=== PATIENT | female | born 1950 | race Caucasian/White ===

== ENCOUNTER 2020-06-29 08:57 | Emergency (ER) | payer MEDICARE, OTHER, SELFPAY ==
--- NOTE | 2020-06-29 09:05 | ED.GENADULT ---
HPI - General Adult General Chief complaint: Ear Stated complaint: Ear infection/dizziness Time Seen by Provider: 06/29/20 09:05 Source: patient Mode of arrival: ambulatory Limitations: no limitations History of Present Illness HPI narrative: 69-year-old female patient presents to the [facility] with complaints of fullness in the left ear for the past 2 days. Patient states it started 1 day when she was eating and states that she felt like she needed to pop in her ear but is unable to. Patient states that she woke up this morning and has some dizziness as well as a little bit of nausea. Denies any fevers, body aches or chills. Denies any actual pain to the ear. Patient states she has had a runny nose recently. Denies any cough, chest pain or shortness of breath. Patient denies taking anything for her symptoms. Patient states that at times when she gets allergies or seasonal sinus issues she has taken Flonase in the past but currently does not have any Flonase at this time. Related Data Home Medications Medication Instructions Recorded Confirmed aspirin 81 mg tablet,delayed 81 mg PO DAILY 10/10/19 11/04/19 release cholecalciferol (vitamin D3) 125 5,000 unit PO DAILY 10/10/19 11/04/19 mcg (5,000 unit) capsule Lantus Solostar U-100 Insulin 11/04/19 Allergies Allergy/AdvReac Type Severity Reaction Status Date / Time apixaban Allergy Unknown Rash Verified 06/29/20 09:12 canagliflozin Allergy Unknown Other Verified 06/29/20 09:12 cortisone Allergy Unknown Other Verified 06/29/20 09:12 pioglitazone Allergy Unknown Other Verified 06/29/20 09:12 Low Fat Milk Allergy Unknown Other Uncoded 10/09/19 12:14 Review of Systems Review of Systems: Narrative: CONSTITUTIONAL: Denies fever, chills, or sweats. EYES: Denies visual changes, redness, or discharge. ENT: Positive rhinorrhea, denies congestion, sore throat, positive fullness to left ear x2 days CARDIOVASCULAR: Denies chest pain, palpitations, or edema. RESPIRATORY: Denies cough or dyspnea. GASTROINTESTINAL: Denies abdominal pain, nausea, vomiting, or diarrhea. GENITOURINARY: Denies dysuria or hematuria. SKIN: Denies rash or itching. MUSCULOSKELETAL: Denies back pain, joint pain, or myalgia. NEUROLOGIC: Denies headache, numbness, or weakness. PSYCHIATRIC: Denies anxiety or depression. [facility] Past Medical History Medical History Chronic renal insufficiency, stage III (moderate) Coronary artery disease involving autologous artery coronary bypass graft Diabetes mellitus Hyperlipidemia associated with type 2 diabetes mellitus Hypertension associated with diabetes Iron deficiency anemia Ischemic cardiomyopathy Paroxysmal atrial fibrillation Vitamin B12 deficiency Vitamin D deficiency Surgical History Surgical History Hx of CABG S/P OBDULIO-BSO Family History Family History Other Diabetes mellitus Family history of arthritis Hypertension Social History Social History Smoking status: Never smoker Second hand tobacco smoke exposure: No Alcohol intake: never Comments At the time of my signature I agree with nursing past medical history, surgical, social, and family history. There is no relevant family history pertinent to the presenting complaint. Exam Narrative: Exam Narrative: GENERAL: Well-appearing, well-nourished, and in no acute distress. HEAD: Normocephalic, atraumatic. EYES: PERRLA and EOMI. ENT: Nares clear, no rhinorrhea or epistaxis. Mucous membranes moist. Posterior pharynx with no erythema, tonsillectomy, exudates or lesions present. There is some fluid noted behind the left TM on exam. No foreign bodies to the canal. No erythema noted. NECK: Supple. No lymphadenopathy CHEST: Clear to auscultation. No respiratory distress.
[2020-06-29 09:10] VITALS: BP 154/74; PULSE 75; RESP 20; TEMP 36.3; O2SAT 100
== END 2020-06-29 09:35 | disposition home or self-care (01) ==
PROVIDERS: Emergency Provider Nurse Practitioner Family; PCP Family Medicine
DX: H93.8X2 Other specified disorders of left ear (principal); I12.9 Hypertensive chronic kidney disease with stage 1 through stage 4 chronic kidney disease, or unspecified chronic kidney disease; E11.22 Type 2 diabetes mellitus with diabetic chronic kidney disease; N18.3 Chronic kidney disease, stage 3 (moderate); Z79.4 Long term (current) use of insulin; E78.5 Hyperlipidemia, unspecified; I48.0 Paroxysmal atrial fibrillation; Z95.5 Presence of coronary angioplasty implant and graft; Z79.82 Long term (current) use of aspirin
CPT/HCPCS: 99213; G0463

== ENCOUNTER 2020-10-12 08:32 | Emergency (ER) | payer MEDICARE, OTHER, SELFPAY ==
[2020-10-12 08:39] VITALS: BP 161/74; PULSE 87; RESP 16; TEMP 36.3; O2SAT 100
--- NOTE | 2020-10-12 08:54 | ED.SKABFB ---
HPI - Skin/Abscess/Foreign Bdy General Chief complaint: Skin/Abscess/Foreign Body Stated complaint: lt foot pos insfection Source: patient and RN notes reviewed Limitations: no limitations History of Present Illness HPI narrative: The patient, on several meds including insulin, presents with skin eruption. Patient states that she is seen by podiatry after ORIF several years ago. She developed a plantar callus and had that excised this week. She has since noticed for a couple days, well lateral to the excision site, pain and redness where her previous hardware is located at the proximal fifth [and other metatarsals]. Symptoms are mild, worse with palpation, unrelieved with given Bactroban cream; he denies fever, prior/other rashes, abscess/induration, discharge, streaking. Patient advised will be given 2 antibiotics, to see orthopedics in follow-up Related Data Home Medications Medication Instructions Recorded Confirmed aspirin 81 mg tablet,delayed 81 mg PO DAILY 10/10/19 11/04/19 release cholecalciferol (vitamin D3) 125 5,000 unit PO DAILY 10/10/19 11/04/19 mcg (5,000 unit) capsule Lantus Solostar U-100 Insulin 11/04/19 Allergies Allergy/AdvReac Type Severity Reaction Status Date / Time apixaban Allergy Unknown Rash Verified 08/30/20 14:15 canagliflozin Allergy Unknown Other Verified 08/30/20 14:15 pioglitazone Allergy Unknown Other Verified 08/30/20 14:15 Low Fat Milk Allergy Unknown Other Uncoded 10/09/19 12:14 Review of Systems Review of Systems: Narrative: General/Constitutional: No weight loss,fever Eyes: N0: Redness,discharge Ears/Nose/Throat: No: Epistaxis,ear discharge Respiratory: Denies: Hemoptysis Gastrointestinal: No Vomiting, Bleeding-rectal Skin: No Lumps, eruption Neurologic: No Focal Weakness,Sz Hematologic: Denies: Petechiae/Purpura Psychiatric: No: Suicida ideationl All Other Systems: Reviewed and Negative REPLACED BY [facility] Past Medical History Medical History (Updated 10/12/20 @ 09:42 by Jatinder Soliz MD) Chronic renal insufficiency, stage III (moderate) Coronary artery disease involving autologous artery coronary bypass graft Diabetes mellitus Hyperlipidemia associated with type 2 diabetes mellitus Hypertension associated with diabetes Iron deficiency anemia Ischemic cardiomyopathy Paroxysmal atrial fibrillation Vitamin B12 deficiency Vitamin D deficiency Surgical History Surgical History Hx of CABG S/P OBDULIO-BSO Family History Family History Other Diabetes mellitus Family history of arthritis Hypertension Social History Social History Smoking status: Never smoker Second hand tobacco smoke exposure: No Alcohol intake: never Comments At time of signature, agree with nursing past medical, surgical, social and family history. There is no relevant family history pertinent to the presenting complaint Exam Narrative: Exam Narrative: General Appearance: Well appearing, Well nourished, No distress EYE: PERRLA, EOMI, Conjunctiva clear Ears: External ear normal, Auditory canal normal Nose: Normal nose, Nares clear Mouth/Throat: Normal appearing, Normal lips Supple Respiratory: Airway patent, No respiratory distress Musculoskeletal: Normal strength (mostly intact, limited flexion/extension by pain), Tenderness (mild laterally, with mild decreased ROM), mild swelling (laterally), Other : fifth MT tenderness. Plantar callus procedure site well-healing without redness Skin: Warm, Dry, 2-3cm sized area of redness at the proximal fifth metatarsal without abscess/induration Neurological: A&O x3, S Normal affect Course Vital Signs Vital signs: Vital Signs Temperature 97.4 F L 10/12/20 08:39 Pulse Rate 87 10/12/20 08:39 Respiratory Rate 16 10/12/20 08:39 Blood Pressure 161/74 H 12
== END 2020-10-12 09:10 | disposition home or self-care (01) ==
PROVIDERS: Emergency Provider Emergency Medicine; PCP Family Medicine
DX: T81.40XA Infection following a procedure, unspecified, initial encounter (principal); I12.9 Hypertensive chronic kidney disease with stage 1 through stage 4 chronic kidney disease, or unspecified chronic kidney disease; E11.22 Type 2 diabetes mellitus with diabetic chronic kidney disease; N18.30 Chronic kidney disease, stage 3 unspecified; Z79.4 Long term (current) use of insulin; I25.10 Atherosclerotic heart disease of native coronary artery without angina pectoris; Z95.1 Presence of aortocoronary bypass graft; I48.0 Paroxysmal atrial fibrillation; E55.9 Vitamin D deficiency, unspecified
CPT/HCPCS: 99213; G0463

== ENCOUNTER 2021-03-14 10:44 | Emergency (ER) | payer MEDICARE, OTHER, SELFPAY ==
[2021-03-14 10:53] VITALS: BP 112/72; PULSE 88; RESP 16; TEMP 36.8; O2SAT 100
--- NOTE | 2021-03-14 11:03 | ED.SKABFB ---
HPI - Skin/Abscess/Foreign Bdy General Chief complaint: Skin/Abscess/Foreign Body Stated complaint: infection on right foot Time Seen by Provider: 03/14/21 11:00 Source: patient and RN notes reviewed Mode of arrival: ambulatory Limitations: no limitations History of Present Illness HPI narrative: 70-year-old female presents with concern for a wound on the bottom of her left foot. Reports she has had a chronic callus on the bottom of her right foot since she had a major foot surgery several years ago. Reports the callus had developed a scab, reports the scab came off and now there is a wound in the center of the callus. Reports she has been using mupirocin ointment, however has run out the mupirocin ointment. Reports distal to the open wound she has redness, slight swelling to her foot. MD complaint: other (wound) Related Data Home Medications Medication Instructions Recorded Confirmed aspirin 81 mg tablet,delayed 81 mg PO DAILY 10/10/19 11/04/19 release cholecalciferol (vitamin D3) 125 5,000 unit PO DAILY 10/10/19 11/04/19 mcg (5,000 unit) capsule Allergies Allergy/AdvReac Type Severity Reaction Status Date / Time apixaban Allergy Unknown Rash Verified 08/30/20 14:15 canagliflozin Allergy Unknown Other Verified 08/30/20 14:15 pioglitazone Allergy Unknown Other Verified 08/30/20 14:15 Low Fat Milk Allergy Unknown Other Uncoded 10/09/19 12:14 Review of Systems Review of Systems: Narrative: CONSTITUTIONAL: Denies malaise, chills, sweats, or fever. SKIN: Reports wound to the dorsal left foot with distal redness and swelling MUSCULOSKELETAL: Denies muscle skeletal pain All systems reviewed & are unremarkable except as noted in HPI and below PMFSH Past Medical History Medical History (Updated 03/14/21 @ 11:21 by Nita Hernandez NP) Chronic renal insufficiency, stage III (moderate) Coronary artery disease involving autologous artery coronary bypass graft Diabetes mellitus Hyperlipidemia associated with type 2 diabetes mellitus Hypertension associated with diabetes Iron deficiency anemia Ischemic cardiomyopathy Paroxysmal atrial fibrillation Vitamin B12 deficiency Vitamin D deficiency Surgical History Surgical History Hx of CABG S/P OBDULIO-BSO Family History Family History Other Diabetes mellitus Family history of arthritis Hypertension Social History Social History Smoking status: Never smoker Second hand tobacco smoke exposure: No Alcohol intake: never Comments At time of signature, agree with nursing past medical, surgical, social and family history. There is no relevant family history pertinent to the presenting complaint Exam Narrative: Exam Narrative: GENERAL: Well-appearing, well-nourished, and in no acute distress. HEAD: Normocephalic, atraumatic. EYES: PERRLA, conjunctivae clear NECK: Supple. CHEST: Speaks in full sentences. No respiratory distress. HEART: Regular rate and rhythm. Normal and equal peripheral pulses. EXTREMITIES: Left foot has normal strength and sensation, normal range of motion. No edema or ecchymosis. 5/5 strength with digit flexion and extension. Normal sensation with sensitivity to light touch and pain. No point tenderness. Capillary refill less than 3 seconds. SKIN: Warm, dry. 5 cm callus noted to the dorsal left foot with a central wound. The wound has a pink tissue bed and appears to possibly be tunneling. Distal to the wound the dorsal foot has approximately 8 cm diameter area of mild edema and erythema with small patches of ecchymosis NEURO: Alert and oriented x3. PSYCH: Normal mood and affect Course Course Emergency Course: Wet-to-dry dressing applied to the wound, patient instructed on how to do wet-to-dry dressing at home, patient instructed she needs to follow-up with wound c
== END 2021-03-14 11:27 | disposition home or self-care (01) ==
PROVIDERS: Emergency Provider Nurse Practitioner; PCP Family Medicine
DX: S91.302A Unspecified open wound, left foot, initial encounter (principal); X58.XXXA Exposure to other specified factors, initial encounter; I13.10 Hypertensive heart and chronic kidney disease without heart failure, with stage 1 through stage 4 chronic kidney disease, or unspecified chronic kidney disease; E11.22 Type 2 diabetes mellitus with diabetic chronic kidney disease; N18.30 Chronic kidney disease, stage 3 unspecified; I25.10 Atherosclerotic heart disease of native coronary artery without angina pectoris; E78.5 Hyperlipidemia, unspecified; D50.9 Iron deficiency anemia, unspecified; I48.91 Unspecified atrial fibrillation; I25.5 Ischemic cardiomyopathy; Z95.1 Presence of aortocoronary bypass graft; Z79.82 Long term (current) use of aspirin
CPT/HCPCS: 99213; G0463

== ENCOUNTER 2021-05-12 14:06 | Outpatient (CLI) | payer MEDICARE, OTHER, SELFPAY ==
[2021-05-12 14:31] LABS: Basophils Absolute Auto 0.1 K/mm3 (0.0-0.1); Basophils Percent Auto 0.7 % (0.2-1.2); Eosinophils Absolute Auto 0.8 K/mm3 (0-0.3); Eosinophils Percent Auto 7.3 % (0-4.4); Hematocrit 35.2 % (37.0-47.0); Hemoglobin 10.7 g/dL (12.0-15.0); Immature Granulocyte Absolute 0.05 K/mm3 (0.00-0.031); Immature Granulocyte Percent A 0.4 % (0-0.5); Lymphocytes Percent Auto 9.6 % (18.3-44.2); Mean Corpuscular HGB Conc 30.4 g/dl (32-36); Mean Corpuscular Hemoglobin 24.4 pg (26-34); Mean Corpuscular Volume 80.4 fl (80-100); Mean Platelet Volume 9.8 fl (7.4-10.4); Monocytes Absolute Auto 0.7 K/mm3 (0.1-0.6); Monocytes Percent Auto 5.9 % (2.6-8.5); Neutrophils Absolute Auto 8.8 K/mm3 (1.3-6.7); Neutrophils Percent Auto 76.1 % (45.5-73.1); Platelet Count Result 322 k/mm3 (150-375); Red Blood Count 4.38 M/mm3 (4.2-5.4); Red Cell Distribution Width 17.4 % (11.5-14.5); Reticulocyte Hemoglobin Conten 27.3 pg (28.2-35.7); Reticulocyte Percent 1.84 % (0.7-4.3); Reticulocytes Absolute 0.08 B/L (32.2-175.7); White Blood Count 11.5 K/mm3 (4.5-10.0)
[2021-05-12 19:42] LABS: Iron 43 ug/dL (37-170)
[2021-05-12 19:45] LABS: Alanine Aminotransferase 13 U/L (4-35); Albumin Level 4.2 g/dL (3.5-5.1); Alkaline Phosphatase 91 U/L (38-126); Anion Gap 12 mmol/L (8-16); Aspartate Amino Transferase 22 U/L (14-36); Bilirubin,Total 0.4 mg/dL (0.2-1.3); Blood Urea Nitrogen 30 mg/dL (7-17); Calcium 9.4 mg/dL (8.4-10.2); Carbon Dioxide 27 mmol/L (22-30); Chloride 102 mmol/L (98-107); Estimated Glomerular Filt Rate 37; Glucose 150 mg/dL (65-105); Potassium 4.6 mmol/L (3.4-5.0); Sodium 141 mmol/L (137-145)
[2021-05-12 19:53] LABS: Percent Iron Saturation 12 % (20-50)
[2021-05-12 20:50] LABS: Vitamin B12 > 1000.0 pg/mL (239-931)
== END 2021-05-12 14:07 | disposition home or self-care (01) ==
LOC: ANHLAB 14:12
PROVIDERS: PCP Family Medicine; Visit Provider Internal Medicine Hematology & Oncology
DX: D64.9 Anemia, unspecified (principal)
CPT/HCPCS: 36415; 80053; 82607; 82668; 82728; 82746; 83540; 83550; 85025; 85046

== ENCOUNTER 2021-08-13 10:42 | Emergency (ER) | payer MEDICARE, OTHER, SELFPAY ==
[2021-08-13 10:51] VITALS: BP 180/82; PULSE 92; RESP 16; TEMP 36.6; O2SAT 100
--- NOTE | 2021-08-13 11:17 | ED.EXTPRO ---
HPI - Extremity Problem General Chief complaint: Extremity Problem,Nontraumatic Stated complaint: INFECTION ON L FOOT Source: patient and RN notes reviewed Limitations: no limitations History of Present Illness HPI Narrative: The patient on several meds including for diabetes, presents with foot discomfort. Patient states she has been seen by podiatry in the past and had an ORIF about five years ago ; she also has 2 diabetic foot ulcers- a central arch one felt to be from post-op callus . She now complains of couple day worsening,of several year history ,of the larger quarter sized ulcer in the arch of the foot, with some slight surrounding flushing, streaking . No fever, discharge, malodor,foot neuropathy; she has a second, smaller better stage I ulcer distally at MTPJ. She would like antibiotics before an upcoming trip, patient advised to see PMD or podiatry in follow-up Related Data Home Medications Medication Instructions Recorded Confirmed aspirin 81 mg tablet,delayed 81 mg PO DAILY 10/10/19 11/04/19 release cholecalciferol (vitamin D3) 125 5,000 unit PO DAILY 10/10/19 11/04/19 mcg (5,000 unit) capsule Allergies Allergy/AdvReac Type Severity Reaction Status Date / Time apixaban Allergy Unknown Rash Verified 08/30/20 14:15 canagliflozin Allergy Unknown Other Verified 08/30/20 14:15 pioglitazone Allergy Unknown Other Verified 08/30/20 14:15 Low Fat Milk Allergy Unknown Other Uncoded 10/09/19 12:14 Review of Systems Review of Systems: General/Constitutional: No weight loss,fever Eyes: N0: Redness,discharge Ears/Nose/Throat: No: Epistaxis,ear discharge Respiratory: Denies: Hemoptysis Gastrointestinal: No Vomiting, Bleeding-rectal Skin: No Lumps, REPORTS eruption Neurologic: No Focal Weakness,Sz Hematologic: Denies: Petechiae/Purpura Psychiatric: No: Suicida ideationl All Other Systems: Reviewed and Negative [facility] Past Medical History Medical History (Updated 08/14/21 @ 11:25 by Jatinder Soliz MD) Chronic renal insufficiency, stage III (moderate) Coronary artery disease involving autologous artery coronary bypass graft Diabetes mellitus Hyperlipidemia associated with type 2 diabetes mellitus Hypertension associated with diabetes Iron deficiency anemia Ischemic cardiomyopathy Paroxysmal atrial fibrillation Vitamin B12 deficiency Vitamin D deficiency Surgical History Surgical History Hx of CABG S/P OBDULIO-BSO Family History Family History Other Diabetes mellitus Family history of arthritis Hypertension Social History Social History Second hand tobacco smoke exposure: No Alcohol intake: never Comments At time of signature, agree with nursing past medical, surgical, social and family history. There is no relevant family history pertinent to the presenting complaint Exam Narrative: General Appearance: Well appearing, Conjunctiva clear Ears: External ear normal, Auditory canal normal Nose: Normal nose, Nares clear Mouth/Throat: Normal appearing, Normal lips, Supple Respiratory: Airway patent, No respiratory distress MS-foot : Quarter size, grade 2-3 diabetic foot ulcer center of arch with dry, good borders; Nl strength (mostly intact, limited flexion/extension by pain), Min tenderness ( laterally, with mild decreased ROM), no swelling Other (no anterior drawer, no collateral laxity, no Achilles tenderness, no fifth MT tenderness) Skin: Warm, Dry, Normal color, scant flush/inflamed early cellulitis lateral aspect of foot Neurological: A&O x3, Speech clear, CN II-XII intact Psychiatric: Normal mood, Normal affect Course Vital Signs Vital signs: Vital Signs Temperature 97.9 F 08/13/21 10:51 Pulse Rate 92 08/13/21 10:51 Respiratory Rate 16 08/13/21 10:51 Blood Pressure 180/82 H 08/13/21 10:51 Pulse Ox
== END 2021-08-13 11:28 | disposition home or self-care (01) ==
PROVIDERS: Emergency Provider Emergency Medicine; PCP Family Medicine
DX: L03.116 Cellulitis of left lower limb (principal); E10.621 Type 1 diabetes mellitus with foot ulcer; L97.519 Non-pressure chronic ulcer of other part of right foot with unspecified severity; Z79.82 Long term (current) use of aspirin; I13.10 Hypertensive heart and chronic kidney disease without heart failure, with stage 1 through stage 4 chronic kidney disease, or unspecified chronic kidney disease; E10.22 Type 1 diabetes mellitus with diabetic chronic kidney disease; N18.30 Chronic kidney disease, stage 3 unspecified; E78.5 Hyperlipidemia, unspecified; D50.9 Iron deficiency anemia, unspecified; I25.5 Ischemic cardiomyopathy; I48.0 Paroxysmal atrial fibrillation; Z79.4 Long term (current) use of insulin
CPT/HCPCS: 99213; G0463

== ENCOUNTER 2021-08-21 08:44 | Outpatient (CLI) | payer MEDICARE, OTHER, SELFPAY ==
[2021-08-21 09:03] LABS: Basophils Absolute Auto 0.1 K/mm3 (0.0-0.1); Basophils Percent Auto 0.6 % (0.2-1.2); Eosinophils Absolute Auto 0.1 K/mm3 (0-0.3); Eosinophils Percent Auto 0.9 % (0-4.4); Hematocrit 37.7 % (37.0-47.0); Hemoglobin 11.5 g/dL (12.0-15.0); Immature Granulocyte Absolute 0.07 K/mm3 (0.00-0.031); Immature Granulocyte Percent A 0.5 % (0-0.5); Lymphocytes Absolute Auto 0.94 K/mm3 (0.9-3.2); Lymphocytes Percent Auto 6.5 % (18.3-44.2); Mean Corpuscular HGB Conc 30.5 g/dl (32-36); Mean Corpuscular Hemoglobin 24.6 pg (26-34); Mean Corpuscular Volume 80.7 fl (80-100); Mean Platelet Volume 9.6 fl (7.4-10.4); Monocytes Absolute Auto 0.9 K/mm3 (0.1-0.6); Monocytes Percent Auto 6.1 % (2.6-8.5); Neutrophils Absolute Auto 12.3 K/mm3 (1.3-6.7); Neutrophils Percent Auto 85.4 % (45.5-73.1); Platelet Count Result 407 k/mm3 (150-375); Red Blood Count 4.67 M/mm3 (4.2-5.4); Red Cell Distribution Width 16.2 % (11.5-14.5); White Blood Count 14.4 K/mm3 (4.5-10.0)
[2021-08-21 10:43] LABS: Iron 43 ug/dL (37-170)
[2021-08-21 10:46] LABS: Anion Gap 12 mmol/L (8-16); Blood Urea Nitrogen 46 mg/dL (7-17); Calcium 9.5 mg/dL (8.4-10.2); Carbon Dioxide 27 mmol/L (22-30); Chloride 101 mmol/L (98-107); Estimated Glomerular Filt Rate 26; Glucose 91 mg/dL (65-110); Potassium 4.3 mmol/L (3.4-5.0); Sodium 140 mmol/L (137-145)
[2021-08-21 10:54] LABS: Percent Iron Saturation 11 % (20-50)
== END 2021-08-21 08:45 | disposition home or self-care (01) ==
LOC: ANHLAB 08:46
PROVIDERS: PCP Family Medicine; Visit Provider Internal Medicine Hematology & Oncology
DX: D64.9 Anemia, unspecified (principal)
CPT/HCPCS: 36415; 80048; 82728; 83540; 83550; 85025

== ENCOUNTER 2021-12-29 10:18 | Emergency (ER) | payer MEDICARE, OTHER, SELFPAY ==
--- NOTE | 2021-12-29 10:52 | ED.FEMALEGU ---
HPI - Female Genitourinary General Chief complaint: Urogenital-Female Stated complaint: uti symptoms Time Seen by Provider: 12/29/21 10:50 Source: patient, RN notes reviewed and old records reviewed Mode of arrival: ambulatory Limitations: no limitations History of Present Illness HPI Narrative: 71 year old female who presents to [facility] with complaints of urinary burning, frequency, urgency and voiding of small amounts which started yesterday. Patient reports that she had increased symptoms during the night with pain and noted blood when she wipes. Patient denies any vaginal discharge or any itching. Patient reports that she had a urinary tract infection about a year ago but does not have history of frequent urinary tract infections but does have some renal insufficiency. Patient denies any suprapubic pain or any CVA tenderness, denies any fevers, chills or sweats, denies any nausea vomiting or any diarrhea. MD elicited complaint: dysuria and other (urgency frequency and voiding small amounts) Pertinent past history: diabetes Related Data Home Medications Medication Instructions Recorded Confirmed aspirin 81 mg tablet,delayed 81 mg PO DAILY 10/10/19 12/29/21 release cholecalciferol (vitamin D3) 125 5,000 unit PO DAILY 10/10/19 12/29/21 mcg (5,000 unit) capsule mecobalamin (vitamin B12) 5,000 5,000 mcg PO DAILY 09/23/21 12/29/21 mcg lozenge dabigatran etexilate [Pradaxa] mg PO 12/29/21 ferrous sulfate 5,000 mg PO BID 12/29/21 12/29/21 insulin aspart U-100 [Novolog 5 unit SUBCUT TID 12/29/21 12/29/21 Flexpen U-100 Insulin] insulin glargine [Lantus Solostar 96 unit SUBCUT DAILY 12/29/21 12/29/21 U-100 Insulin] semaglutide [Ozempic] 2.5 mg SUBCUT WEEKLY 12/29/21 12/29/21 Allergies Allergy/AdvReac Type Severity Reaction Status Date / Time apixaban Allergy Unknown Rash Verified 12/29/21 10:39 canagliflozin Allergy Unknown Other Verified 12/29/21 10:39 pioglitazone Allergy Unknown Other Verified 12/29/21 10:39 Low Fat Milk Allergy Unknown Other Uncoded 12/29/21 10:39 Review of Systems Review of Systems: CONSTITUTIONAL: Denies fever, chills, or sweats. EYES: Denies visual changes, redness, or discharge. ENT: Denies rhinorrhea, congestion, sore throat, or otalgia. CARDIOVASCULAR: Denies chest pain, palpitations, or edema. RESPIRATORY: Denies cough or dyspnea. GASTROINTESTINAL:Denies any abdominal pain, nausea, vomiting, or diarrhea. GENITOURINARY: Positive for dysuria or hematuria. SKIN: Denies rash or itching. MUSCULOSKELETAL: Denies back pain, joint pain, or myalgia. NEUROLOGIC: Denies headache, numbness, or weakness. PSYCHIATRIC: Positive for history of anxiety or depression. All systems reviewed & are unremarkable except as noted in HPI and below PMFSH Past Medical History Medical History (Updated 12/29/21 @ 11:02 by Bonnie Davis NP) Chronic renal insufficiency, stage III (moderate) Coronary artery disease involving autologous artery coronary bypass graft Diabetes mellitus Hyperlipidemia associated with type 2 diabetes mellitus Hypertension associated with diabetes Iron deficiency anemia Ischemic cardiomyopathy Paroxysmal atrial fibrillation Vitamin B12 deficiency Vitamin D deficiency Surgical History Surgical History Hx of CABG S/P OBDULIO-BSO Family History Family History Other Diabetes mellitus Family history of arthritis Hypertension Social History Social History Second hand tobacco smoke exposure: No Alcohol intake: never Substance use: never Substance use type: does not use Gender identity (if verbalized by the patient): Female Comments At time of signature, agree with nursing past medical, surgical, social and family history. There is no relevant family history pertinent to the presenting complaint Ex
[2021-12-29 11:02] VITALS: BP 151/75; PULSE 90; RESP 18; TEMP 36.2; O2SAT 100
[2021-12-29 11:06] VITALS: BP 151/75; PULSE 90; RESP 18; TEMP 36.2; O2SAT 100
== END 2021-12-29 11:09 | disposition home or self-care (01) ==
PROVIDERS: Emergency Provider Registered Nurse; PCP Family Medicine
DX: N39.0 Urinary tract infection, site not specified (principal); I13.10 Hypertensive heart and chronic kidney disease without heart failure, with stage 1 through stage 4 chronic kidney disease, or unspecified chronic kidney disease; E11.22 Type 2 diabetes mellitus with diabetic chronic kidney disease; N18.30 Chronic kidney disease, stage 3 unspecified; Z79.4 Long term (current) use of insulin; I25.10 Atherosclerotic heart disease of native coronary artery without angina pectoris; E78.5 Hyperlipidemia, unspecified; D50.9 Iron deficiency anemia, unspecified; I48.0 Paroxysmal atrial fibrillation; E53.8 Deficiency of other specified B group vitamins; E55.9 Vitamin D deficiency, unspecified; Z95.1 Presence of aortocoronary bypass graft
CPT/HCPCS: 81003; 87077; 87086; 87088; 87186; 99213; G0463

== ENCOUNTER 2022-04-15 08:16 | Outpatient (CLI) | payer MEDICARE, OTHER, SELFPAY ==
--- NOTE | ~2022-04-15 | XR_ITS ---
XR ankle LT min 3V DATE: 04/15/2022 08:56 INDICATION: Plantar pressure ulcer TECHNIQUE: 4 views COMPARISON: None FINDINGS: There is postoperative change from surgical fusion at the tarsal area. Mild posterior and prominent plantar calcaneal enthesopathy. There is mild soft tissue irregularity at the plantar aspect of the foot at the proximal metatarsal a kenney consistent with clinically reported soft tissue ulcer. No definite radiographic evidence of osteo myelitis is noted. Three-phase radionuclide bone scan would be more sensitive for detection of osteom yelitis. No fracture or dislocation of the ankle or disruption of the ankle mortise. Anterior and posterior tibial artery calcification. IMPRESSION: Soft tissue ulcer of the plantar aspect of the foot at the proximal metatarsal area Status post surgical fusion of the tarsal area. Mild posterior and prominent plantar calcaneal enthesopathy Reviewed, dictated and finalized at location A.
--- NOTE | ~2022-04-15 | XR_ITS ---
XR foot LT min 3V DATE: 04/15/2022 08:56 INDICATION: Pressure ulcer at plantar foot. History of diabetes. TECHNIQUE: 4 views COMPARISON: None FINDINGS: Osteopenia. There is postoperative change from tarsal and fourth and fifth tarsometatarsal fusion. There is focal soft tissue irregularity along the plantar aspect of the fluid in the proximal metatar jacqueline area consistent with clinically reported esophageal ulcer. No apparent underlying osteomyelitis i s noted. 3 phase radionuclide bone scan would be more sensitive for detection of osteomyelitis. Mild posterior and prominent plantar calcaneal enthesopathy. No fracture, dislocation, periosteal reaction or bone destruction is detected. IMPRESSION: Postoperative change and tarsal fusion and fourth and fifth tarsometatarsal fusion Osteopenia Soft tissue ulcer plantar aspect of foot and proximal metatarsal area Mild posterior and prominent plantar calcaneal enthesopathy Reviewed, dictated and finalized at location A. IMPRESSION: Postoperative change and tarsal fusion and fourth and fifth tarsome tatarsal fusion Osteopenia Soft tissue ulcer plantar aspect of foot and proximal metatarsal area Mild posterior and prominent plantar calcaneal enthesopathy
== END 2022-04-15 08:17 | disposition home or self-care (01) ==
PROVIDERS: PCP Family Medicine; Visit Provider Family Medicine
DX: M25.572 Pain in left ankle and joints of left foot (principal); L03.116 Cellulitis of left lower limb; Z98.890 Other specified postprocedural states; M85.89 Other specified disorders of bone density and structure, multiple sites; M77.32 Calcaneal spur, left foot; L97.429 Non-pressure chronic ulcer of left heel and midfoot with unspecified severity
CPT/HCPCS: 73610; 73630

== ENCOUNTER 2022-04-21 07:14 | Outpatient (RCR) | payer MEDICARE, OTHER, SELFPAY ==
[2022-01-29 10:19] VITALS: BMI 31.4
--- NOTE | 2022-04-21 09:26 | PM.CNOR ---
Assessment and Plan Assessment and plan (1) Diabetic foot ulcer: Qualifiers: Diabetes mellitus type: type 1 Diabetic foot ulcer location: midfoot Laterality: right Non-pressure ulcer stage: with fat layer exposed Qualified Code(s): E10.621 - Type 1 diabetes mellitus with foot ulcer; L97.412 - Non-pressure chronic ulcer of right heel and midfoot with fat layer exposed Code(s): E11.621 - Type 2 diabetes mellitus with foot ulcer; L97.509 - Non-pressure chronic ulcer of other part of unspecified foot with unspecified severity Status: Acute Assessment and Plan: History, exam and radiographs reviewed with the patient. Referring physician records reviewed. Chronic wound on the plantar midfoot. Evidence of bone causing pressure on the soft tissue noted on radiographs. Now with callus on the plantar aspect of the 4th metatarsal head as well. All requiring debridement under sterile conditions with a #15 blade knife. See procedure note. Condition, nature, etiology and course of natural history discussed. Conservative and operative treatment options reviewed as well as the risks and benefits of both. Patient would benefit from bone debridement in the OR, graft and cast application. Patient would need to be toe-touch weight bearing x3 weeks for sutures and graft protection. Patient then would likely require TCC following suture removal until final closure of wound bed. Would benefit from Charcot outer layer boot for pressure offload. Patient will require custom orthotics/depth shoes following. Patient would require updated labs prior to proceeding with surgical intervention. Orders dispesed today. Continue current wound care with silver foam. Will contact patient with lab results and determine surgical candidacy after discussion with Dr. Braga. Patient will also further consider the above recommendations as she is hesitant to proceed with surgery due to living alone. History of Present Illness HPI Consult date: 04/21/22 Chief complaint: diabetic foot ulcer E10.621 & L97.412 Narrative: 71-year-old female evaluated today in the [place] wound clinic for concerns of a left plantar diabetic foot ulcer. Patient underwent surgery approximately 7 years ago due to Charcot with a transmetatarsal fusion by a ict programmer in [place], [place]. She no longer sees her ict programmer. She has been suffering from a plantar midfoot wound for the last several months and being treated in the [facility]. Recent radiographs of the left foot reveal postoperative change from tarsal and fourth and fifth tarsometatarsal fusion. No apparent underlying osteomyelitis is noted. Orthopedic consult requested due to difficulty with wound closure. Review of Systems Constitutional: Constitutional: Reports no additional constitutional complaints, Denies chills, Denies fatigue, Denies fever(s), Denies headache(s) and Denies weakness Eyes: Eyes: Denies change in vision ENT: Reports Normal hearing present and Denies headache(s) Cardiovascular: Cardiovascular: Denies chest pain and Denies dyspnea Respiratory: Respiratory: Denies cough, Denies dyspnea and Denies wheezing Gastrointestinal: Gastrointestinal: Denies constipation, Denies diarrhea, Denies nausea and Denies vomiting Genitourinary: Genitourinary: Denies hematuria, Denies dysuria and Denies urinary urgency Musculoskeletal: Musculoskeletal: Reports as per HPI, Denies numbness and Denies tingling Integumentary/Breasts: Skin/Breast: Reports as per HPI Neurologic: Reports as per HPI, Reports Normal hearing present, Denies headache(s), Denies numbness, Denies tingling and Denies weakness Psychiatric: Psychiatric: Reports no additional psychiatric complaints Endocrine: Endocrine: Reports no additional endocrine complaints and Denies fatigue Hematologic/Lymphatic: Hematologic/Lymphatic: Reports no additional hematologic/lymphatic complaints Allergic/Immunologic: Allergic/Immunologic: Reports
== END 2022-04-29 23:59 | disposition home or self-care (01) ==
LOC: ANHWOC 07:14
PROVIDERS: PCP Family Medicine; Referring Provider Nurse Practitioner Family; Visit Provider Orthopaedic Surgery
DX: E10.621 Type 1 diabetes mellitus with foot ulcer (principal); L97.412 Non-pressure chronic ulcer of right heel and midfoot with fat layer exposed
CPT/HCPCS: 99212; 99213; A9270; G0463

== ENCOUNTER 2022-05-28 13:46 | Outpatient (CLI) | payer MEDICARE, OTHER, SELFPAY ==
--- NOTE | ~2022-05-28 | US_ITS ---
US arterial ankle brachial ind INDICATION: Decreased cysts and pulses of the feet TECHNIQUE: Segmental pressures and plethysmographic and Doppler waveforms of the brachial and lower e xtremity arteries were obtained. COMPARISON: None. FINDINGS: Right and left brachial artery pressures of 183 mm Hg and 177 mm Hg, respectively, are concordant (no rmal difference <= 30 mmHg). The right ankle-brachial index (LELO) is 0.72 (normal >= 0.9-1.0). The right great toe-brachial index (TBI) is 0.4 (normal >= 0.60). The left LELO is 0.96. The left TBI is 0.23. IMPRESSION: 1. Diminished right LELO and bilateral toe brachial indices, consistent with moderate peripheral arter ial disease. Reviewed, dictated and finalized at location A. IMPRESSION: 1. Diminished right LELO and bilateral toe brachial indices, consistent with mod erate peripheral arterial disease.
== END 2022-05-28 13:47 | disposition home or self-care (01) ==
PROVIDERS: PCP Family Medicine; Visit Provider Family Medicine
DX: R09.89 Other specified symptoms and signs involving the circulatory and respiratory systems (principal)
CPT/HCPCS: 93922

== ENCOUNTER 2022-07-20 14:21 | Outpatient (CLI) | payer MEDICARE, OTHER, SELFPAY ==
--- NOTE | 2022-07-20 14:28 | ECG_ITS ---
Measurements Intervals [place] Rate: 83 P: TN: 0 QRS: 1 QRSD: 104 T: -69 QT: 402 QTc: 473 Interpretive Statements ATRIAL FIBRILLATION INCOMPLETE RIGHT BUNDLE BRANCH BLOCK CANNOT RULE OUT SEPTAL INFARCT, AGE INDETERMINATE ST-T WAVE ABNORMALITY IN ANTEROLAT/INF LEADS- CONSIDER ISCHEMIA BASELINE ARTIFACT- I, II, III, AVR, AVL, AVF ABNORMAL ECG NO PREVIOUS ECG AVAILABLE FOR COMPARISON Electronically Signed On 07-20-2022 16:56:46 CDT by Loco Villa D.O.
[2022-07-20 15:05] LABS: Hematocrit 36.2 % (37.0-47.0); Hemoglobin 11.1 g/dL (12.0-15.0)
[2022-07-20 15:17] LABS: Anion Gap 11 mmol/L (8-16); Blood Urea Nitrogen 33 mg/dL (7-17); Calcium 8.8 mg/dL (8.4-10.2); Carbon Dioxide 26 mmol/L (22-30); Chloride 102 mmol/L (98-107); Estimated Glomerular Filt Rate 34; Glucose 120 mg/dL (65-110); Potassium 4.1 mmol/L (3.4-5.0); Sodium 139 mmol/L (137-145)
== END 2022-07-20 14:22 | disposition home or self-care (01) ==
LOC: ANHSURGERY 14:26
PROVIDERS: Anesthesiology; PCP Family Medicine; Visit Provider Orthopaedic Surgery
DX: E11.59 Type 2 diabetes mellitus with other circulatory complications (principal); I10 Essential (primary) hypertension; D64.9 Anemia, unspecified; I45.10 Unspecified right bundle-branch block
CPT/HCPCS: 36415; 80048; 85014; 85018; 93005

== ENCOUNTER 2022-07-23 01:42 | Day surgery (SDC) | payer MEDICARE, OTHER, SELFPAY ==
[2022-07-17 14:58] VITALS: BMI 31.5
--- NOTE | 2022-07-17 15:05 | PC.NURSE ---
Report to the Outpatient Waiting Room, entrance under the green pavilion located off [facility], at time _0900_ on date _[id number]_. OR Time: _1100_. Time changes happen often and if your time is changed the preop area will call you the afternoon before. - You and your visitor will be asked to self-screen and do not enter if you have any COVID symptoms. - Only one visitor and NO children visitors are allowed at this time. - The patient visitor is requested to leave or wait in car when not with patient due to restrictions. - A mask is required within the hospital. Patients may have clear liquids (water, carbonated beverages, clear teas, apple juice) until 3 hours prior to surgery with a maximum of 20 ounces. - No food from midnight until time of surgery Take the following medications with a SIP of water the morning of surgery: ___Levothyroxine and Metoprolol Medications to discontinue per physician __Vitamin d3 and Vitamin B-12_stop [id number] Patient is stopping Pradaxa 07-17-[address] Sparks's order. No Insulin morning of surgery. Please no make-up, nail ukrainian, hairspray, perfume, deodorant, or body powder the day of surgery. No jewelry (including any body piercings) or valuables the day of surgery, leave them at home. Please take a shower or bath the night before, or the morning of, surgery with an antibacterial soap. Wear comfortable, loose fitting clothing. - Jewelry must be removed prior to entering the operating room. Rings and piercings that are not removed may be cut off. - The hospital will not accept responsibility for valuables. - Please leave all valuables, including medications, at home the day of surgery. If you are going home after surgery, a licensed industrial tractor driver must drive you home. - NO public transportation without another adult. - We recommend that an adult stay with you for 24 hours following discharge. - We also recommend that you do not drive, make important decision, drink alcoholic beverages, or take any drugs that were not prescribed by your health care provider for at least 24 hours after your discharge time. Follow any additional instructions given to you from your surgeon. If you or anyone in your household have experienced Covid symptoms in the past week, please notify your surgeon or the nurse liaison at the phone number below for possible testing. Telephone instructions given to __Patient___and asked if any additional questions and then verbalized understanding. Patient advised to call surgeon office or pre surgery nurse liaison [phone] if any additional questions.
--- NOTE | 2022-07-22 13:28 | WPDANESEPPF ---
Anes - Initial Pre Proc Eval Procedure: Operation Date: 07/23/22 11:00 Proposed Procedures p Debridement Left Diabetic Foot Ulcer, Excision Exostosis, Graft Application - Hugh Braga MD Date/Time: 07/22/22 13:28 Surgeon: Hugh Braga MD Pre Op Diagnosis: Lt Diabetic Foot Ulcer with Bone Exposure Patient Data Age: 72 Gender: F Height: 1.57 m Weight: 78.2 kg Allergies Allergy/AdvReac Type Severity Reaction Status Date / Time apixaban Allergy Unknown Rash Verified 07/17/22 14:50 canagliflozin Allergy Unknown Other Verified 07/17/22 14:50 pioglitazone Allergy Unknown Other Verified 07/17/22 14:50 Low Fat Milk Allergy Unknown Other Uncoded 07/17/22 14:50 Home Medications Medication Instructions Recorded Confirmed Type aspirin 81 mg tablet,delayed 81 mg PO DAILY 10/10/19 07/17/22 History release (Adult Low Dose Aspirin) cholecalciferol (vitamin D3) 125 5,000 unit PO DAILY 10/10/19 07/17/22 History mcg (5,000 unit) capsule blood-glucose meter (Accu-Chek #1 ea 05/26/21 05/22/22 Rx Cassandra Plus Meter) lancets 32 gauge #300 ea 05/26/21 05/22/22 Rx blood sugar diagnostic (Accu-Chek #300 ea 09/23/21 05/22/22 Rx Cassandra Plus test strips) mecobalamin (vitamin B12) 5,000 5,000 mcg PO DAILY 09/23/21 07/17/22 History mcg lozenge lancets (Accu-Chek Softclix #100 ea 10/07/21 05/22/22 Rx Lancets) ferrous sulfate 325 mg (65 mg 325 mg PO BID 12/29/21 07/17/22 History iron) tablet insulin aspart U-100 100 unit/mL 5 unit subcut TID 12/29/21 07/17/22 History (3 mL) subcutaneous pen (Novolog Flexpen U-100 Insulin aspart) dabigatran etexilate 150 mg 150 mg PO BID #180 caps 04/20/22 07/17/22 Rx capsule (Pradaxa) simvastatin 20 mg tablet 20 mg PO DAILY #90 tabs 04/20/22 07/17/22 Rx clobetasol 0.05 % topical foam 1 applic topical DAILY #50 grams 05/22/22 07/17/22 Rx gentamicin 0.1 % topical ointment 1 applic topical DAILY #15 grams 05/22/22 07/17/22 Rx fenofibrate nanocrystallized 48 mg See Rx Instructions .Route 06/10/22 07/17/22 Rx tablet .COMPLEX #90 tabs furosemide 40 mg tablet See Rx Instructions .Route 06/10/22 07/17/22 Rx .COMPLEX #90 tabs insulin glargine 100 unit/mL (3 96 unit (0.96 mL) subcut DAILY #90 06/10/22 07/17/22 Rx mL) subcutaneous pen (Lantus mL Solostar U-100 Insulin) levothyroxine 50 mcg tablet See Rx Instructions .Route 06/10/22 07/17/22 Rx .COMPLEX #90 tabs losartan 25 mg tablet 25 mg PO DAILY #90 tabs 06/10/22 07/17/22 Rx metoprolol succinate 100 mg See Rx Instructions .Route 06/10/22 07/17/22 Rx tablet,extended release 24 hr .COMPLEX #90 tabs dulaglutide 1.5 mg/0.5 mL 1.5 mg (0.5 mL) subcut WEEKLY #2 mL 06/18/22 07/17/22 Rx subcutaneous pen injector (Trulicity) fluticasone propionate 50 1 spray intranasal DAILY PRN 07/17/22 07/17/22 History mcg/actuation nasal Allergy Symptoms spray,suspension silver carbonate 0.11 % topical 1 applic topical DAILY 07/17/22 07/17/22 History gel (Normlgel Ag) tramadol 50 mg tablet 50 mg PO Q4H PRN pain #30 tabs 07/21/22 Rx Patient hx anesthesia problems: none Family hx anesthesia problems: none Results Review: All pre-operative results and documents have been reviewed as part of the pre-operative evaluation. [facility] Past Medical History Medical History (Updated 07/23/22 @ 09:47 by Reynold Barraza MD) CHF (congestive heart failure) ef 30-35% Chronic renal insufficiency, stage III (moderate) Coronary artery disease involving autologous artery coronary bypass graft Diabetes mellitus Exostosis of left foot Hyperlipidemia associated with type 2 diabetes mellitus Hypertension associated with diabetes Iron deficiency anemia Ischemic cardiomyopathy Paroxysmal atrial fibrillation Vitamin B12 deficiency Vitamin D deficiency Surgical History Surgical History Hx of CABG S/P OBDULIO-BSO Family History Family History (Reviewed 07/21/22 @
--- NOTE | ~2022-07-23 | XR_ITS ---
XR surgery orthopedic DATE: 07/23/2022 11:26 INDICATION: Excision of exostosis and debridement of left foot ulcer TECHNIQUE: 3 views 6 seconds fluoroscopy time COMPARISON: 04/15/2022 left foot FINDINGS: There is pre-existing hardware of the foot. There is subcutaneous emphysema along the plantar aspect of the midfoot. IMPRESSION: Surgical debridement of soft tissues of the plantar aspect of mid foot Reviewed, dictated and finalized at [facility]. Reviewed, dictated and finalized at [facility]. IMPRESSION: Surgical debridement of soft tissues of the plantar aspect of mid f oot
--- NOTE | 2022-07-23 06:58 | WPDHPUPDATE1 ---
History and Physical Update Update Date/Time: 07/23/22 06:58 History and Physical has been reviewed, including an updated exam of the patient. There are NO changes in the patient's condition. Risks, benefits, and alternatives have been discussed and questions answered. Patient agrees to proceed with procedure.
[2022-07-23] MEDS: ACETAMINOPHEN 500 MG TABLET 1000 MG PO (10:00)
[2022-07-23] MEDS: LACTATED RINGERS 1,000 ML 30 ML IV CONT (10:09)
[2022-07-23 10:13] LABS: Glucose Point of Care 115 mg/dl (65-105)
[2022-07-23 10:26] VITALS: BP 180/78; PULSE 85; RESP 16; TEMP 36.2; O2SAT 100
[2022-07-23] MEDS: KETOROLAC 15 MG/ML VIAL (*BKC) IV PUSH (10:32)
[2022-07-23] MEDS: ceFAZolin 2 GM/D5W 50 ML 2 GM/50 ML BAG IVPB (10:41)
[2022-07-23 11:56] VITALS: BP 155/67; PULSE 63; RESP 23
--- NOTE | 2022-07-23 12:10 | W.PM.PROC2 ---
Procedure Note - Detailed Date of Procedure 07/23/22 Pre-op Diagnosis Lt Diabetic Foot Ulcer with Bone Exposure, left foot exostosis Post-op Diagnosis Same Procedure Performed Excision of exostosis left foot, excisional debridement of diabetic foot ulcer 2 x 2 cm, application of synthetic graft. 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 At risk for infection, osteomyelitis further complications. Radiographs show exostosis on the plantar aspect of the foot. Presents now for operative treatment. Findings Plantar ulcer measures 2 x 2 cm with 3 mm depth. Large plantar exostosis from the cuboid and base of the 5th metatarsal. Description of Procedure Patient identified in the preoperative holding. Informed consent given. Operative extremity marked. Patient received intravenous antibiotics. Patient brought to the operating room where underwent general anesthetic by anesthesia team. Positioned supine on operating room table. Time-out performed confirming the patient, site of the surgery and the plan. Left foot prepped draped usual sterile surgical fashion using a Betadine prep solution. Local anesthetic with 0.5% Marcaine plain. Incision mapped out a lateral border of the left foot with marker pen. Longitudinal incision made over the lateral border the foot with a 15 blade knife. Hemostasis controlled electrocautery. Dissection then carried down to the 5th metatarsal. The peroneal tendons were retracted proximally. Soft tissue then elevated off the plantar 5th metatarsal cuboid and the 4th metatarsal base. Large exostosis encounter. This was resected with a sagittal saw, osteotome and rongeur. Image intensification confirmed resection level. Wound was thoroughly irrigated the incision was closed with 3-0 Monocryl interrupted suture for the subcutaneous tissue and 0 Prolene interrupted suture for the skin. Fifteen blade knife used to sharply debride the plantar ulcer. Skin, subcutaneous tissue and muscle which was nonviable was excised and passed off. After debridement the wound measured 2 x 2 cm with 3 mm depth. This was thoroughly irrigated with solution. Grafting was then performed. 3 x 3 cm amnio excel + membrane laid into the wound. 5 x 5 cm cytal wound matrix then applied to the wound and sutured in with 3-0 Monocryl interrupted suture. Sterile dressing applied. Total contact cast then applied. The patient was then woken from anesthesia, extubated and taken to the recovery room in stable condition. All sponge, needle, instrument counts were correct at the end of the case. Implants Cytal wound matrix 5X5cm Amnioexcel plus 3x3cm Estimated Blood Loss 20 Tourniquet Time 0 Drains No Packing Yes Pathology None sent Complications None Condition Stable Disposition PACU
[2022-07-23 12:14] LABS: Glucose Point of Care 98 mg/dl (65-105)
[2022-07-23 12:30] VITALS: BP 151/91; PULSE 64; RESP 20
[2022-07-23 13:00] VITALS: BP 176/66; PULSE 66; RESP 20
== END 2022-07-23 13:10 | disposition home or self-care (01) ==
PROVIDERS: PCP Family Medicine; Visit Provider Orthopaedic Surgery
PROC: (CPT 11044; principal; 2022-07-23 11:00)
DX: E11.621 Type 2 diabetes mellitus with foot ulcer (principal); L97.426 Non-pressure chronic ulcer of left heel and midfoot with bone involvement without evidence of necrosis; M89.9 Disorder of bone, unspecified; I13.0 Hypertensive heart and chronic kidney disease with heart failure and stage 1 through stage 4 chronic kidney disease, or unspecified chronic kidney disease; I50.9 Heart failure, unspecified; E11.22 Type 2 diabetes mellitus with diabetic chronic kidney disease; M18.30 Unilateral post-traumatic osteoarthritis of first carpometacarpal joint, unspecified hand; E78.5 Hyperlipidemia, unspecified; I48.0 Paroxysmal atrial fibrillation; I25.810 Atherosclerosis of coronary artery bypass graft(s) without angina pectoris; D50.9 Iron deficiency anemia, unspecified; I25.5 Ischemic cardiomyopathy; E55.9 Vitamin D deficiency, unspecified; E53.8 Deficiency of other specified B group vitamins; Z95.1 Presence of aortocoronary bypass graft; E66.9 Obesity, unspecified; Z68.31 Body mass index [BMI] 31.0-31.9, adult; Z79.82 Long term (current) use of aspirin; Z79.01 Long term (current) use of anticoagulants; Z79.4 Long term (current) use of insulin; Z79.899 Other long term (current) drug therapy
CPT/HCPCS: 11044; 15275; 82948; 99199; A9270; J0690; J1885; J2704; J3010; J3370; J7120; Q4137

== ENCOUNTER 2022-08-21 12:52 | Inpatient (IN) | payer MEDICARE, OTHER, SELFPAY ==
--- NOTE | ~2022-08-21 | XR_ITS ---
EXAMINATION: XR foot LT min 3V DATE: 08/21/2022 12:34 INDICATION: Foot abscess TECHNIQUE: Dorsoplantar, lateral, and 2 oblique views of the left foot were obtained. COMPARISON: 04/15/2022 FINDINGS: There are changes of tarsal fusion. There is a plantar ulceration and soft tissue swelling of the foot near the proximal metatarsals. Soft tissue gas is seen in the medial and lateral aspect o f the foot near the midfoot as well as tracking into the visualized soft tissues of the distal leg. T he bones are osteopenic. There are moderate osteoarthritis of multiple interphalangeal joints. Program Or Project Administrator ior and plantar calcaneal enthesophytes are noted. IMPRESSION: 1. Soft tissue ulceration of the foot near the proximal metatarsals with soft tissue gas seen in the foot and visualized distal leg. Consider CT with contrast to evaluate the location and extent of the soft tissue gas. Reviewed, dictated and finalized at location B. IMPRESSION: 1. Soft tissue ulceration of the foot near the proximal metatarsals with soft t issue gas seen in the foot and visualized distal leg. Consider CT with contrast to evaluate the location and extent of the soft tissue gas.
--- NOTE | ~2022-08-21 | XR_ITS ---
EXAMINATION: XR ankle LT min 3V DATE: 08/21/2022 12:34 INDICATION: Right foot abscess TECHNIQUE: Anteroposterior, lateral, mortise, and additional oblique view of the ankle were obtained. COMPARISON: 04/15/2022 FINDINGS: Changes of tarsal fusion are noted. There is plantar soft tissue swelling and ulceration of the foot projecting near the proximal metatarsals. Soft tissue gas tracks into the ankle and superio rly in the visualized portions of the distal leg to at least the superior margin of the radiograph. IMPRESSION: 1. Plantar ulceration foot with soft tissue gas extending into the visualized portions of the distal leg. Consider CT of the lower extremity with contrast to assess location and extent of soft tissue ga s. Reviewed, dictated and finalized at location B. IMPRESSION: 1. Plantar ulceration foot with soft tissue gas extending into the visualized p ortions of the distal leg. Consider CT of the lower extremity with contrast to assess location and extent of soft tissue gas.
--- NOTE | ~2022-08-21 | CT_ITS ---
EXAMINATION: CTA LE LT DATE: 08/31/2022 15:25 INDICATION: Gangrene at the left foot and ankle TECHNIQUE: Computed tomographic angiography (CTA) of the left lower limb beginning in the distal thig h and extending through the foot was performed with 150 mL Omnipaque 350 intravenous contrast. Automa tracy exposure control and iterative reconstruction technique were employed. The dose-length product w as 190.91 mGy-cm. COMPARISON: CT left foot dated 08/21/2022 FINDINGS: There is extensive atherosclerotic disease beginning in the left popliteal artery and extending throu gh the arteries of the left calf. Multifocal moderate 50-70% and severe >70% stenosis in the poplitea l artery. Moderate stenosis at the origin of the left anterior tibial artery. Moderate stenosis of th e tibioperoneal trunk. There is multifocal mild to moderate stenosis along the left posterior tibial artery. There is complete occlusion of the peroneal artery beginning at its origin and extending to t he distal lower leg where there is reconstitution via a collateral from the posterior tibial artery s hortly cephalad to the level of the ankle. Osteoarthritis at the left knee with moderate joint space during the patellofemoral compartment and m ild joint space narrowing in the medial and lateral compartments which could be underestimated on non weightbearing imaging. No left knee joint effusion. There is mild to moderate fatty atrophy of the mu sculature throughout the left lower leg. 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 At the medial midfoot there is dorsal subluxation and proximal mi gration of the cuneiforms relative to the head of the talus which is rotated in the plantar direction as with a severe pes planus. At the lateral midfoot there is fusion between the base of the cuboid a nd the fourth and fifth metatarsals. There is a residual screw extending from dorsal plantar through the head of the talus. Also unchanged is a dorsal sided staple extending between the head of the talu s and the base of the middle cuneiform. 3 additional screws at the more lateral midfoot have been rem alisa since the prior study. There is packing material at the sites of likely soft tissue debridement at the plantar, medial and lateral aspects of the left mid and hindfoot. Again seen are cortical eros ions in osteolysis involving portions of the calcaneus, cuboid, base of the fourth and fifth metatars als, anterior talus and anterior calcaneus as well as the distal margin of the lateral malleolus conc erning for osteomyelitis. Some of the bone at the site of the fused cuboid and fourth and fifth metat arsals bases also appears to been debrided since the prior study. There is extension of some gas and fluid along the course of the peroneal and flexor hallux is longest tendons, the latter extending up to 5 cm proximal to the level of the tibiotalar joint line. IMPRESSION: 1. Extensive atherosclerotic disease throughout the arteries of the left lower leg with complete occ lusion of the majority of the peroneal artery which reconstitutes distally by collaterals and multifo kay moderate to severe stenosis at the left popliteal artery and moderate stenosis along the anterior tibial and posterior tibial arteries as well as the tibioperoneal trunk. 2. Malalignment at the left mid and hindfoot likely sequela of chronic trauma and subsequent surgery. Again seen are findings consistent with osteomyelitis with interval postoperative soft tissue debrid ement and removal of 3 of the prior fixation screws. Correlate with procedure note for further detail . 3. Soft tissue gas which could be related to either the recent surgery or soft tissue infection at th e hindfoot and extending proximally along the flexor hallux longus and peroneal tendon sheaths. Reviewed, dictated and finalized at location B. Electronically si
--- NOTE | ~2022-08-21 | CT_ITS ---
EXAMINATION: CT foot LT wo/w con DATE: 08/21/2022 16:12 INDICATION: Left foot ulcer. TECHNIQUE: Computed tomography (CT) of the left foot was performed without and with 100 mL Omnipaque 350 intravenous contrast. Automated exposure control and iterative reconstruction technique were empl oyed. The dose-length product was 1131.42 mGy-cm. COMPARISON: Left foot radiographs 08/21/2022, 04/15/22, CT 11/08/15 FINDINGS: There are old fracture dislocation deformities of the midfoot resulting in a rocker-bottom foot. The talus articulates with the medial, intermediate, and lateral cuneiforms. Navicular is absen t. There is fusion of the bases of the fourth and fifth metatarsals with cuboid and lateral cuneiform . There is a fracture of cuboid with broken screw. The broken screw passes into anterior calcaneus, b ut there is lucency around the screw in calcaneus, consistent with loosening. There are erosions of c uboid involving the fracture site. There is an ulcer plantar to this area. Another screw passes throu gh the cuboid fracture. There is a screw in distal talus. There is a staple in intermediate cuneiform and distal talus. There is soft tissue gas in the lateral midfoot and in anterior calcaneus and dist al talus. There is ankylosis at first interphalangeal joint. IMPRESSION: 1. Old fracture dislocation deformities of the midfoot resulting in a rocker-bottom foot with changes of fusion procedures. 2. Ulcer plantar to cuboid with osteomyelitis and pathologic fracture of cuboid with broken screw. Ga s in calcaneus and talus, consistent with osteomyelitis. Reviewed, dictated and finalized at location A. IMPRESSION: 1. Old fracture dislocation deformities of the midfoot resulting in a rocker-maru ttom foot with changes of fusion procedures. 2. Ulcer plantar to cuboid with osteomyelitis and pathologic fracture of cuboid with broken screw. Gas in calcaneus and talus, consistent with osteomyelitis.
--- NOTE | ~2022-08-21 | XR_ITS ---
EXAMINATION: XR foot LT min 3V DATE: 08/25/2022 11:30 INDICATION: Left foot osteomyelitis. Postop. TECHNIQUE: 3 views of left foot were obtained. COMPARISON: Left foot radiographs 08/21/2022, CT 08/21/22 FINDINGS: Again seen are old fracture dislocations of the midfoot resulting in a rocker-bottom foot. Hardware has been removed from the foot. There are changes of bone debridement at the plantar aspect of the midfoot. Again seen is a staple at the dorsal midfoot. There is a screw in distal talus. There is fusion of the bases of the fourth and fifth metatarsals and distal cuboid. There are surgical nery nges of base of third middle phalanx and head of third proximal phalanx. There is mild osteoarthritis of many of the interphalangeal joints. There is ankylosis of first interphalangeal joint. There is a skin defect plantar to the midfoot. There are areas of soft tissue gas in the midfoot and posterior to distal tibia. IMPRESSION: 1. Old fracture dislocations of the midfoot resulting in a rocker-bottom foot status post fusion proc edures. Interval debridement of the plantar aspect of the midfoot and interval removal of some hardwa re. 2. Gas posterior to distal tibia, likely infectious tenosynovitis. Reviewed, dictated and finalized at location A. IMPRESSION: 1. Old fracture dislocations of the midfoot resulting in a rocker-bottom foot s tatus post fusion procedures. Interval debridement of the plantar aspect of the midfoot and interval removal of some hardware. 2. Gas posterior to distal tibia, likely infectious tenosynovitis.
--- NOTE | 2022-08-21 10:20 | ADMGEN ---
This patient, Marleny Mario, was admitted to 2 Medical Room 259-01. Patient/family oriented to hospital policies and general routines including ID bracelet, bed and alarms, visiting hours, pain management, procedures, bathroom and other care routines, personal items, smoking policy, room service/diet, and visiting hours. Information on how to activate the Rapid Response Team has been discussed. Patient/Family are encouraged to report perceived risks to care and to ask questions if they do not understand what they are told or what they should do.
[2022-08-21 10:42] VITALS: BP 132/62; PULSE 60; RESP 20; TEMP 36.8; O2SAT 90
--- NOTE | 2022-08-21 11:47 | PM.CNOR ---
Assessment and Plan Assessment and plan (1) Cellulitis of foot, left: Code(s): L03.116 - Cellulitis of left lower limb Status: Acute (2) Diabetic foot ulcer: Qualifiers: Diabetes mellitus type: type 1 Diabetic foot ulcer location: midfoot Laterality: left Non-pressure ulcer stage: with bone involvement without evidence of necrosis Qualified Code(s): E10.621 - Type 1 diabetes mellitus with foot ulcer; L97.426 - Non-pressure chronic ulcer of left heel and midfoot with bone involvement without evidence of necrosis Code(s): E11.621 - Type 2 diabetes mellitus with foot ulcer; L97.509 - Non-pressure chronic ulcer of other part of unspecified foot with unspecified severity Status: Acute (3) Abscess of left foot: Code(s): L02.612 - Cutaneous abscess of left foot Status: Acute Assessment and Plan: patient admitted to start IV antibiotics and for further evaluation of the left foot. She is 4 weeks status post removal of exostosis and debridement of the ulcer. Appearance of the foot noted to be worsening over the past 3 days. Agree with admit and empiric IV antibiotics. Daily wound care and dressing change. Radiographic evaluation left foot and ankle with plain x-rays and MRI. History of Present Illness HPI Consult date: 08/21/22 Requesting physician: Juan Jiang MD Chief complaint: Cellulitis/ Infected Foot Ulcer Narrative: 72-year-old woman known to the Orthopedic service for chronic left plantar diabetic foot ulcer. Four weeks status post excision of exostosis, debridement of ulcer and application of graft. Was being followed weekly in the [facility] outpatient wound clinic. Earlier in the week noted to have increased swelling and redness of the left medial foot and ankle at the time of cast change. The plantar ulcer continued to show improvement. Patient was started on oral antibiotics ( Keflex) and transition to daily dressing changes with a fracture boot. Patient return to the wound clinic this morning with increased swelling and redness of the left foot and ankle and slightly increased drainage from the ulcer. Concern for cellulitis and possible abscess of the left foot or ankle. Patient admitted for antibiotics and further evaluation. She does report some chills at home. She initially had pain at the left ankle and foot which she states is mildly improved over the past day. Review of Systems Constitutional: Constitutional: Reports no additional constitutional complaints, Denies chills, Denies fatigue, Denies fever(s), Denies headache(s) and Denies weakness Eyes: Eyes: Denies change in vision ENT: Reports Normal hearing present and Denies headache(s) Cardiovascular: Cardiovascular: Denies chest pain and Denies dyspnea Respiratory: Respiratory: Denies cough, Denies dyspnea and Denies wheezing Gastrointestinal: Gastrointestinal: Denies constipation, Denies diarrhea, Denies nausea and Denies vomiting Genitourinary: Genitourinary: Denies hematuria, Denies dysuria and Denies urinary urgency Musculoskeletal: Musculoskeletal: Reports as per HPI, Denies numbness and Denies tingling Integumentary/Breasts: Skin/Breast: Reports as per HPI Neurologic: Reports as per HPI, Reports Normal hearing present, Denies headache(s), Denies numbness, Denies tingling and Denies weakness Psychiatric: Psychiatric: Reports no additional psychiatric complaints Endocrine: Endocrine: Reports no additional endocrine complaints and Denies fatigue Hematologic/Lymphatic: Hematologic/Lymphatic: Reports no additional hematologic/lymphatic complaints Allergic/Immunologic: Allergic/Immunologic: Reports no additional allergic/immunologic complaints and Denies wheezing [facility] Past Medical History Medical History (Updated 08/21/22 @ 11:50 by Hugh Braga MD) Abscess of left foot CHF (congestive heart failure) ef 30-35% Chronic renal insufficiency, stage III (moderate) Coronar
[2022-08-21 12:28] VITALS: BMI 31.7
[2022-08-21 12:29] LABS: Basophils Absolute Auto 0.1 K/mm3 (0.0-0.1); Basophils Percent Auto 0.2 % (0.2-1.2); Eosinophils Absolute Auto 0.1 K/mm3 (0-0.3); Eosinophils Percent Auto 0.4 % (0-4.4); Hematocrit 27.5 % (37.0-47.0); Hemoglobin 8.6 g/dL (12.0-15.0); Immature Granulocyte Absolute 0.31 K/mm3 (0.00-0.031); Immature Granulocyte Percent A 1.5 % (0-0.5); Lymphocytes Absolute Auto 0.36 K/mm3 (0.9-3.2); Lymphocytes Percent Auto 1.7 % (18.3-44.2); Mean Corpuscular HGB Conc 31.3 g/dl (32-36); Mean Corpuscular Hemoglobin 25.1 pg (26-34); Mean Corpuscular Volume 80.4 fl (80-100); Monocytes Absolute Auto 1.1 K/mm3 (0.1-0.6); Monocytes Percent Auto 5.2 % (2.6-8.5); Neutrophils Absolute Auto 18.9 K/mm3 (1.3-6.7); Platelet Count Result 460 k/mm3 (150-375); Red Blood Count 3.42 M/mm3 (4.2-5.4); Red Cell Distribution Width 15.7 % (11.5-14.5); White Blood Count 20.7 K/mm3 (4.5-10.0)
[2022-08-21 12:45] LABS: Anion Gap 13 mmol/L (8-16); Blood Urea Nitrogen 33 mg/dL (7-17); Calcium 8.6 mg/dL (8.4-10.2); Carbon Dioxide 28 mmol/L (22-30); Chloride 92 mmol/L (98-107); Estimated CRCL calculation 32 ml/min; Estimated Glomerular Filt Rate 37; Glucose 257 mg/dL (65-110); Potassium 3.6 mmol/L (3.4-5.0); Sodium 133 mmol/L (137-145)
[2022-08-21 12:57] LABS: Anisocytosis 1+ (NORMAL); Hypochromasia 1+ (NORMAL); Platelet Estimate Adequate (Adequate); Polychromasia 1+ (NORMAL); Schistocytes None Seen (NORMAL)
[2022-08-21 13:05] LABS: Erythrocyte Sedimentation Rate > 140 mm/hr (0-20)
[2022-08-21 13:16] LABS: CRP 27.4 mg/dL (<1.0); Magnesium 1.8 mg/dL (1.6-2.3)
--- NOTE | 2022-08-21 13:22 | PM.IMHP ---
H&P: HPI History of Present Illness Date/Time: 08/21/22 13:22 Chief Complaint: Diabetic foot ulcer Narrative: this is a 72-year-old diabetic patient who has been seen by the wound care clinic and Dr. Braga for diabetic left foot ulcer that she has been dealing with for a year at least. Patient has an ongoing open ulcer plantar aspect left foot for the past year and half. She tried total contact casting for weak with some mild improvement she is currently using a fracture boot with daily dressing changes and she walks with a cane. She has not really had any improvement or healing. Today her white count was noted to be 20.7. H&H 8.6 and 27.5. Her sodium is 133. BUN is 33 and creatinine is 1.4. Which appears to be her baseline. She did have a foot x-ray which shows soft tissue ulceration in the foot near the proximal metatarsals with soft tissue gas seen in the Foot and visualized distal leg. Consider CT with contrast evaluate the location and extent of the Soft tissue gas. Ankle x-ray plantar ulceration foot with soft tissue gas extending into the visualized portion of the distal leg. Consider CT of the lower extremity with contrast to assess location and extent of soft tissue gas. the patient was sent to [facility] as a direct admit from the wound care clinic due to cellulitis of the left foot in a diabetic patient. She is being admitted to inpatient services on the date of service of 08/21/2022. Review of Systems Review of Systems: See HPI All systems reviewed & are unremarkable except as noted in HPI and below Constitutional: Constitutional: Reports as per HPI and Reports no additional constitutional complaints Eyes: Eyes: Reports as per HPI and Reports no additional eye complaints ENT: Reports system reviewed and no additional complaints, except as documented and Reports Normal hearing present Cardiovascular: Cardiovascular: Reports no additional cardiovascular complaints Respiratory: Respiratory: Reports no additional respiratory complaints and Reports no additional respiratory complaints Gastrointestinal: Gastrointestinal: Reports as per HPI and Reports no additional gastrointestinal complaints Musculoskeletal: Musculoskeletal: Reports no additional musculoskeletal complaints Integumentary/Breasts: Skin/Breast: Reports system reviewed and no additional complaints, except as docu and Reports as per HPI Neurologic: Reports system reviewed and no additional complaints, except as documented, Reports as per HPI and Reports Normal hearing present Psychiatric: Psychiatric: Reports no additional psychiatric complaints and Reports as per HPI Endocrine: Endocrine: Reports no additional endocrine complaints Hematologic/Lymphatic: Hematologic/Lymphatic: Reports no additional hematologic/lymphatic complaints Allergic/Immunologic: Allergic/Immunologic: Reports no additional allergic/immunologic complaints [facility] Past Medical History Medical History (Updated 08/21/22 @ 13:49 by Anuradha Terry NP) Abscess of left foot CHF (congestive heart failure) ef 30-35% Chronic renal insufficiency, stage III (moderate) Coronary artery disease involving autologous artery coronary bypass graft Diabetes mellitus Exostosis of left foot Hyperlipidemia associated with type 2 diabetes mellitus Hypertension associated with diabetes Hypothyroidism Iron deficiency anemia Ischemic cardiomyopathy Paroxysmal atrial fibrillation Vitamin B12 deficiency Vitamin D deficiency Surgical History Surgical History Hx of CABG S/P OBDULIO-BSO Family History Family History Grandparent Diabetes mellitus Grandparent Family history of arthritis Sibling Family history of arthritis Mother Family history of arthritis Mother Hypertension Father Hypertension Social History Social History (Updated 08/21/22 @ 13:30 by Anuradha Segovia
[2022-08-21 13:28] LABS: Alanine Aminotransferase 22 U/L (6-35); Albumin Level 3.2 g/dL (3.5-5.1); Alkaline Phosphatase 98 U/L (38-126); Aspartate Amino Transferase 31 U/L (14-36); Bilirubin,Total 0.5 mg/dL (0.2-1.3)
[2022-08-21 13:32] LABS: Hemoglobin A1C 7.8 % (<5.7)
--- NOTE | 2022-08-21 13:36 | ECG_ITS ---
Measurements Intervals [place] Rate: 97 P: TX: 0 QRS: -39 QRSD: 105 T: 4 QT: 388 QTc: 494 Interpretive Statements ATRIAL FIBRILLATION WITH ABERRANT CONDUCTION OR VENTRICULAR PREMATURE COMPLEXES LEFT AXIS DEVIATION [QRS AXIS < -30] POOR R-WAVE PROGRESSION, CANNOT RULE OUT AN OLD SEPTAL MYOCARDIAL INFARCTION CANNOT RULE OUT AN OLD INFERIOR MYOCARDIAL INFARCTION COMPARED TO ECG 07/20/2022 15:03:12 ABERRANT CONDUCTION OF SUPRAVENTRICULAR BEAT(S) NOW PRESENT NONSPECIFIC ST CHANGES HAVE IMPROVED Electronically Signed On 08-22-2022 8:50:12 CDT by Dona Laurent M.D.
[2022-08-21 14:29] VITALS: BMI 31.7
[2022-08-21] MEDS: metroNIDAZOLE 500 MG/ISO 100ML 500 MG/100 ML BAG 100 MG IVPB ×2 (14:42→20:13)
--- NOTE | 2022-08-21 15:11 | PHAR ---
Addendum entered by Nadia Riley [facility] 08/21/22 15:20: ONE SINGLE DOSE PEN WAS SENT TO THE PHARMACY FOR VERIFICATION. NO OTHER PENS IN BOX. Original Note: HOME MED: TRULICITY (DULAGLUTIDE) 1.5 MG/ 0.5 ML; INJECT 1.5 MG SUBQ WEEKLY. VERIFIED BY PHARMACY.
[2022-08-21] MEDS: DEXTROSE 5%/0.9% SOD CHL 1,000 ML 100 ML IV CONT (15:42)
[2022-08-21 16:00] VITALS: BP 132/42; PULSE 88; RESP 20; TEMP 37.1; O2SAT 96
[2022-08-21 16:17] LABS: Glucose Point of Care 271 mg/dl (65-105)
[2022-08-21] MEDS: INSULIN ASPART (*BKC) 100 UNITS/ML SUB-Q (16:20)
[2022-08-21 18:41] LABS: Add Urine Microscopic? YES; Appearance Urine Cloudy (Clear); Bilirubin Urine Negative (Negative); Blood Urine Negative (Negative); Color Urine Yellow (Yellow); Glucose Urine UA 2+ mg/dL (Negative); Ketones Urine Negative (Negative); Leukocyte Esterase Ur Negative LEU/UL (Negative); Nitrate Urine Negative (Negative); Protein Urine 2+ mg/dL (Negative); RBC Urine 0-2 /hpf (0-2); Squamous Epithelial Cell Urine Many /hpf (Few); Urobilinogen Urine Negative mg/dL (<2.0); WBC Urine 0-3 /hpf
[2022-08-21 20:00] VITALS: BP 136/67; PULSE 87; RESP 18; TEMP 36.7; O2SAT 95
[2022-08-21] MEDS: INSULIN GLARGINE (*BKC) 100 UNITS/ML 96 UNITS SUB-Q (20:11)
[2022-08-21] MEDS: DABIGATRAN ETEXILATE 150 MG CAPSULE PO (20:12)
[2022-08-21] MEDS: SIMVASTATIN 20 MG TABLET PO (20:12)
[2022-08-21 20:37] LABS: Glucose Point of Care 297 mg/dl (65-105)
[2022-08-21] MEDS: SODIUM CHLORIDE 0.9% IV 1,000 ML 100 ML IV CONT (21:40)
[2022-08-22] VITALS (8 sets, daily range): BP systolic 128–165; BP diastolic 48–70; PULSE 71–84; RESP 16–18; TEMP 36–37.1; O2SAT 95–100
[2022-08-22] MEDS: metroNIDAZOLE 500 MG/ISO 100ML 500 MG/100 ML BAG 100 MG IVPB ×3 (05:15→21:01)
[2022-08-22] MEDS: SODIUM CHLORIDE 0.9% IV 1,000 ML 100 ML IV CONT (05:15)
[2022-08-22] MEDS: LEVOTHYROXINE SODIUM 50 MCG TABLET PO (05:16)
[2022-08-22 05:50] LABS: Basophils Absolute Auto 0.1 K/mm3 (0.0-0.1); Basophils Percent Auto 0.4 % (0.2-1.2); Eosinophils Absolute Auto 0.3 K/mm3 (0-0.3); Eosinophils Percent Auto 1.8 % (0-4.4); Hematocrit 23.6 % (37.0-47.0); Hemoglobin 7.4 g/dL (12.0-15.0); Immature Granulocyte Absolute 0.24 K/mm3 (0.00-0.031); Immature Granulocyte Percent A 1.4 % (0-0.5); Lymphocytes Percent Auto 5.9 % (18.3-44.2); Mean Corpuscular HGB Conc 31.4 g/dl (32-36); Mean Corpuscular Hemoglobin 24.9 pg (26-34); Mean Corpuscular Volume 79.5 fl (80-100); Mean Platelet Volume 9.3 fl (7.4-10.4); Monocytes Absolute Auto 1.5 K/mm3 (0.1-0.6); Monocytes Percent Auto 8.9 % (2.6-8.5); Neutrophils Absolute Auto 13.9 K/mm3 (1.3-6.7); Neutrophils Percent Auto 81.6 % (45.5-73.1); Platelet Count Result 467 k/mm3 (150-375); Red Blood Count 2.97 M/mm3 (4.2-5.4); Red Cell Distribution Width 15.9 % (11.5-14.5)
[2022-08-22 05:55] LABS: Lactic Acid Reflex 1.1 mmol/L (0.7-2.0)
[2022-08-22 05:59] LABS: Alanine Aminotransferase 20 U/L (6-35); Albumin Level 2.8 g/dL (3.5-5.1); Alkaline Phosphatase 80 U/L (38-126); Anion Gap 13 mmol/L (8-16); Aspartate Amino Transferase 29 U/L (14-36); Bilirubin,Total 0.3 mg/dL (0.2-1.3); Blood Urea Nitrogen 33 mg/dL (7-17); Calcium 8.2 mg/dL (8.4-10.2); Carbon Dioxide 26 mmol/L (22-30); Chloride 97 mmol/L (98-107); Estimated CRCL calculation 32 ml/min; Estimated Glomerular Filt Rate 37; Glucose 81 mg/dL (65-110); Potassium 3.2 mmol/L (3.4-5.0); Sodium 136 mmol/L (137-145)
[2022-08-22 06:13] LABS: CRP 24.2 mg/dL (<1.0)
--- NOTE | 2022-08-22 07:55 | PM.IMPN ---
Progress Note: A&P Assessment and Plan (1) Osteomyelitis: Code(s): M86.9 - Osteomyelitis, unspecified Status: Acute Assessment and Plan: CT with ulcer plantar to cuboid with osteomyelitis and pathologic fracture of cuboid with broken screw. Gas in calcaneus and talus, consistent with osteomyelitis. Antibiotics started overnight with downtrending leukocytosis. -Continue cefepime, metronidazole and vancomycin -Orthopedic Surgery Consulted -Wound Nurse Consulted (2) Positive blood culture: Code(s): R78.81 - Bacteremia Status: Acute Assessment and Plan: 11/02 with gram negative bacilli. Will continue cefepime, vancomycin and metronidazole for now. -Repeat blood cultures in AM (3) Diabetic foot ulcer: Qualifiers: Diabetes mellitus type: type 1 Diabetic foot ulcer location: midfoot Laterality: left Non-pressure ulcer stage: with bone involvement without evidence of necrosis Qualified Code(s): E10.621 - Type 1 diabetes mellitus with foot ulcer; L97.426 - Non-pressure chronic ulcer of left heel and midfoot with bone involvement without evidence of necrosis Code(s): E11.621 - Type 2 diabetes mellitus with foot ulcer; L97.509 - Non-pressure chronic ulcer of other part of unspecified foot with unspecified severity Status: Acute Assessment and Plan: See plan as noted above. (4) CHF (congestive heart failure): Code(s): I50.9 - Heart failure, unspecified Status: Acute Assessment and Plan: Compensated. On BB, arb and furosemide. Continue. Will monitor. (5) Anemia: Code(s): D64.9 - Anemia, unspecified Status: Acute Assessment and Plan: Preoperatively hemoglobin 11 and anemia has been worsening since surgery. Takes iron at home. Appears to be drifting down. Will monitor. -Continue ferrous sulfate 324 mg -Repeat H/H this evening (6) Chronic renal insufficiency, stage III (moderate): Code(s): N18.3 - Chronic kidney disease, stage 3 (moderate) Status: Acute Assessment and Plan: Baseline creatinine 1.4-1.5. Stable. Will monitor -Avoid nephrotoxic agents -Renally dose medications (7) Paroxysmal atrial fibrillation: Code(s): I48.0 - Paroxysmal atrial fibrillation Status: Acute Assessment and Plan: Rate controlled on metoprolol and anticoagulation with dabigatran. Continue. (8) Hypertension associated with diabetes: Code(s): E11.59 - Type 2 diabetes mellitus with other circulatory complications; I10 - Essential (primary) hypertension Status: Acute Assessment and Plan: On metoprolol and losartan. Continue. (9) Hyperlipidemia associated with type 2 diabetes mellitus: Code(s): E11.69 - Type 2 diabetes mellitus with other specified complication; E78.5 - Hyperlipidemia, unspecified Status: Acute Assessment and Plan: Needs to be on high intensity statin. Unclear if there is an allergy to atorvastatin or rosuvastatin. Will continue simvastatin for now. Continue home fenofibrate. (10) Diabetes mellitus: Code(s): E11.9 - Type 2 diabetes mellitus without complications Status: Acute Assessment and Plan: Hemoglobin a1c 7.8. Takes dulaglutide and novolog at home. May bring dulaglutide as it is nonformulary. 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 Continue. (12) Hypothyroidism: Code(s): E03.9 - Hypothyroidism, unspecified Status: Acute Assessment and Plan: TSH 2.82. Euthyroid. -Levothyroxine 50 mcg daily Subjective Date/time seen: 08/22/22 07:55 Patient denies fever, chills. Sa
[2022-08-22 08:35] LABS: Glucose Point of Care 68 mg/dl (65-105)
[2022-08-22] MEDS: CYANOCOBALAMIN 1,000 MCG TABLET 5000 MCG PO (09:48)
[2022-08-22] MEDS: FUROSEMIDE 40 MG TABLET PO (09:48)
[2022-08-22] MEDS: ASPIRIN 81 MG ENTERIC TABLET PO (09:48)
[2022-08-22] MEDS: CHOLECALCIFEROL 1,000 UNITS TABLET 5000 UNITS PO (09:48)
[2022-08-22] MEDS: FENOFIBRATE,MICRONIZED 48 MG TABLET PO (09:48)
[2022-08-22] MEDS: FERROUS SULFATE 324 MG TABLET PO (09:48)
[2022-08-22] MEDS: METOPROLOL SUCCINATE EXT REL 100 MG TABCR PO (09:49)
[2022-08-22] MEDS: LOSARTAN POTASSIUM 25 MG TABLET PO (09:49)
--- NOTE | 2022-08-22 09:53 | PM.PNORT ---
Progress Note: A&P Assessment and Plan (1) Diabetic foot ulcer: Qualifiers: Diabetes mellitus type: type 1 Diabetic foot ulcer location: midfoot Laterality: left Non-pressure ulcer stage: with bone involvement without evidence of necrosis Qualified Code(s): E10.621 - Type 1 diabetes mellitus with foot ulcer; L97.426 - Non-pressure chronic ulcer of left heel and midfoot with bone involvement without evidence of necrosis Code(s): E11.621 - Type 2 diabetes mellitus with foot ulcer; L97.509 - Non-pressure chronic ulcer of other part of unspecified foot with unspecified severity Status: Acute Assessment and Plan: CT scan results reviewed with the patient. Diabetic foot ulcer with infection with involvement of the hindfoot. Surgical option at this time would be amputation. Patient has declined. Patient has elected for treatment with IV antibiotics and close observation. Her white count is slightly improved. We did discuss possible worsening of the infection and need for surgery. Questions were answered. She verbalizes understanding. Continue with IV antibiotics. Continue with wound care and daily dressing changes. Will continue to observe. (2) Cellulitis of foot, left: Code(s): L03.116 - Cellulitis of left lower limb Status: Acute Subjective Subjective Date/Time Seen: 08/22/22 09:53 Principal diagnosis: Left diabetic foot ulcer with foot infection Interval history: patient states pain slightly improved today. No new complaints. Dressing change this morning. Feels like there is less swelling. Exam Const: General: comfortable and no acute distress Neck: Neck: supple and no JVD Resp: Effort & Inspection: normal respiratory effort Cardio: Rate: regular rate Rhythm: regular rhythm Extrem: Right upper extremity: normal to inspection Left upper extremity: normal to inspection Right lower extremity: foot Details: motor-sensory exam Details: two point discrimination abnormal Location: in all toes and light-touch abnormal Location: in all toes Left lower extremity: foot Details: toes with normal ROM, no edema, vascular exam Details: dorsalis pedis pulse present and abnormal capillary refill Location: of all toes and motor-sensory exam two point discrimination abnormal in all toes and light-touch abnormal in all toes; no unusual warmth and no ecchymosis Other: Wound on the plantar aspect of the left foot with graft, incorporating well. Bone palpable but improved. No signs of infection of ulcer. Ulcer dimensions 1 x 1.1 cm and 0.9 cm depth to bone. Surrounding tissue viable. Callus/pressure formation on the plantar aspect of the 4th metatarsal head unchanged. Incision lateral foot, well approximated. Sutures removed. new redness and swelling over the anterior and medial ankle, minimal fluctuance. Redness partially resolves with elevation. Tender to palpation. Psych: Mental Status: mental status grossly normal Affect: normal affect Objective Data Vital Signs Vital Signs: Vital Signs - 24 hr 08/21/22 10:42 08/21/22 11:54 08/21/22 16:00 Temperature 98.2 F 98.7 F Pulse Rate 60 88 Respiratory Rate 20 20 Blood Pressure 132/62 132/42 L Pulse Oximetry 90 96 Oxygen Delivery Room Air 08/21/22 20:00 08/21/22 20:00 08/22/22 00:00 Temperature 98.0 F 98.1 F Pulse Rate 87 71 Respiratory Rate 18 17 Blood Pressure 136/67 136/49 L Pulse Oximetry 95 99 Oxygen Delivery Room Air 08/22/22 03:48 08/22/22 07:35 08/22/22 09:46 Temperature 98.8 F 98.3 F Pulse Rate 83 79 Respiratory Rate 18 17 Blood Pressure 150/59 H 142/56 H Pulse Oximetry 95 100 Oxygen Delivery Room Air 08/22/22 09:49 Temperature Pulse Rate 78 Respiratory Rate Blood Pressure Pulse Oximetry Oxygen Delivery Intake/Output Intake/Output: Intake & Output 08/19/22 08/20/22 08/21/22 08/22/22 23:59 23:59 23:59 23:59 Intake Total 1280 1250 Output Total 250 700 Ba
[2022-08-22 09:57] LABS: Glucose Point of Care 121 mg/dl (65-105)
[2022-08-22 12:11] LABS: Glucose Point of Care 93 mg/dl (65-105)
[2022-08-22] MEDS: ACETAMINOPHEN 325 MG TABLET 650 MG PO (15:37)
[2022-08-22 17:24] LABS: Glucose Point of Care 236 mg/dl (65-105)
[2022-08-22] MEDS: INSULIN ASPART (*BKC) 100 UNITS/ML SUB-Q (17:27)
[2022-08-22 18:45] LABS: Hemoglobin 7.9 g/dL (12.0-15.0)
[2022-08-22] MEDS: INSULIN GLARGINE (*BKC) 100 UNITS/ML 96 UNITS SUB-Q (21:00)
[2022-08-22] MEDS: SIMVASTATIN 20 MG TABLET PO (21:00)
[2022-08-22] MEDS: DABIGATRAN ETEXILATE 150 MG CAPSULE PO (21:00)
[2022-08-23] VITALS (8 sets, daily range): BP systolic 135–168; BP diastolic 51–72; PULSE 60–93; RESP 16–20; TEMP 36.3–37.1; O2SAT 95–100
[2022-08-23 04:15] LABS: Estimated CRCL calculation 28 ml/min; Estimated Glomerular Filt Rate 32
[2022-08-23] MEDS: LEVOTHYROXINE SODIUM 50 MCG TABLET PO (06:19)
[2022-08-23] MEDS: metroNIDAZOLE 500 MG/ISO 100ML 500 MG/100 ML BAG 100 MG IVPB ×3 (06:19→21:00)
--- NOTE | 2022-08-23 07:40 | PM.IMPN ---
Progress Note: A&P Assessment and Plan (1) Osteomyelitis: Code(s): M86.9 - Osteomyelitis, unspecified Status: Acute Assessment and Plan: CT with ulcer plantar to cuboid with osteomyelitis and pathologic fracture of cuboid with broken screw. Gas in calcaneus and talus, consistent with osteomyelitis. Continues to improve. Will monitor. -Continue cefepime, metronidazole and vancomycin - adjusted for creatinine clearance 23 -Orthopedic Surgery Consulted -Wound Nurse Consulted (2) Positive blood culture: Code(s): R78.81 - Bacteremia Status: Acute Assessment and Plan: 2/2 blood cultures with gram negative bacilli. Will continue cefepime, vancomycin and metronidazole for now. Repeat blood cultures pending. (3) Diabetic foot ulcer: Qualifiers: Diabetes mellitus type: type 1 Diabetic foot ulcer location: midfoot Laterality: left Non-pressure ulcer stage: with bone involvement without evidence of necrosis Qualified Code(s): E10.621 - Type 1 diabetes mellitus with foot ulcer; L97.426 - Non-pressure chronic ulcer of left heel and midfoot with bone involvement without evidence of necrosis Code(s): E11.621 - Type 2 diabetes mellitus with foot ulcer; L97.509 - Non-pressure chronic ulcer of other part of unspecified foot with unspecified severity Status: Acute Assessment and Plan: See plan as noted above. (4) CHF (congestive heart failure): Code(s): I50.9 - Heart failure, unspecified Status: Acute Assessment and Plan: Compensated. On BB, arb and furosemide. Continue. Will monitor. (5) Anemia: Code(s): D64.9 - Anemia, unspecified Status: Acute Assessment and Plan: Preoperatively hemoglobin 11 and anemia has been worsening since surgery. Takes iron at home. Appears to be drifting down. Will monitor. -Continue ferrous sulfate 324 mg -Repeat H/H this evening (6) Chronic renal insufficiency, stage III (moderate): Code(s): N18.3 - Chronic kidney disease, stage 3 (moderate) Status: Acute Assessment and Plan: Baseline creatinine 1.4-1.5. Creatinine increasing. May be due to vancomycin or furosemide. -Avoid nephrotoxic agents -Renally dose medications -Hold furosemide & losartan (7) Paroxysmal atrial fibrillation: Code(s): I48.0 - Paroxysmal atrial fibrillation Status: Acute Assessment and Plan: Rate controlled on metoprolol and anticoagulation with dabigatran. Continue. (8) Hypertension associated with diabetes: Code(s): E11.59 - Type 2 diabetes mellitus with other circulatory complications; I10 - Essential (primary) hypertension Status: Acute Assessment and Plan: On metoprolol and losartan. Continue. (9) Hyperlipidemia associated with type 2 diabetes mellitus: Code(s): E11.69 - Type 2 diabetes mellitus with other specified complication; E78.5 - Hyperlipidemia, unspecified Status: Acute Assessment and Plan: Needs to be on high intensity statin. Unclear if there is an allergy to atorvastatin or rosuvastatin. Will continue simvastatin for now. Continue home fenofibrate. (10) Diabetes mellitus: Code(s): E11.9 - Type 2 diabetes mellitus without complications Status: Acute Assessment and Plan: Hemoglobin a1c 7.8. Takes dulaglutide and novolog at home. May bring dulaglutide as it is nonformulary. 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 Continue. (12) Hypothyroidism: Code(s): E03.9 - Hypothyroidism, unspecified Status: Acute Assessment and Plan: TSH 2.82. Euthyroid. -Levothyroxin
[2022-08-23 08:08] LABS: Anion Gap 14 mmol/L (8-16); Blood Urea Nitrogen 33 mg/dL (7-17); Calcium 8.6 mg/dL (8.4-10.2); Carbon Dioxide 25 mmol/L (22-30); Chloride 99 mmol/L (98-107); Estimated CRCL calculation 27 ml/min; Estimated Glomerular Filt Rate 30; Glucose 136 mg/dL (65-110); Potassium 3.1 mmol/L (3.4-5.0); Sodium 138 mmol/L (137-145)
[2022-08-23 08:15] LABS: Basophils Absolute Auto 0.1 K/mm3 (0.0-0.1); Basophils Percent Auto 0.5 % (0.2-1.2); Eosinophils Absolute Auto 0.4 K/mm3 (0-0.3); Eosinophils Percent Auto 2.9 % (0-4.4); Erythrocyte Sedimentation Rate > 140 mm/hr (0-20); Hematocrit 25.4 % (37.0-47.0); Hemoglobin 7.7 g/dL (12.0-15.0); Immature Granulocyte Absolute 0.17 K/mm3 (0.00-0.031); Immature Granulocyte Percent A 1.3 % (0-0.5); Lymphocytes Absolute Auto 0.74 K/mm3 (0.9-3.2); Lymphocytes Percent Auto 5.5 % (18.3-44.2); Mean Corpuscular HGB Conc 30.3 g/dl (32-36); Mean Corpuscular Volume 82.5 fl (80-100); Mean Platelet Volume 9.4 fl (7.4-10.4); Monocytes Absolute Auto 1.2 K/mm3 (0.1-0.6); Monocytes Percent Auto 8.9 % (2.6-8.5); Neutrophils Absolute Auto 10.9 K/mm3 (1.3-6.7); Neutrophils Percent Auto 80.9 % (45.5-73.1); Platelet Count Result 486 k/mm3 (150-375); Red Blood Count 3.08 M/mm3 (4.2-5.4); Red Cell Distribution Width 15.9 % (11.5-14.5); White Blood Count 13.5 K/mm3 (4.5-10.0)
[2022-08-23 08:38] LABS: Glucose Point of Care 103 mg/dl (65-105)
[2022-08-23] MEDS: METOPROLOL SUCCINATE EXT REL 100 MG TABCR PO (09:38)
[2022-08-23] MEDS: FENOFIBRATE,MICRONIZED 48 MG TABLET PO (09:38)
[2022-08-23] MEDS: ASPIRIN 81 MG ENTERIC TABLET PO (09:38)
[2022-08-23] MEDS: FUROSEMIDE 40 MG TABLET PO (09:38)
[2022-08-23] MEDS: CYANOCOBALAMIN 1,000 MCG TABLET 5000 MCG PO (09:38)
[2022-08-23] MEDS: LOSARTAN POTASSIUM 25 MG TABLET PO (09:38)
[2022-08-23] MEDS: CHOLECALCIFEROL 1,000 UNITS TABLET 5000 UNITS PO (09:38)
[2022-08-23] MEDS: FERROUS SULFATE 324 MG TABLET PO (09:38)
--- NOTE | 2022-08-23 10:09 | PM.PNORT ---
Progress Note: A&P Assessment and Plan (1) Diabetic foot ulcer: Qualifiers: Diabetes mellitus type: type 1 Diabetic foot ulcer location: midfoot Laterality: left Non-pressure ulcer stage: with bone involvement without evidence of necrosis Qualified Code(s): E10.621 - Type 1 diabetes mellitus with foot ulcer; L97.426 - Non-pressure chronic ulcer of left heel and midfoot with bone involvement without evidence of necrosis Code(s): E11.621 - Type 2 diabetes mellitus with foot ulcer; L97.509 - Non-pressure chronic ulcer of other part of unspecified foot with unspecified severity Status: Acute Assessment and Plan: Erythema and swelling left foot and ankle slightly improved this morning upon dressing change. Patient states feeling better overall. Will allow patient to mobilize in the room and shower. Continue with IV antibiotics. Continue with wound care and daily dressing changes. Will continue to observe. (2) Cellulitis of foot, left: Code(s): L03.116 - Cellulitis of left lower limb Status: Acute Subjective Subjective Date/Time Seen: 08/23/22 10:09 Principal diagnosis: Left diabetic foot ulcer with foot infection Interval history: patient states pain slightly improved today. No new complaints. Dressing change this morning. Feels like there is less swelling. Exam Const: General: comfortable and no acute distress Neck: Neck: supple and no JVD Resp: Effort & Inspection: normal respiratory effort Cardio: Rate: regular rate Rhythm: regular rhythm Neuro: Cranial nerves: Yes Normal hearing present Extrem: Right upper extremity: normal to inspection Left upper extremity: normal to inspection Right lower extremity: foot Details: motor-sensory exam Details: two point discrimination abnormal Location: in all toes and light-touch abnormal Location: in all toes Left lower extremity: foot Details: toes with normal ROM, no edema, vascular exam Details: dorsalis pedis pulse present and abnormal capillary refill Location: of all toes and motor-sensory exam two point discrimination abnormal in all toes and light-touch abnormal in all toes; no unusual warmth and no ecchymosis Other: Wound on the plantar aspect of the left foot with graft, incorporating well. Bone palpable but improved. No signs of infection of ulcer. Ulcer dimensions 1 x 1.1 cm and 0.9 cm depth to bone. Surrounding tissue viable. Callus/pressure formation on the plantar aspect of the 4th metatarsal head unchanged. Incision lateral foot, well approximated. Sutures removed. new redness and swelling over the anterior and medial ankle, minimal fluctuance. Redness partially resolves with elevation. Tender to palpation. Psych: Mental Status: mental status grossly normal Affect: normal affect Objective Data Vital Signs Vital Signs: Vital Signs - 24 hr 08/22/22 14:01 08/22/22 18:31 08/22/22 20:00 Temperature 98.1 F 96.8 F L Pulse Rate 84 81 81 Respiratory Rate 18 16 16 Blood Pressure 165/69 H 152/70 H Pulse Oximetry 97 99 99 Oxygen Delivery Room Air 08/22/22 20:00 08/22/22 23:29 08/23/22 03:44 Temperature 98.3 F 98.6 F 98.7 F Pulse Rate 71 73 84 Respiratory Rate 18 18 18 Blood Pressure 128/48 L 144/55 H 158/53 H Pulse Oximetry 98 97 98 Oxygen Delivery 08/23/22 09:36 08/23/22 09:38 08/23/22 09:35 Temperature 98.4 F Pulse Rate 74 74 Respiratory Rate 16 Blood Pressure 150/54 H Pulse Oximetry 100 Oxygen Delivery Room Air Intake/Output Intake/Output: Intake & Output 08/20/22 08/21/22 08/22/22 08/23/22 23:59 23:59 23:59 23:59 Intake Total 1280 2690 1150 Output Total 250 1250 2400 Balance 1030 1440 -1250 Meds/Results Medications: Active Medications Generic Name Dose Route Start Last Admin Trade Name Freq PRN Reason Stop Dose Admin Acetaminophen 650 mg 08/22/22 14:30 08/22/22 15:37 Acetaminophen 325 Mg Tablet PO 650 mg Q6H PRN Administration Mil
[2022-08-23 12:09] LABS: Glucose Point of Care 126 mg/dl (65-105)
--- NOTE | 2022-08-23 14:25 | PC.NURSE ---
Clarification per Dr Braga: Pt should wear her fracture boot that she has in her room when ambulating in the room.
[2022-08-23 17:15] LABS: Glucose Point of Care 192 mg/dl (65-105)
[2022-08-23] MEDS: INSULIN GLARGINE (*BKC) 100 UNITS/ML 96 UNITS SUB-Q (21:00)
[2022-08-23] MEDS: SIMVASTATIN 20 MG TABLET PO (21:00)
[2022-08-23] MEDS: DABIGATRAN ETEXILATE 150 MG CAPSULE PO (21:00)
[2022-08-24] VITALS (7 sets, daily range): BP systolic 145–166; BP diastolic 56–68; PULSE 69–86; RESP 17–20; TEMP 36.4–36.8; O2SAT 96–100
[2022-08-24] MEDS: metroNIDAZOLE 500 MG/ISO 100ML 500 MG/100 ML BAG 100 MG IVPB ×3 (05:36→21:15)
[2022-08-24] MEDS: LEVOTHYROXINE SODIUM 50 MCG TABLET PO (05:36)
[2022-08-24 05:55] LABS: Basophils Absolute Auto 0.1 K/mm3 (0.0-0.1); Basophils Percent Auto 0.4 % (0.2-1.2); Eosinophils Absolute Auto 0.4 K/mm3 (0-0.3); Eosinophils Percent Auto 2.5 % (0-4.4); Hematocrit 28.6 % (37.0-47.0); Hemoglobin 8.7 g/dL (12.0-15.0); Immature Granulocyte Absolute 0.22 K/mm3 (0.00-0.031); Immature Granulocyte Percent A 1.4 % (0-0.5); Lymphocytes Absolute Auto 0.95 K/mm3 (0.9-3.2); Mean Corpuscular HGB Conc 30.4 g/dl (32-36); Mean Corpuscular Hemoglobin 24.7 pg (26-34); Mean Corpuscular Volume 81.3 fl (80-100); Mean Platelet Volume 9.3 fl (7.4-10.4); Monocytes Absolute Auto 1.3 K/mm3 (0.1-0.6); Monocytes Percent Auto 8.2 % (2.6-8.5); Neutrophils Percent Auto 81.5 % (45.5-73.1); Platelet Count Result 561 k/mm3 (150-375); Red Blood Count 3.52 M/mm3 (4.2-5.4); Red Cell Distribution Width 15.9 % (11.5-14.5); White Blood Count 15.9 K/mm3 (4.5-10.0)
[2022-08-24 06:32] LABS: Anion Gap 22 mmol/L (8-16); Blood Urea Nitrogen 26 mg/dL (7-17); Calcium 8.2 mg/dL (8.4-10.2); Carbon Dioxide 19 mmol/L (22-30); Chloride 98 mmol/L (98-107); Estimated CRCL calculation 55 ml/min; Estimated Glomerular Filt Rate > 60; Glucose 62 mg/dL (65-110); Potassium 3.1 mmol/L (3.4-5.0); Sodium 139 mmol/L (137-145)
[2022-08-24 06:56] LABS: Erythrocyte Sedimentation Rate > 140 mm/hr (0-20)
--- NOTE | 2022-08-24 08:10 | PM.IMPN ---
Progress Note: A&P Assessment and Plan (1) Osteomyelitis: Code(s): M86.9 - Osteomyelitis, unspecified Status: Acute Assessment and Plan: CT with ulcer plantar to cuboid with osteomyelitis and pathologic fracture of cuboid with broken screw. Gas in calcaneus and talus, consistent with osteomyelitis. Stable. Will monitor. -Continue cefepime, metronidazole and vancomycin - adjusted for creatinine clearance 23 -Appreciate Orthopedic Surgery recommendations -Wound Nurse Consulted (2) Positive blood culture: Code(s): R78.81 - Bacteremia Status: Acute Assessment and Plan: 2/2 blood cultures and the wound culture growing Enterobacter cancerogenous sensitive to cefepime. Repeat blood cultures with no growth so far -Continue cefepime (3) Diabetic foot ulcer: Qualifiers: Diabetes mellitus type: type 1 Diabetic foot ulcer location: midfoot Laterality: left Non-pressure ulcer stage: with bone involvement without evidence of necrosis Qualified Code(s): E10.621 - Type 1 diabetes mellitus with foot ulcer; L97.426 - Non-pressure chronic ulcer of left heel and midfoot with bone involvement without evidence of necrosis Code(s): E11.621 - Type 2 diabetes mellitus with foot ulcer; L97.509 - Non-pressure chronic ulcer of other part of unspecified foot with unspecified severity Status: Acute Assessment and Plan: See plan as noted above. (4) CHF (congestive heart failure): Code(s): I50.9 - Heart failure, unspecified Status: Acute Assessment and Plan: Compensated. On BB, arb and furosemide. Continue. Will monitor. (5) Anemia: Code(s): D64.9 - Anemia, unspecified Status: Acute Assessment and Plan: Preoperatively hemoglobin 11 and anemia has been worsening since surgery. Takes iron at home. Stable. Will monitor. -Continue ferrous sulfate 324 mg (6) Chronic renal insufficiency, stage III (moderate): Code(s): N18.3 - Chronic kidney disease, stage 3 (moderate) Status: Acute Assessment and Plan: Baseline creatinine 1.4-1.5. Creatinine increasing. May be due to vancomycin or furosemide. -Avoid nephrotoxic agents -Renally dose medications -Hold furosemide & losartan (7) Paroxysmal atrial fibrillation: Code(s): I48.0 - Paroxysmal atrial fibrillation Status: Acute Assessment and Plan: Rate controlled on metoprolol and anticoagulation with dabigatran. Continue. (8) Hypertension associated with diabetes: Code(s): E11.59 - Type 2 diabetes mellitus with other circulatory complications; I10 - Essential (primary) hypertension Status: Acute Assessment and Plan: On metoprolol and losartan. Continue. (9) Hyperlipidemia associated with type 2 diabetes mellitus: Code(s): E11.69 - Type 2 diabetes mellitus with other specified complication; E78.5 - Hyperlipidemia, unspecified Status: Acute Assessment and Plan: Needs to be on high intensity statin. Unclear if there is an allergy to atorvastatin or rosuvastatin. Will continue simvastatin for now. Continue home fenofibrate. (10) Diabetes mellitus: Code(s): E11.9 - Type 2 diabetes mellitus without complications Status: Acute Assessment and Plan: Hemoglobin a1c 7.8. Takes dulaglutide and novolog at home. May bring dulaglutide as it is nonformulary. 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 Continue. (12) Hypothyroidism: Code(s): E03.9 - Hypothyroidism, unspecified Status: Acute Assessment and Plan: TSH 2.82. Euthyroid. -Levothyroxine 50 mcg daily
[2022-08-24 08:42] LABS: Glucose Point of Care 72 mg/dl (65-105)
[2022-08-24] MEDS: CYANOCOBALAMIN 1,000 MCG TABLET 5000 MCG PO (09:02)
[2022-08-24] MEDS: ASPIRIN 81 MG ENTERIC TABLET PO (09:02)
[2022-08-24] MEDS: FENOFIBRATE,MICRONIZED 48 MG TABLET PO (09:02)
[2022-08-24] MEDS: CHOLECALCIFEROL 1,000 UNITS TABLET 5000 UNITS PO (09:02)
[2022-08-24] MEDS: FERROUS SULFATE 324 MG TABLET PO (09:02)
[2022-08-24] MEDS: METOPROLOL SUCCINATE EXT REL 100 MG TABCR PO (09:02)
[2022-08-24] MEDS: POTASSIUM CHLORIDE 20 MEQ PACKET (FOR LIQUID) 40 MEQ PO ×2 (09:03→16:56)
--- NOTE | 2022-08-24 11:53 | PM.PNORT ---
Progress Note: A&P Assessment and Plan (1) Diabetic foot ulcer: Qualifiers: Diabetes mellitus type: type 1 Diabetic foot ulcer location: midfoot Laterality: left Non-pressure ulcer stage: with bone involvement without evidence of necrosis Qualified Code(s): E10.621 - Type 1 diabetes mellitus with foot ulcer; L97.426 - Non-pressure chronic ulcer of left heel and midfoot with bone involvement without evidence of necrosis Code(s): E11.621 - Type 2 diabetes mellitus with foot ulcer; L97.509 - Non-pressure chronic ulcer of other part of unspecified foot with unspecified severity Status: Acute Assessment and Plan: History, exam, radiographs and CT scan results reviewed. Mild improvement in erythema and swelling left foot and ankle. Continue pain control. Continue IV antibiotics. Continue daily dressing changes. Elevate. Preliminary wound culture results reveal Enterobacter cancerogenous. Will likely require long term care pharmacist IV antibiotics with PICC line. Appreciate medicine team input. Will continue to follow. (2) Cellulitis of foot, left: Code(s): L03.116 - Cellulitis of left lower limb Status: Acute Subjective Subjective Date/Time Seen: 08/24/22 11:53 Principal diagnosis: Left diabetic foot ulcer with foot infection Interval history: Pain improving. No new complaints. Anxious to know plans moving forward. Hopeful for discharge soon. Review of Systems Constitutional: Constitutional: Reports no additional constitutional complaints, Denies chills, Denies fatigue, Denies fever(s), Denies headache(s) and Denies weakness Eyes: Eyes: Denies change in vision ENT: Reports Normal hearing present and Denies headache(s) Cardiovascular: Cardiovascular: Denies chest pain and Denies dyspnea Respiratory: Respiratory: Denies cough, Denies dyspnea and Denies wheezing Gastrointestinal: Gastrointestinal: Denies constipation, Denies diarrhea, Denies nausea and Denies vomiting Genitourinary: Genitourinary: Denies hematuria, Denies dysuria and Denies urinary urgency Musculoskeletal: Musculoskeletal: Reports as per HPI, Denies numbness and Denies tingling Integumentary/Breasts: Skin/Breast: Reports as per HPI Neurologic: Reports as per HPI, Reports Normal hearing present, Denies headache(s), Denies numbness, Denies tingling and Denies weakness Psychiatric: Psychiatric: Reports no additional psychiatric complaints Endocrine: Endocrine: Reports no additional endocrine complaints and Denies fatigue Hematologic/Lymphatic: Hematologic/Lymphatic: Reports no additional hematologic/lymphatic complaints Allergic/Immunologic: Allergic/Immunologic: Reports no additional allergic/immunologic complaints and Denies wheezing Exam Const: General: comfortable and no acute distress Neck: Neck: supple and no JVD Resp: Effort & Inspection: normal respiratory effort Cardio: Rate: regular rate Rhythm: regular rhythm Neuro: Cranial nerves: Yes Normal hearing present Extrem: Right upper extremity: normal to inspection Left upper extremity: normal to inspection Right lower extremity: foot Details: motor-sensory exam Details: two point discrimination abnormal Location: in all toes and light-touch abnormal Location: in all toes Left lower extremity: foot Details: toes with normal ROM, no edema, vascular exam Details: dorsalis pedis pulse present and abnormal capillary refill Location: of all toes and motor-sensory exam two point discrimination abnormal in all toes and light-touch abnormal in all toes; no unusual warmth and no ecchymosis Other: Wound on the plantar aspect of the left foot with graft, incorporating well. Bone palpable but improved. No signs of infection of ulcer. Ulcer dimensions 1 x 1.1 cm and 0.9 cm depth to bone. Surrounding tissue viable. Callus/pressure formation on the plantar aspect of the 4th metatarsal head unchanged. Incision lateral foot, well approximated. Sutures removed. Improvement in re
[2022-08-24 12:16] LABS: Glucose Point of Care 101 mg/dl (65-105)
[2022-08-24 14:44] LABS: Vancomycin Trough 15.4 ug/mL (10.0-20.0)
[2022-08-24 17:24] LABS: Glucose Point of Care 168 mg/dl (65-105)
[2022-08-24 20:42] LABS: Glucose Point of Care 197 mg/dl (65-105)
[2022-08-24] MEDS: INSULIN GLARGINE (*BKC) 100 UNITS/ML 47 UNITS SUB-Q (21:05)
[2022-08-24] MEDS: SIMVASTATIN 20 MG TABLET PO (21:15)
[2022-08-24] MEDS: DABIGATRAN ETEXILATE 150 MG CAPSULE PO (21:15)
[2022-08-25] VITALS (19 sets, daily range): BP systolic 135–183; BP diastolic 53–81; PULSE 70–96; RESP 15–24; TEMP 36.2–37.3; O2SAT 94–100
[2022-08-25] MEDS: metroNIDAZOLE 500 MG/ISO 100ML 500 MG/100 ML BAG 100 MG IVPB (05:23)
[2022-08-25] MEDS: LEVOTHYROXINE SODIUM 50 MCG TABLET PO (05:23)
[2022-08-25 06:21] LABS: Basophils Absolute Auto 0.1 K/mm3 (0.0-0.1); Basophils Percent Auto 0.5 % (0.2-1.2); Eosinophils Absolute Auto 0.5 K/mm3 (0-0.3); Eosinophils Percent Auto 3.5 % (0-4.4); Hematocrit 27.4 % (37.0-47.0); Hemoglobin 8.3 g/dL (12.0-15.0); Immature Granulocyte Absolute 0.17 K/mm3 (0.00-0.031); Immature Granulocyte Percent A 1.2 % (0-0.5); Lymphocytes Percent Auto 6.8 % (18.3-44.2); Mean Corpuscular HGB Conc 30.3 g/dl (32-36); Mean Corpuscular Hemoglobin 24.9 pg (26-34); Mean Platelet Volume 9.3 fl (7.4-10.4); Monocytes Absolute Auto 1.1 K/mm3 (0.1-0.6); Monocytes Percent Auto 7.4 % (2.6-8.5); Neutrophils Absolute Auto 11.9 K/mm3 (1.3-6.7); Neutrophils Percent Auto 80.6 % (45.5-73.1); Platelet Count Result 570 k/mm3 (150-375); Red Blood Count 3.34 M/mm3 (4.2-5.4); White Blood Count 14.8 K/mm3 (4.5-10.0)
[2022-08-25 06:33] LABS: Anion Gap 11 mmol/L (8-16); Blood Urea Nitrogen 27 mg/dL (7-17); Calcium 8.9 mg/dL (8.4-10.2); Carbon Dioxide 29 mmol/L (22-30); Chloride 98 mmol/L (98-107); Estimated CRCL calculation 32 ml/min; Estimated Glomerular Filt Rate 37; Glucose 122 mg/dL (65-110); Potassium 3.7 mmol/L (3.4-5.0); Sodium 138 mmol/L (137-145)
--- NOTE | 2022-08-25 08:05 | PM.PNORT ---
Progress Note: A&P Assessment and Plan (1) Diabetic foot ulcer: Qualifiers: Diabetes mellitus type: type 1 Diabetic foot ulcer location: midfoot Laterality: left Non-pressure ulcer stage: with bone involvement without evidence of necrosis Qualified Code(s): E10.621 - Type 1 diabetes mellitus with foot ulcer; L97.426 - Non-pressure chronic ulcer of left heel and midfoot with bone involvement without evidence of necrosis Code(s): E11.621 - Type 2 diabetes mellitus with foot ulcer; L97.509 - Non-pressure chronic ulcer of other part of unspecified foot with unspecified severity Status: Acute Assessment and Plan: Afebrile, white count gradually improving. Mild improvement in erythema and swelling left foot and ankle. Continue pain control. Continue IV antibiotics. Continue daily dressing changes. Elevate. Wound culture results reveal Enterobacter cancerogenous. Will likely require intermediate manager IV antibiotics with PICC line. Appreciate medicine team input. Still with significant drainage from the plantar ulcer. Discussed debridement and irrigation with the patient. Risks, benefits and alternatives reviewed. Questions answered. (2) Cellulitis of foot, left: Code(s): L03.116 - Cellulitis of left lower limb Status: Acute Subjective Subjective Date/Time Seen: 08/25/22 08:05 Principal diagnosis: Left diabetic foot ulcer with foot infection Interval history: Pain improving. No new complaints. feels like swelling and redness have improved. Exam Const: General: comfortable and no acute distress Neck: Neck: supple and no JVD Resp: Effort & Inspection: normal respiratory effort Cardio: Rate: regular rate Rhythm: regular rhythm Neuro: Cranial nerves: Yes Normal hearing present Extrem: Right upper extremity: normal to inspection Left upper extremity: normal to inspection Right lower extremity: foot Details: motor-sensory exam Details: two point discrimination abnormal Location: in all toes and light-touch abnormal Location: in all toes Left lower extremity: foot Details: toes with normal ROM, no edema, vascular exam Details: dorsalis pedis pulse present and abnormal capillary refill Location: of all toes and motor-sensory exam two point discrimination abnormal in all toes and light-touch abnormal in all toes; no unusual warmth and no ecchymosis Other: Wound on the plantar aspect of the left foot with graft, incorporating well. Bone palpable but improved. No signs of infection of ulcer. Ulcer dimensions 1 x 1.1 cm and 0.9 cm depth to bone. Surrounding tissue viable. Callus/pressure formation on the plantar aspect of the 4th metatarsal head unchanged. Incision lateral foot, well healed Improvement in redness/swelling over the anterior and medial ankle, minimal fluctuance. Tenderness to palpation. persistent Moderate serosanguineous, purulent drainage. Psych: Mental Status: mental status grossly normal Affect: normal affect Objective Data Vital Signs Vital Signs: Vital Signs - 24 hr 08/24/22 09:02 08/24/22 12:00 08/24/22 16:10 Temperature 97.9 F 98.3 F Pulse Rate 86 80 84 Respiratory Rate 18 20 Blood Pressure 149/68 H 145/63 H Pulse Oximetry 97 99 Oxygen Delivery 08/24/22 20:00 08/24/22 20:00 08/24/22 23:40 Temperature 97.8 F 98.3 F Pulse Rate 69 83 Respiratory Rate 17 18 Blood Pressure 155/66 H 166/67 H Pulse Oximetry 100 99 Oxygen Delivery Room Air 08/25/22 03:52 Temperature 98.5 F Pulse Rate 70 Respiratory Rate 18 Blood Pressure 160/68 H Pulse Oximetry 98 Oxygen Delivery Intake/Output Intake/Output: Intake & Output 08/22/22 08/23/22 08/24/22 08/25/22 23:59 23:59 23:59 23:59 Intake Total 2690 2940 2370 350 Output Total 1250 4500 1275 1300 Balance 1440 -1560 1095 -950 Meds/Results Medications: Active Medications Generic Name Dose Route Start Last Admin Trade Name Freq PRN Reason Stop Dose Admin Acetaminophen 650 mg 1
[2022-08-25 08:14] LABS: Glucose Point of Care 118 mg/dl (65-105)
[2022-08-25] MEDS: METOPROLOL SUCCINATE EXT REL 100 MG TABCR PO (08:30)
[2022-08-25] MEDS: FERROUS SULFATE 324 MG TABLET PO (08:30)
[2022-08-25] MEDS: FENOFIBRATE,MICRONIZED 48 MG TABLET PO (08:30)
[2022-08-25] MEDS: CYANOCOBALAMIN 1,000 MCG TABLET 5000 MCG PO (08:30)
[2022-08-25] MEDS: CHOLECALCIFEROL 1,000 UNITS TABLET 5000 UNITS PO (08:30)
[2022-08-25 08:36] LABS: Erythrocyte Sedimentation Rate > 140 mm/hr (0-20)
--- NOTE | 2022-08-25 09:40 | WPDHPUPDATE1 ---
History and Physical Update Update Date/Time: 08/25/22 09:40 Discussed nonoperative and operative treatment options with the patient. Risks and benefits of each as well as alternatives were reviewed. All of the patient's questions were answered. The risks of surgery reviewed including but not limited to: Neurovascular damage, wound complication, infection, blood clot, pulmonary embolus, stroke, myocardial infarction, and anesthetic risks up to and including . Continued pain and possible dysfunction were explained. Specific risks of the procedure including later recurrence of deformity. No guarantees were offered. If hardware used, discussed risk of failure/ breakage and possible need for removal. If complications occur, the patient understands the need for further treatment, possible further surgery. Patient verbalizes understanding and wishes to proceed. PLAN: Irrigation and debridement left diabetic foot ulcer. History and Physical has been reviewed, including an updated exam of the patient. There are NO changes in the patient's condition. Risks, benefits, and alternatives have been discussed and questions answered. Patient agrees to proceed with procedure.
--- NOTE | 2022-08-25 09:49 | WPDANESEPPF ---
Anes - Initial Pre Proc Eval Procedure: Operation Date: 08/25/22 10:15 Proposed Procedures p Left Foot Washout - Hugh Braga MD Date/Time: 08/25/22 09:49 Surgeon: Eugenio Kramer MD Pre Op Diagnosis: Cellulitis/ Infected Foot Ulcer Patient Data Age: 72 Gender: F Height: 1.57 m Weight: 78.7 kg Last Vital Signs Temp 36.2 C L 08/25/22 09:35 Pulse 90 08/25/22 09:35 Resp 16 08/25/22 09:35 BP 168/72 H 08/25/22 09:35 Pulse Ox 100 08/25/22 09:35 O2 Del Method Room Air 08/25/22 09:35 Allergies Allergy/AdvReac Type Severity Reaction Status Date / Time apixaban Allergy Unknown Rash Verified 08/21/22 10:34 canagliflozin Allergy Unknown Other Verified 08/21/22 10:34 pioglitazone Allergy Unknown Other Verified 08/21/22 10:34 Low Fat Milk Allergy Unknown Other Uncoded 07/23/22 09:54 Home Medications Medication Instructions Recorded Confirmed Type aspirin 81 mg tablet,delayed 81 mg PO DAILY 10/10/19 08/21/22 History release (Adult Low Dose Aspirin) cholecalciferol (vitamin D3) 125 5,000 unit PO DAILY 10/10/19 08/21/22 History mcg (5,000 unit) capsule blood-glucose meter (Accu-Chek #1 ea 05/26/21 08/21/22 Rx Cassandra Plus Meter) lancets 32 gauge #300 ea 05/26/21 08/21/22 Rx blood sugar diagnostic (Accu-Chek #300 ea 09/23/21 08/21/22 Rx Cassandra Plus test strips) lancets (Accu-Chek Softclix #100 ea 10/07/21 08/21/22 Rx Lancets) ferrous sulfate 325 mg (65 mg 325 mg PO DAILY 12/29/21 08/21/22 History iron) tablet insulin aspart U-100 100 unit/mL See Protocol subcut TIDWM 12/29/21 08/21/22 History (3 mL) subcutaneous pen (Novolog Flexpen U-100 Insulin aspart) losartan 25 mg tablet 25 mg PO DAILY #90 tabs 06/10/22 08/21/22 Rx dulaglutide 1.5 mg/0.5 mL 1.5 mg (0.5 mL) subcut WEEKLY #2 mL 06/18/22 08/21/22 Rx subcutaneous pen injector (Trulicity) fluticasone propionate 50 1 spray intranasal DAILY PRN 07/17/22 08/21/22 History mcg/actuation nasal Allergy Symptoms spray,suspension cephalexin 500 mg capsule 500 mg PO Q12H 10 days #20 caps 08/18/22 08/21/22 Rx cyanocobalamin (vitamin B-12) 5,000 mcg PO DAILY 08/21/22 08/21/22 History 5,000 mcg sublingual tablet (Vitamin B-12) dabigatran etexilate 150 mg 150 mg PO QHS 08/21/22 08/21/22 History capsule (Pradaxa) fenofibrate nanocrystallized 48 mg 48 mg PO DAILY 08/21/22 08/21/22 History tablet furosemide 40 mg tablet 40 mg PO DAILY 08/21/22 08/21/22 History insulin glargine 100 unit/mL (3 96 unit subcut QHS 08/21/22 08/21/22 History mL) subcutaneous pen (Lantus Solostar U-100 Insulin) levothyroxine 50 mcg tablet 50 mcg PO DAILY 08/21/22 08/21/22 History metoprolol succinate 100 mg 100 mg PO DAILY 08/21/22 08/21/22 History tablet,extended release 24 hr simvastatin 20 mg tablet 20 mg PO QHS 08/21/22 08/21/22 History Laboratory Tests 08/24/22 08/24/22 08/24/22 12:13 14:15 17:12 WBC RBC Hgb Hct MCV MCH MCHC RDW Plt Count MPV Immature Gran % (Auto) Neut % (Auto) Lymph % (Auto) [place] % (Auto) Eos % (Auto) Baso % (Auto) Lymph # (Auto) [place] # (Auto) Eos # (Auto) Baso # (Auto) Abs Immat Gran (auto) Absolute Neuts (auto) Absolute Nucleated RBC Nucleated RBC % ESR Sodium Potassium Chloride Carbon Dioxide Anion Gap BUN Creatinine Estim Creat Clear Calc Estimated GFR Glucose POC Capillary Glucose 101 mg/dl mg/dl 168 mg/dl H mg/dl (65-105) (65-105) Calcium Vancomycin Trough 15.4 ug/mL ug/mL (10.0-20.0) 08/24/22 08/25/22 1
[2022-08-25] MEDS: BUPIVACAINE/EPINEPHRINE 0.25% 50 ML VIAL INFILTRATE (10:25)
--- NOTE | 2022-08-25 10:33 | SUR.OPER ---
Esmark applied by surgeon, as a tourniquet, at 10:23. Removed by surgeon at 10:28
[2022-08-25] MEDS: LACTATED RINGERS 1,000 ML 30 ML IV CONT (10:54)
--- NOTE | 2022-08-25 11:08 | P.OP_ITS ---
Procedure Note - Detailed Date of Procedure 08/25/22 Pre-op Diagnosis Cellulitis/ Infected Foot Ulcer, osteomyelitis left foot Post-op Diagnosis Same Procedure Performed left foot excision of osteomyelitis, cuboid; excisional debridement of diabetic foot ulcer to muscle layer 1 x 1.5 cm. Surgeon Hugh Braga MD Anesthesia MAC Indications 72-year-old woman who is 1 month status post debridement of left diabetic foot ulcer, excision of osteo and graft placement. Was admitted 4 days ago with worsening swelling, redness of the left foot and ankle and drainage from the plantar ulcer. CT scan showed infection of the foot ulcer but no abscess. The redness has improved on IV antibiotics but swelling has increased and drainage has persisted. She presents now for operative treatment Having failed IV antibiotics and wound care. Findings Osteomyelitis involving most of the cuboid the anterior calcaneus and base of the 5th metatarsal. Soft tissue extension to the medial ankle and lateral ankle without evidence of abscess. Hardware placed previously communicating with the osteomyelitis. Description of Procedure Patient identified in the preoperative holding. Informed consent given. Operative extremity marked. Patient received intravenous antibiotics. Patient brought to the operating room where underwent IV sedation anesthetic by anesthesia team. Positioned supine on operating room table. Time-out performed confirming the patient, site of the surgery and the plan. left foot prepped draped usual sterile surgical fashion using a Betadine prep solution. 1 x 1.5 cm ulcer on the plantar aspect with surrounding callus formation and some devitalized tissue. Fifteen blade knife used to sharply excise skin, subcutaneous tissue and muscle from the ulcer. This was then thoroughly irr igated. We are able to close the skin with 0 Prolene interrupted suture. Oblique incision made over the lateral aspect just distal to the fibula with a 15 blade knife. Hemostasis controlled electrocautery. An Esmarch bandage had been wrapped at the ankle as a tourniquet but venous bleeding noted and the tourniquet was released after 5 minutes. Local anesthetic with 0.25% Marcaine with epinephrine. Dissection carried down to the cuboid which was noted to be infected. Rongeur used to remove the infected portion of the cuboid anterior calcaneus and metatarsal. Previous hardware which had been placed was encountered and removed as well. Similar incision made medially with a 15 blade knife. Hemostasis control electrocautery. Communication with the cuboid on the plantar aspect but no abscess noted. Thorough irrigation of the incisions and the space for the cuboid was. Incisions closed with 0 Prolene interrupted suture and packed with Betadine gauze. Sterile dressing applied. The patient was then taken to the recovery room in stable condition. All sponge, needle, instrument counts were correct at the end of the case. Estimated Blood Loss 20 Tourniquet Time 5 Urine Output 1,300 Drains No Packing Yes Pathology None sent Complications None Condition Stable Disposition PACU
[2022-08-25 11:26] LABS: Glucose Point of Care 80 mg/dl (65-105)
[2022-08-25 13:41] LABS: Glucose Point of Care 47 mg/dl (65-105)
[2022-08-25] MEDS: GLUCOSE ORAL GEL 15 GM OF GLUCSE IN 37.5 GM TUBE PO ×2 (13:43→14:03)
[2022-08-25 13:57] LABS: Glucose Point of Care 56 mg/dl (65-105)
[2022-08-25 14:25] LABS: Glucose Point of Care 70 mg/dl (65-105)
[2022-08-25] MEDS: ACETAMINOPHEN 325 MG TABLET 650 MG PO (16:35)
[2022-08-25 17:06] LABS: Glucose Point of Care 114 mg/dl (65-105)
--- NOTE | 2022-08-25 18:26 | PM.IMPN ---
Progress Note: A&P Assessment and Plan (1) Osteomyelitis: Code(s): M86.9 - Osteomyelitis, unspecified Status: Acute Assessment and Plan: CT with ulcer plantar to cuboid with osteomyelitis and pathologic fracture of cuboid with broken screw. Gas in calcaneus and talus, consistent with osteomyelitis. Stable. Will monitor. -Continue cefepime -Discontinue metronidazole and vancomycin -Signed paper for Care Coordination to order antibiotics - cefepime through October 01. -Appreciate Orthopedic Surgery recommendations -Wound Nurse Consulted (2) Positive blood culture: Code(s): R78.81 - Bacteremia Status: Acute Assessment and Plan: 2/2 blood cultures and the wound culture growing Enterobacter cancerogenous sensitive to cefepime. Repeat blood cultures with no growth so far -Continue cefepime (3) Diabetic foot ulcer: Qualifiers: Diabetes mellitus type: type 1 Diabetic foot ulcer location: midfoot Laterality: left Non-pressure ulcer stage: with bone involvement without evidence of necrosis Qualified Code(s): E10.621 - Type 1 diabetes mellitus with foot ulcer; L97.426 - Non-pressure chronic ulcer of left heel and midfoot with bone involvement without evidence of necrosis Code(s): E11.621 - Type 2 diabetes mellitus with foot ulcer; L97.509 - Non-pressure chronic ulcer of other part of unspecified foot with unspecified severity Status: Acute Assessment and Plan: See plan as noted above. (4) CHF (congestive heart failure): Code(s): I50.9 - Heart failure, unspecified Status: Acute Assessment and Plan: Compensated. On BB, arb and furosemide. Continue. Will monitor. (5) Anemia: Code(s): D64.9 - Anemia, unspecified Status: Acute Assessment and Plan: Preoperatively hemoglobin 11 and anemia has been worsening since surgery. Takes iron at home. Stable. Will monitor. -Continue ferrous sulfate 324 mg (6) Chronic renal insufficiency, stage III (moderate): Code(s): N18.3 - Chronic kidney disease, stage 3 (moderate) Status: Acute Assessment and Plan: Baseline creatinine 1.4-1.5. Creatinine stable. -Avoid nephrotoxic agents -Renally dose medications -Continue furosemide & losartan (7) Paroxysmal atrial fibrillation: Code(s): I48.0 - Paroxysmal atrial fibrillation Status: Acute Assessment and Plan: Rate controlled on metoprolol and anticoagulation with dabigatran. Continue. (8) Hypertension associated with diabetes: Code(s): E11.59 - Type 2 diabetes mellitus with other circulatory complications; I10 - Essential (primary) hypertension Status: Acute Assessment and Plan: On metoprolol and losartan. Continue. (9) Hyperlipidemia associated with type 2 diabetes mellitus: Code(s): E11.69 - Type 2 diabetes mellitus with other specified complication; E78.5 - Hyperlipidemia, unspecified Status: Acute Assessment and Plan: Needs to be on high intensity statin. Unclear if there is an allergy to atorvastatin or rosuvastatin. Will continue simvastatin for now. Continue home fenofibrate. (10) Diabetes mellitus: Code(s): E11.9 - Type 2 diabetes mellitus without complications Status: Acute Assessment and Plan: Hemoglobin a1c 7.8. Takes dulaglutide and novolog at home. May bring dulaglutide as it is nonformulary. 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 Continue. (12) Hypothyroidism: Code(s): E03.9 - Hypothyroidism, unspecified Status: Acute Assessment and Plan: TSH 2.82. Euthyroid. -Levothyro
[2022-08-25 20:38] LABS: Glucose Point of Care 192 mg/dl (65-105)
[2022-08-25] MEDS: INSULIN GLARGINE (*BKC) 100 UNITS/ML 47 UNITS SUB-Q (20:38)
[2022-08-25] MEDS: SIMVASTATIN 20 MG TABLET PO (20:40)
[2022-08-25] MEDS: DABIGATRAN ETEXILATE 150 MG CAPSULE PO (20:40)
[2022-08-26 02:52] VITALS: BP 154/67; PULSE 64; RESP 18; TEMP 36.6; O2SAT 100
[2022-08-26] MEDS: LEVOTHYROXINE SODIUM 50 MCG TABLET PO (05:37)
[2022-08-26 05:42] LABS: Basophils Absolute Auto 0.1 K/mm3 (0.0-0.1); Basophils Percent Auto 0.6 % (0.2-1.2); Eosinophils Absolute Auto 0.5 K/mm3 (0-0.3); Hematocrit 28.7 % (37.0-47.0); Hemoglobin 8.6 g/dL (12.0-15.0); Immature Granulocyte Absolute 0.17 K/mm3 (0.00-0.031); Immature Granulocyte Percent A 1.1 % (0-0.5); Lymphocytes Absolute Auto 0.93 K/mm3 (0.9-3.2); Lymphocytes Percent Auto 6.1 % (18.3-44.2); Mean Corpuscular Hemoglobin 24.9 pg (26-34); Mean Corpuscular Volume 83.2 fl (80-100); Mean Platelet Volume 9.1 fl (7.4-10.4); Monocytes Percent Auto 6.9 % (2.6-8.5); Neutrophils Absolute Auto 12.5 K/mm3 (1.3-6.7); Neutrophils Percent Auto 82.3 % (45.5-73.1); Platelet Count Result 576 k/mm3 (150-375); Red Blood Count 3.45 M/mm3 (4.2-5.4); Red Cell Distribution Width 15.9 % (11.5-14.5); White Blood Count 15.2 K/mm3 (4.5-10.0)
[2022-08-26 05:58] LABS: Anion Gap 6 mmol/L (8-16); Blood Urea Nitrogen 19 mg/dL (7-17); Calcium 8.9 mg/dL (8.4-10.2); Carbon Dioxide 32 mmol/L (22-30); Chloride 100 mmol/L (98-107); Estimated CRCL calculation 37 ml/min; Estimated Glomerular Filt Rate 44; Glucose 66 mg/dL (65-110); Potassium 3.5 mmol/L (3.4-5.0); Sodium 138 mmol/L (137-145)
[2022-08-26 06:33] LABS: Erythrocyte Sedimentation Rate > 140 mm/hr (0-20)
--- NOTE | 2022-08-26 07:52 | WPDANESPN ---
Anes - Prog Note Post-Op Date/Time: 08/26/22 07:52 Vital Signs: Last Vital Signs Temp 36.6 C 08/26/22 02:52 Pulse 64 08/26/22 02:52 Resp 18 08/26/22 02:52 BP 154/67 H 08/26/22 02:52 Pulse Ox 100 08/26/22 02:52 O2 Del Method Room Air 08/25/22 20:00 Pain Score (VAS): 0 I/O: Intake & Output 08/25/22 08/25/22 08/26/22 15:59 23:59 07:59 Intake Total 920 420 250 Output Total 1300 600 800 Balance -380 -180 -550 Laboratory Tests 08/26/22 05:13 08/26/22 05:13 08/25/22 08/25/22 08/25/22 05:20 08:06 11:24 WBC RBC Hgb Hct MCV MCH MCHC RDW Plt Count MPV Immature Gran % (Auto) Neut % (Auto) Lymph % (Auto) [place] % (Auto) Eos % (Auto) Baso % (Auto) Lymph # (Auto) [place] # (Auto) Eos # (Auto) Baso # (Auto) Abs Immat Gran (auto) Absolute Neuts (auto) Absolute Nucleated RBC Nucleated RBC % ESR > 140 H Sodium Potassium Chloride Carbon Dioxide Anion Gap BUN Creatinine Estim Creat Clear Calc Estimated GFR Glucose POC Capillary Glucose 118 H 80 Calcium 08/25/22 08/25/22 08/25/22 13:37 13:52 14:16 WBC RBC Hgb Hct MCV MCH MCHC RDW Plt Count MPV Immature Gran % (Auto) Neut % (Auto) Lymph % (Auto) [place] % (Auto) Eos % (Auto) Baso % (Auto) Lymph # (Auto) [place] # (Auto) Eos # (Auto) Baso # (Auto) Abs Immat Gran (auto) Absolute Neuts (auto) Absolute Nucleated RBC Nucleated RBC % ESR Sodium Potassium Chloride Carbon Dioxide Anion Gap BUN Creatinine Estim Creat Clear Calc Estimated GFR Glucose POC Capillary Glucose 47 L* 56 L* 70 Calcium 08/25/22 08/25/22 08/26/22 16:51 20:33 05:13 WBC 15.2 H RBC 3.45 L Hgb 8.6 L Hct 28.7 L MCV 83.2 MCH 24.9 L MCHC 30.0 L RDW 15.9 H Plt Count 576 H MPV 9.1 Immature Gran % (Auto) 1.1 H Neut % (Auto) 82.3 H Lymph % (Auto) 6.1 L [place] % (Auto) 6.9 Eos % (Auto) 3.0 Baso % (Auto) 0.6 Lymph # (Auto) 0.93 [place] # (Auto) 1.0 H Eos # (Auto) 0.5 H Baso # (Auto) 0.1 Abs Immat Gran (auto) 0.17 H Absolute Neuts (auto) 12.5 H Absolute Nucleated RBC 0.0 Nucleated RBC % 0.0 ESR > 140 H Sodium Potassium Chloride Carbon Dioxide Anion Gap BUN Creatinine Estim Creat Clear Calc Estimated GFR Glucose POC Capillary Glucose 114 H 192 H Calcium 08/26/22 05:13 WBC RBC Hgb Hct MCV MCH MCHC RDW Plt Count MPV Immature Gran % (Auto) Neut % (Auto) Lymph % (Auto) [place] % (Auto) Eos % (Auto) Baso % (Auto) Lymph # (Auto) [place] # (Auto) Eos # (Auto) Baso # (Auto) Abs Immat Gran (auto) Absolute Neuts (auto) Absolute Nucleated RBC Nucleated RBC % ESR Sodium 138 Potassium 3.5 Chloride 100 Carbon Dioxide 32 H Anion Gap 6 L BUN 19 H Creatinine 1.20 H Estim Creat Clear Calc 37 Estimated GFR 44 L Glucose 66 POC Capillary Glucose Calcium 8.9 Patient Feedback: Patient satisfied with anesthetic care.
--- NOTE | 2022-08-26 08:15 | PM.PNORT ---
Progress Note: A&P Assessment and Plan (1) Osteomyelitis of foot, left, acute: Code(s): M86.172 - Other acute osteomyelitis, left ankle and foot Status: Acute Assessment and Plan: surgical treatment in findings from yesterday reviewed with the patient. Osteomyelitis of the cuboid as well as the previous hardware that was present. Debrided in the operating room. Medial and lateral incisions which communicate with the plantar foot but no other evidence of abscess. Wound care team for assistance with dressing change. Plan for wound VAC dressing. Continue IV antibiotics. (2) Diabetic foot ulcer: Qualifiers: Diabetes mellitus type: type 1 Diabetic foot ulcer location: midfoot Laterality: left Non-pressure ulcer stage: with bone involvement without evidence of necrosis Qualified Code(s): E10.621 - Type 1 diabetes mellitus with foot ulcer; L97.426 - Non-pressure chronic ulcer of left heel and midfoot with bone involvement without evidence of necrosis Code(s): E11.621 - Type 2 diabetes mellitus with foot ulcer; L97.509 - Non-pressure chronic ulcer of other part of unspecified foot with unspecified severity Status: Acute Subjective Subjective Date/Time Seen: 08/26/22 08:15 Post Op day: 1 Principal diagnosis: Left foot osteomyelitis Interval history: patient awake, states pain better. No new complaints. Exam Const: General: comfortable and no acute distress Neck: Neck: supple and no JVD Resp: Effort & Inspection: normal respiratory effort Cardio: Rate: regular rate Rhythm: regular rhythm Neuro: Cranial nerves: Yes Normal hearing present Extrem: Right upper extremity: normal to inspection Left upper extremity: normal to inspection Right lower extremity: foot Details: motor-sensory exam Details: two point discrimination abnormal Location: in all toes and light-touch abnormal Location: in all toes Left lower extremity: foot Details: toes with normal ROM, no edema, vascular exam Details: dorsalis pedis pulse present and abnormal capillary refill Location: of all toes and motor-sensory exam two point discrimination abnormal in all toes and light-touch abnormal in all toes; no unusual warmth and no ecchymosis Other: Dressing removed left foot. Wound on the plantar aspect of the left foot Ulcer dimensions 1 x 1.1 cm and 3.5 cm depth to bone. Improvement in redness/swelling over the anterior and medial ankle, minimal fluctuance. Tenderness to palpation. No active drainage Psych: Mental Status: mental status grossly normal Affect: normal affect Objective Data Vital Signs Vital Signs: Vital Signs - 24 hr 08/25/22 08:30 08/25/22 09:35 08/25/22 10:54 Temperature 97.1 F L 99.1 F Pulse Rate 70 90 78 Respiratory Rate 16 24 H Blood Pressure 168/72 H 142/56 H Pulse Oximetry 100 98 Oxygen Delivery Room Air Room Air 08/25/22 11:10 08/25/22 11:25 08/25/22 11:40 Temperature Pulse Rate 73 76 96 Respiratory Rate 24 H 19 21 H Blood Pressure 137/59 L 135/61 149/59 H Pulse Oximetry 95 95 96 Oxygen Delivery Room Air Room Air Room Air 08/25/22 11:55 08/25/22 12:10 08/25/22 12:25 Temperature Pulse Rate 75 87 83 Respiratory Rate 19 19 15 Blood Pressure 149/53 H 145/72 H 166/70 H Pulse Oximetry 97 98 99 Oxygen Delivery Room Air Room Air Room Air 08/25/22 12:40 08/25/22 12:55 08/25/22 13:20 Temperature 97.8 F Pulse Rate 82 80 96 Respiratory Rate 17 19 16 Blood Pressure 153/81 H 183/69 H 140/68 Pulse Oximetry 99 99 100 Oxygen Delivery Room Air Room Air 08/25/22 13:35 08/25/22 14:05 08/25/22 15:05 Temperature 97.9 F 97.8 F 98.2 F Pulse Rate 90 89 91 Respiratory Rate 18 18 16 Blood Pressure 159/71 H 153/76 H 158/65 H Pulse Oximetry 96 94 100 Oxygen Delivery 08/25/22 18:56 08/25/22 20:00 08/25/22 20:00 Temperature 98.7 F 98.3 F Pulse Rate 71 80 Respiratory Rate 18 17 Blood Pressure 152/66 H 153/60 H Pulse Oximetry 99 100 Oxygen
[2022-08-26 08:41] LABS: Glucose Point of Care 65 mg/dl (65-105)
[2022-08-26 09:35] LABS: Glucose Point of Care 96 mg/dl (65-105)
[2022-08-26 09:41] VITALS: BP 136/67; PULSE 91; RESP 17; TEMP 36.5; O2SAT 97
[2022-08-26] MEDS: ASPIRIN 81 MG ENTERIC TABLET PO (09:43)
[2022-08-26] MEDS: CHOLECALCIFEROL 1,000 UNITS TABLET 5000 UNITS PO (09:43)
[2022-08-26 09:44] VITALS: PULSE 90
[2022-08-26] MEDS: FERROUS SULFATE 324 MG TABLET PO (09:44)
[2022-08-26] MEDS: METOPROLOL SUCCINATE EXT REL 100 MG TABCR PO (09:44)
[2022-08-26] MEDS: FUROSEMIDE 40 MG TABLET PO (09:44)
[2022-08-26] MEDS: SENNA/DOCUSATE SODIUM TABLET 2 TAB PO (09:44)
[2022-08-26] MEDS: CYANOCOBALAMIN 1,000 MCG TABLET 5000 MCG PO (09:44)
[2022-08-26] MEDS: FENOFIBRATE,MICRONIZED 48 MG TABLET PO (09:44)
[2022-08-26] MEDS: LOSARTAN POTASSIUM 25 MG TABLET PO (09:44)
[2022-08-26 10:30] VITALS: BP 150/62; PULSE 95; RESP 16; TEMP 36.9; O2SAT 100
[2022-08-26 12:03] LABS: Glucose Point of Care 105 mg/dl (65-105)
[2022-08-26] MEDS: LORATADINE 5 MG TABLET PO (12:22)
[2022-08-26] MEDS: BENZONATATE 100 MG CAPSULE PO (12:22)
--- NOTE | 2022-08-26 13:24 | PCNFU ---
Nutrition Follow-Up Complete: Increased protein energy needs related to wound healing as evidenced by consult, wound report Adequate protein energy intake, at least 75% meals and supplements Goal: patient has met meal intake with 80% average. continue supplement goal Kobe BID Pt current nutrition is Diabetic consistent carbohydrate diet. Last recorded weight is 78.7 kg. Bowel Motility: last BM 08/25 Labs Reviewed: hgb: 8.6, GFR: 44, BUN: 19, Cr: 1.2 Meds Noted:vitamin B12, Pradaxa, Tricor, ferrous sulfate, lasix, novolog, lantus, synthyroid, cozaar, toprol, zofran, miralax, zocor, vitamin D Skin: left foot diabetic foot ulcer Additional Notes: Patient states she is eating fine. No changes to wt, says her usual body wt is 171lbs, EMR wt: 78.7kg (173lbs). She did not know that kobe helps with wound healing, so she will drink kobe BID. Before she was just drinking it once a day. Monitor wound healing, intakes, supplement tolerance, labs Follow up in 7 days
--- NOTE | 2022-08-26 14:20 | PM.IMPN ---
Progress Note: A&P Assessment and Plan (1) Osteomyelitis: Code(s): M86.9 - Osteomyelitis, unspecified Status: Acute Assessment and Plan: CT with ulcer plantar to cuboid with osteomyelitis and pathologic fracture of cuboid with broken screw. Gas in calcaneus and talus, consistent with osteomyelitis. Stable. Will monitor. -Continue cefepime -Discontinue metronidazole and vancomycin -Signed paper for Care Coordination to order antibiotics - cefepime through October 01. -Appreciate Orthopedic Surgery recommendations -Wound Nurse Consulted 08/26/2022 interval history: patient is a 72-year-old female with history of diabetes last hemoglobin A1c 7.8, is found to have diabetic moved left ankle and foot patient was seen by orthopedic surgeon wound was debrided and suspicious osteomyelitis patient is being treated with Cefepime, and wound team will clean the wound and change the dressing, remains clinically stable will continue to monitor and further recommendation to follow (2) Positive blood culture: Code(s): R78.81 - Bacteremia Status: Acute Assessment and Plan: 2/2 blood cultures and the wound culture growing Enterobacter cancerogenous sensitive to cefepime. Repeat blood cultures with no growth so far -Continue cefepime (3) Diabetic foot ulcer: Qualifiers: Diabetes mellitus type: type 1 Diabetic foot ulcer location: midfoot Laterality: left Non-pressure ulcer stage: with bone involvement without evidence of necrosis Qualified Code(s): E10.621 - Type 1 diabetes mellitus with foot ulcer; L97.426 - Non-pressure chronic ulcer of left heel and midfoot with bone involvement without evidence of necrosis Code(s): E11.621 - Type 2 diabetes mellitus with foot ulcer; L97.509 - Non-pressure chronic ulcer of other part of unspecified foot with unspecified severity Status: Acute Assessment and Plan: See plan as noted above. (4) CHF (congestive heart failure): Code(s): I50.9 - Heart failure, unspecified Status: Acute Assessment and Plan: Compensated. On BB, arb and furosemide. Continue. Will monitor. (5) Anemia: Code(s): D64.9 - Anemia, unspecified Status: Acute Assessment and Plan: Preoperatively hemoglobin 11 and anemia has been worsening since surgery. Takes iron at home. Stable. Will monitor. -Continue ferrous sulfate 324 mg (6) Chronic renal insufficiency, stage III (moderate): Code(s): N18.3 - Chronic kidney disease, stage 3 (moderate) Status: Acute Assessment and Plan: Baseline creatinine 1.4-1.5. Creatinine stable. -Avoid nephrotoxic agents -Renally dose medications -Continue furosemide & losartan (7) Paroxysmal atrial fibrillation: Code(s): I48.0 - Paroxysmal atrial fibrillation Status: Acute Assessment and Plan: Rate controlled on metoprolol and anticoagulation with dabigatran. Continue. (8) Hypertension associated with diabetes: Code(s): E11.59 - Type 2 diabetes mellitus with other circulatory complications; I10 - Essential (primary) hypertension Status: Acute Assessment and Plan: On metoprolol and losartan. Continue. (9) Hyperlipidemia associated with type 2 diabetes mellitus: Code(s): E11.69 - Type 2 diabetes mellitus with other specified complication; E78.5 - Hyperlipidemia, unspecified Status: Acute Assessment and Plan: Needs to be on high intensity statin. Unclear if there is an allergy to atorvastatin or rosuvastatin. Will continue simvastatin for now. Continue home fenofibrate. (10) Diabetes mellitus: Code(s): E11.9 - Type 2 diabetes mellitus without complications Status: Acute Assessment and Plan: Hemoglobin a1c 7.8. Takes dulaglutide and novolog at home. May bring dulaglutide as it is nonformulary. -SSI -POC glucose
[2022-08-26 14:45] VITALS: BP 148/66; PULSE 89; RESP 22; TEMP 36.5; O2SAT 98
--- NOTE | 2022-08-26 14:55 | PC.NURSE ---
On 08/26/22, the student, [Zeenat Grey], provided care and completed [facility] documentation on this patient. I have reviewed the student's documentation and agree with the findings.
--- NOTE | 2022-08-26 14:57 | PCNSR ---
On 08/26/22, the student, Myles Fitzpatrick, provided care and [facility]. I have reviewed the student's documentation and agree with the findings.
[2022-08-26 17:09] LABS: Glucose Point of Care 105 mg/dl (65-105)
[2022-08-26 19:54] LABS: Glucose Point of Care 191 mg/dl (65-105)
[2022-08-26] MEDS: DABIGATRAN ETEXILATE 150 MG CAPSULE PO (20:37)
[2022-08-26] MEDS: SIMVASTATIN 20 MG TABLET PO (20:37)
[2022-08-26] MEDS: ACETAMINOPHEN 325 MG TABLET 650 MG PO (21:06)
[2022-08-26 21:23] VITALS: BP 139/60; PULSE 84; RESP 16; TEMP 36.4; O2SAT 99
[2022-08-27 00:14] VITALS: BP 102/74; PULSE 66; RESP 16; TEMP 36.5; O2SAT 100
[2022-08-27 05:21] LABS: Basophils Absolute Auto 0.1 K/mm3 (0.0-0.1); Basophils Percent Auto 0.8 % (0.2-1.2); Eosinophils Absolute Auto 0.5 K/mm3 (0-0.3); Eosinophils Percent Auto 4.1 % (0-4.4); Hemoglobin 8.2 g/dL (12.0-15.0); Immature Granulocyte Absolute 0.16 K/mm3 (0.00-0.031); Immature Granulocyte Percent A 1.3 % (0-0.5); Lymphocytes Absolute Auto 1.33 K/mm3 (0.9-3.2); Lymphocytes Percent Auto 10.7 % (18.3-44.2); Mean Corpuscular HGB Conc 30.4 g/dl (32-36); Mean Corpuscular Hemoglobin 24.6 pg (26-34); Mean Corpuscular Volume 80.8 fl (80-100); Monocytes Percent Auto 7.9 % (2.6-8.5); Neutrophils Absolute Auto 9.3 K/mm3 (1.3-6.7); Neutrophils Percent Auto 75.2 % (45.5-73.1); Platelet Count Result 511 k/mm3 (150-375); Red Blood Count 3.34 M/mm3 (4.2-5.4); Red Cell Distribution Width 15.9 % (11.5-14.5); White Blood Count 12.4 K/mm3 (4.5-10.0)
[2022-08-27 05:30] LABS: Anion Gap 9 mmol/L (8-16); Blood Urea Nitrogen 24 mg/dL (7-17); Calcium 8.9 mg/dL (8.4-10.2); Carbon Dioxide 30 mmol/L (22-30); Chloride 100 mmol/L (98-107); Estimated CRCL calculation 37 ml/min; Estimated Glomerular Filt Rate 44; Glucose 148 mg/dL (65-110); Potassium 3.6 mmol/L (3.4-5.0); Sodium 139 mmol/L (137-145)
[2022-08-27 06:30] LABS: Erythrocyte Sedimentation Rate > 140 mm/hr (0-20)
[2022-08-27] MEDS: LEVOTHYROXINE SODIUM 50 MCG TABLET PO (06:50)
[2022-08-27 08:00] VITALS: O2SAT 98
[2022-08-27] MEDS: LOSARTAN POTASSIUM 25 MG TABLET PO (08:38)
[2022-08-27] MEDS: FUROSEMIDE 40 MG TABLET PO (08:38)
[2022-08-27 08:39] VITALS: PULSE 76
[2022-08-27] MEDS: BENZONATATE 100 MG CAPSULE PO (08:39)
[2022-08-27] MEDS: FENOFIBRATE,MICRONIZED 48 MG TABLET PO (08:39)
[2022-08-27] MEDS: ASPIRIN 81 MG ENTERIC TABLET PO (08:39)
[2022-08-27] MEDS: SENNA/DOCUSATE SODIUM TABLET 2 TAB PO ×2 (08:39→16:38)
[2022-08-27] MEDS: LORATADINE 5 MG TABLET PO (08:39)
[2022-08-27] MEDS: METOPROLOL SUCCINATE EXT REL 100 MG TABCR PO (08:39)
[2022-08-27] MEDS: CYANOCOBALAMIN 1,000 MCG TABLET 5000 MCG PO (08:39)
[2022-08-27] MEDS: FERROUS SULFATE 324 MG TABLET PO (08:40)
[2022-08-27] MEDS: CHOLECALCIFEROL 1,000 UNITS TABLET 5000 UNITS PO (08:40)
[2022-08-27] MEDS: polyethylene glycoL 3350 17 GM POWD.PACK PO (08:40)
[2022-08-27 08:55] LABS: Glucose Point of Care 138 mg/dl (65-105)
[2022-08-27] MEDS: INSULIN GLARGINE (*BKC) 100 UNITS/ML 47 UNITS SUB-Q ×2 (09:00→20:24)
[2022-08-27 12:22] LABS: Glucose Point of Care 185 mg/dl (65-105)
--- NOTE | 2022-08-27 12:55 | PM.PNORT ---
Progress Note: A&P Assessment and Plan (1) Osteomyelitis of foot, left, acute: Code(s): M86.172 - Other acute osteomyelitis, left ankle and foot Status: Acute Assessment and Plan: POD #2 Osteomyelitis of the cuboid as well as the previous hardware that was present. Debridement performed by Dr. Braga in the OR. Medial and lateral incisions which communicate with the plantar foot but no other evidence of abscess. Wound VAC in place. Some drainage/malfunction. Wound nurses notified. Plan for adjustments/possible change. Continue IV antibiotics. Difficulty with discharge to SNF due to BID requirement for IV antibiotics. Additional oral and IV antibiotic options with risks for the patient. Ceftriaxone IV Q24 hours is an option but there is potential for inducible resistance with Enterobacter cancerogenous. Appreciate Pharm ID and Medicine service input. Dispo: SNF vs [facility] for wound VAC care, IV antibiotics when medically stable and arrangements available given above constraints. (2) Diabetic foot ulcer: Qualifiers: Diabetes mellitus type: type 1 Diabetic foot ulcer location: midfoot Laterality: left Non-pressure ulcer stage: with bone involvement without evidence of necrosis Qualified Code(s): E10.621 - Type 1 diabetes mellitus with foot ulcer; L97.426 - Non-pressure chronic ulcer of left heel and midfoot with bone involvement without evidence of necrosis Code(s): E11.621 - Type 2 diabetes mellitus with foot ulcer; L97.509 - Non-pressure chronic ulcer of other part of unspecified foot with unspecified severity Status: Acute Subjective Subjective Date/Time Seen: 08/27/22 12:55 Post Op day: 2 Principal diagnosis: Left foot osteomyelitis Interval history: Pain improved. Tolerating wound VAC. No new complaints. Review of Systems Review of Systems: All systems reviewed & are unremarkable except as noted in HPI and below Exam Const: General: comfortable and no acute distress Neck: Neck: supple and no JVD Resp: Effort & Inspection: normal respiratory effort Cardio: Rate: regular rate Rhythm: regular rhythm Neuro: Cranial nerves: Yes Normal hearing present Extrem: Right upper extremity: normal to inspection Left upper extremity: normal to inspection Right lower extremity: foot Details: motor-sensory exam Details: two point discrimination abnormal Location: in all toes and light-touch abnormal Location: in all toes Left lower extremity: foot Details: toes with normal ROM, no edema, vascular exam Details: dorsalis pedis pulse present and abnormal capillary refill Location: of all toes and motor-sensory exam two point discrimination abnormal in all toes and light-touch abnormal in all toes; no unusual warmth and no ecchymosis Other: Wound VAC in place over incision lines. Some drainage noted. Wound nurses to make adjustments. Improvement in redness/swelling over the anterior and medial ankle, minimal fluctuance. Tenderness to palpation. No active drainage Psych: Mental Status: mental status grossly normal Affect: normal affect Objective Data Vital Signs Vital Signs: Vital Signs - 24 hr 08/26/22 14:45 08/26/22 20:00 08/26/22 21:23 Temperature 36.5 C 36.4 C Pulse Rate 89 84 Respiratory Rate 22 H 16 Blood Pressure 148/66 H 139/60 Pulse Oximetry 98 99 Oxygen Delivery Room Air 08/27/22 00:14 08/27/22 08:39 08/27/22 08:00 Temperature 36.5 C Pulse Rate 66 76 Respiratory Rate 16 Blood Pressure 102/74 Pulse Oximetry 100 98 Oxygen Delivery Room Air Intake/Output Intake/Output: Intake & Output 08/24/22 08/25/22 08/26/22 08/27/22 23:59 23:59 23:59 23:59 Intake Total 2370 1690 1330 940 Output Total 1275 3200 2750 400 Balance 1095 1510 1420 540 Meds/Results Medications: Active Medications Generic Name Dose Route Start Last Admin Trade Name Freq PRN Reason Stop Dose Admin Acetaminophen 650 mg 08/22/22 14:30 08/26/22 21:06 Lucio
[2022-08-27 14:35] VITALS: BP 148/62; PULSE 79; RESP 16; TEMP 36.2; O2SAT 100
--- NOTE | 2022-08-27 15:03 | PM.IMPN ---
Progress Note: A&P Assessment and Plan (1) Osteomyelitis: Code(s): M86.9 - Osteomyelitis, unspecified Status: Acute Assessment and Plan: CT with ulcer plantar to cuboid with osteomyelitis and pathologic fracture of cuboid with broken screw. Gas in calcaneus and talus, consistent with osteomyelitis. Stable. Will monitor. -Continue cefepime -Discontinue metronidazole and vancomycin -Signed paper for Care Coordination to order antibiotics - cefepime through October 01. -Appreciate Orthopedic Surgery recommendations -Wound Nurse Consulted 08/27/2022 interval history: patient is a 72-year-old female with history of diabetes last hemoglobin A1c 7.8, is found to have diabetic moved left ankle and foot patient was seen by orthopedic surgeon wound was debrided and suspicious osteomyelitis, wound culture is growing Enterobactter cancerogenous which very uncommon organism, patient is being treated with Cefepime will require the IV abx until 10/05/2022,and wound team will clean the wound and change the dressing, remains clinically stable will continue to monitor and further recommendation to follow (2) Positive blood culture: Code(s): R78.81 - Bacteremia Status: Acute Assessment and Plan: 2/2 blood cultures and the wound culture growing Enterobacter cancerogenous sensitive to cefepime. Repeat blood cultures with no growth so far -Continue cefepime (3) Diabetic foot ulcer: Qualifiers: Diabetes mellitus type: type 1 Diabetic foot ulcer location: midfoot Laterality: left Non-pressure ulcer stage: with bone involvement without evidence of necrosis Qualified Code(s): E10.621 - Type 1 diabetes mellitus with foot ulcer; L97.426 - Non-pressure chronic ulcer of left heel and midfoot with bone involvement without evidence of necrosis Code(s): E11.621 - Type 2 diabetes mellitus with foot ulcer; L97.509 - Non-pressure chronic ulcer of other part of unspecified foot with unspecified severity Status: Acute Assessment and Plan: See plan as noted above. (4) CHF (congestive heart failure): Code(s): I50.9 - Heart failure, unspecified Status: Acute Assessment and Plan: Compensated. On BB, arb and furosemide. Continue. Will monitor. (5) Anemia: Code(s): D64.9 - Anemia, unspecified Status: Acute Assessment and Plan: Preoperatively hemoglobin 11 and anemia has been worsening since surgery. Takes iron at home. Stable. Will monitor. -Continue ferrous sulfate 324 mg (6) Chronic renal insufficiency, stage III (moderate): Code(s): N18.3 - Chronic kidney disease, stage 3 (moderate) Status: Acute Assessment and Plan: Baseline creatinine 1.4-1.5. Creatinine stable. -Avoid nephrotoxic agents -Renally dose medications -Continue furosemide & losartan (7) Paroxysmal atrial fibrillation: Code(s): I48.0 - Paroxysmal atrial fibrillation Status: Acute Assessment and Plan: Rate controlled on metoprolol and anticoagulation with dabigatran. Continue. (8) Hypertension associated with diabetes: Code(s): E11.59 - Type 2 diabetes mellitus with other circulatory complications; I10 - Essential (primary) hypertension Status: Acute Assessment and Plan: On metoprolol and losartan. Continue. (9) Hyperlipidemia associated with type 2 diabetes mellitus: Code(s): E11.69 - Type 2 diabetes mellitus with other specified complication; E78.5 - Hyperlipidemia, unspecified Status: Acute Assessment and Plan: Needs to be on high intensity statin. Unclear if there is an allergy to atorvastatin or rosuvastatin. Will continue simvastatin for now. Continue home fenofibrate. (10) Diabetes mellitus: Code(s): E11.9 - Type 2 diabetes mellitus without complications Status: Acute Assessment and Plan: Hemoglobin a1c
--- NOTE | 2022-08-27 15:40 | PCPTNOTE ---
Spoke with Dr. Braga, Pt is allowed to be partial weight bearing on the heel ONLY. No weight through dressing/wound vac. RN aware
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
[2022-08-27 17:20] LABS: Glucose Point of Care 214 mg/dl (65-105)
[2022-08-27] MEDS: INSULIN ASPART (*BKC) 100 UNITS/ML SUB-Q (17:22)
[2022-08-27] MEDS: SIMVASTATIN 20 MG TABLET PO (20:24)
[2022-08-27] MEDS: DABIGATRAN ETEXILATE 150 MG CAPSULE PO (20:24)
[2022-08-27 20:41] LABS: Glucose Point of Care 201 mg/dl (65-105)
[2022-08-27 21:29] VITALS: BP 152/73; PULSE 84; RESP 18; TEMP 36.5; O2SAT 98
[2022-08-28 05:03] VITALS: BP 167/66; PULSE 68; RESP 20; TEMP 36.1; O2SAT 98
[2022-08-28 05:29] LABS: Basophils Absolute Auto 0.1 K/mm3 (0.0-0.1); Basophils Percent Auto 0.7 % (0.2-1.2); Eosinophils Absolute Auto 0.4 K/mm3 (0-0.3); Eosinophils Percent Auto 3.6 % (0-4.4); Hematocrit 27.8 % (37.0-47.0); Hemoglobin 8.2 g/dL (12.0-15.0); Immature Granulocyte Absolute 0.17 K/mm3 (0.00-0.031); Immature Granulocyte Percent A 1.4 % (0-0.5); Lymphocytes Absolute Auto 1.31 K/mm3 (0.9-3.2); Lymphocytes Percent Auto 10.7 % (18.3-44.2); Mean Corpuscular HGB Conc 29.5 g/dl (32-36); Mean Corpuscular Hemoglobin 24.5 pg (26-34); Mean Platelet Volume 9.1 fl (7.4-10.4); Monocytes Absolute Auto 0.8 K/mm3 (0.1-0.6); Monocytes Percent Auto 6.5 % (2.6-8.5); Neutrophils Absolute Auto 9.4 K/mm3 (1.3-6.7); Neutrophils Percent Auto 77.1 % (45.5-73.1); Platelet Count Result 537 k/mm3 (150-375); Red Blood Count 3.35 M/mm3 (4.2-5.4); White Blood Count 12.2 K/mm3 (4.5-10.0)
[2022-08-28 05:52] LABS: Anion Gap 7 mmol/L (8-16); Blood Urea Nitrogen 31 mg/dL (7-17); Calcium 8.9 mg/dL (8.4-10.2); Carbon Dioxide 32 mmol/L (22-30); Chloride 97 mmol/L (98-107); Estimated CRCL calculation 32 ml/min; Estimated Glomerular Filt Rate 37; Glucose 166 mg/dL (65-110); Potassium 3.7 mmol/L (3.4-5.0); Sodium 136 mmol/L (137-145)
[2022-08-28] MEDS: LEVOTHYROXINE SODIUM 50 MCG TABLET PO (05:53)
[2022-08-28 07:02] LABS: Erythrocyte Sedimentation Rate > 140 mm/hr (0-20)
[2022-08-28 07:14] LABS: Anisocytosis 2+ (NORMAL); Hypochromasia 2+ (NORMAL); Platelet Estimate Increased (Adequate)
[2022-08-28 07:15] LABS: Schistocytes 1+ (NORMAL); Tear Drop Cells 1+ (NORMAL)
[2022-08-28 08:29] LABS: Glucose Point of Care 152 mg/dl (65-105)
[2022-08-28] MEDS: CYANOCOBALAMIN 1,000 MCG TABLET 5000 MCG PO (09:04)
[2022-08-28] MEDS: CHOLECALCIFEROL 1,000 UNITS TABLET 5000 UNITS PO (09:05)
[2022-08-28] MEDS: ASPIRIN 81 MG ENTERIC TABLET PO (09:05)
[2022-08-28 09:06] VITALS: PULSE 74
[2022-08-28] MEDS: FENOFIBRATE,MICRONIZED 48 MG TABLET PO (09:06)
[2022-08-28] MEDS: FERROUS SULFATE 324 MG TABLET PO (09:06)
[2022-08-28] MEDS: METOPROLOL SUCCINATE EXT REL 100 MG TABCR PO (09:06)
[2022-08-28] MEDS: BENZONATATE 100 MG CAPSULE PO (09:08)
[2022-08-28] MEDS: INSULIN GLARGINE (*BKC) 100 UNITS/ML 47 UNITS SUB-Q ×2 (09:09→21:44)
[2022-08-28] MEDS: LOSARTAN POTASSIUM 25 MG TABLET PO (09:09)
[2022-08-28] MEDS: LORATADINE 5 MG TABLET PO (09:09)
[2022-08-28] MEDS: FUROSEMIDE 40 MG TABLET PO (09:09)
[2022-08-28 10:40] VITALS: BP 151/47; PULSE 81; RESP 18; TEMP 35.7; O2SAT 100
--- NOTE | 2022-08-28 10:53 | PM.PNORT ---
Progress Note: A&P Assessment and Plan (1) Osteomyelitis of foot, left, acute: Code(s): M86.172 - Other acute osteomyelitis, left ankle and foot Status: Acute Assessment and Plan: POD #[address] Some drainage. Continue IV antibiotics. Appreciate Pharm ID and Medicine service input. Dispo: SNF vs [facility] for wound VAC care, IV antibiotics when medically stable and arrangements available given above constraints. (2) Diabetic foot ulcer: Qualifiers: Diabetes mellitus type: type 1 Diabetic foot ulcer location: midfoot Laterality: left Non-pressure ulcer stage: with bone involvement without evidence of necrosis Qualified Code(s): E10.621 - Type 1 diabetes mellitus with foot ulcer; L97.426 - Non-pressure chronic ulcer of left heel and midfoot with bone involvement without evidence of necrosis Code(s): E11.621 - Type 2 diabetes mellitus with foot ulcer; L97.509 - Non-pressure chronic ulcer of other part of unspecified foot with unspecified severity Status: Acute Subjective Subjective Date/Time Seen: 08/28/22 10:53 Post Op day: 3 Principal diagnosis: Left foot osteomyelitis Interval history: Pain improved. Tolerating wound VAC. No new complaints. Exam Const: General: comfortable and no acute distress Neck: Neck: supple and no JVD Resp: Effort & Inspection: normal respiratory effort Cardio: Rate: regular rate Rhythm: regular rhythm Neuro: Cranial nerves: Yes Normal hearing present Extrem: Right upper extremity: normal to inspection Left upper extremity: normal to inspection Right lower extremity: foot Details: motor-sensory exam Details: two point discrimination abnormal Location: in all toes and light-touch abnormal Location: in all toes Left lower extremity: foot Details: toes with normal ROM, no edema, vascular exam Details: dorsalis pedis pulse present and abnormal capillary refill Location: of all toes and motor-sensory exam two point discrimination abnormal in all toes and light-touch abnormal in all toes; no unusual warmth and no ecchymosis Other: Wound VAC in place over incision lines. Some drainage noted. Wound nurses to make adjustments. Improvement in redness/swelling over the anterior and medial ankle, minimal fluctuance. Tenderness to palpation. No active drainage Psych: Mental Status: mental status grossly normal Affect: normal affect Objective Data Vital Signs Vital Signs: Vital Signs - 24 hr 08/27/22 14:35 08/27/22 21:29 08/28/22 05:03 Temperature 97.2 F L 97.7 F 97 F L Pulse Rate 79 84 68 Respiratory Rate 16 18 20 Blood Pressure 148/62 H 152/73 H 167/66 H Pulse Oximetry 100 98 98 Oxygen Delivery 08/28/22 08:14 08/28/22 09:06 08/28/22 08:35 Temperature Pulse Rate 74 Respiratory Rate Blood Pressure Pulse Oximetry Oxygen Delivery Room Air Room Air Intake/Output Intake/Output: Intake & Output 08/25/22 08/26/22 08/27/22 08/28/22 23:59 23:59 23:59 23:59 Intake Total 1690 1330 2142 390 Output Total 3200 2750 750 Balance -1510 -1420 1392 390 Meds/Results Medications: Active Medications Generic Name Dose Route Start Last Admin Trade Name Freq PRN Reason Stop Dose Admin Acetaminophen 650 mg 08/22/22 14:30 08/26/22 21:06 Acetaminophen 325 Mg Tablet PO 650 mg Q6H PRN Administration Mild Pain (1-3) or Fever Hydrocodone Bitart/Acetaminophen 1 tab 08/21/22 12:52 Hydrocodone/Acetaminophen (*Crx) 5-325 Mg Tablet PO Q4H PRN Moderate Pain (4-6) Aspirin 81 mg 08/22/22 09:00 08/28/22 09:05 Aspirin 81 Mg Enteric Tablet PO 81 mg DAILY POOJA Administration Benzonatate 100 mg 08/26/22 11:34 08/28/22 09:08 Benzonatate 100 Mg Capsule PO 08/31/22 11:33 100 mg TID PRN Administration Cough Cyanocobalamin 5,000 mcg 08/22/22 09:00 08/28/22 09:04 Cyanocobalamin 1,000 Mcg Tablet PO 5,000 mcg DAILY POOJA Administration Dabigatran 150 mg 08/21/22
[2022-08-28 12:36] LABS: Glucose Point of Care 237 mg/dl (65-105)
[2022-08-28] MEDS: INSULIN ASPART (*BKC) 100 UNITS/ML SUB-Q (12:51)
[2022-08-28] MEDS: HYDROcodone/acetaminophen (*CRX) 5-325 MG TABLET 1 TAB PO ×2 (12:56→21:48)
--- NOTE | 2022-08-28 13:56 | PM.IMPN ---
Progress Note: A&P Assessment and Plan (1) Osteomyelitis: Code(s): M86.9 - Osteomyelitis, unspecified Status: Acute Assessment and Plan: CT with ulcer plantar to cuboid with osteomyelitis and pathologic fracture of cuboid with broken screw. Gas in calcaneus and talus, consistent with osteomyelitis. Stable. Will monitor. -Continue cefepime -Discontinue metronidazole and vancomycin -Signed paper for Care Coordination to order antibiotics - cefepime through October 01. -Appreciate Orthopedic Surgery recommendations -Wound Nurse Consulted 08/28/2022 interval history: patient is a 72-year-old female with history of diabetes last hemoglobin A1c 7.8, is found to have diabetic moved left ankle and foot patient was seen by orthopedic surgeon wound was debrided and suspicious osteomyelitis, wound culture is growing Enterobactter cancerogenous which very uncommon organism, patient is being treated with Cefepime will require the IV abx until 10/05/2022,and wound team will clean the wound and change the dressing, wound vac is in placed, plan was to discharge patient to [place] however, patient was unable to get PICC line today, remains clinically stable will continue to monitor and further recommendation to follow (2) Positive blood culture: Code(s): R78.81 - Bacteremia Status: Acute Assessment and Plan: 2/2 blood cultures and the wound culture growing Enterobacter cancerogenous sensitive to cefepime. Repeat blood cultures with no growth so far -Continue cefepime (3) Diabetic foot ulcer: Qualifiers: Diabetes mellitus type: type 1 Diabetic foot ulcer location: midfoot Laterality: left Non-pressure ulcer stage: with bone involvement without evidence of necrosis Qualified Code(s): E10.621 - Type 1 diabetes mellitus with foot ulcer; L97.426 - Non-pressure chronic ulcer of left heel and midfoot with bone involvement without evidence of necrosis Code(s): E11.621 - Type 2 diabetes mellitus with foot ulcer; L97.509 - Non-pressure chronic ulcer of other part of unspecified foot with unspecified severity Status: Acute Assessment and Plan: See plan as noted above. (4) CHF (congestive heart failure): Code(s): I50.9 - Heart failure, unspecified Status: Acute Assessment and Plan: Compensated. On BB, arb and furosemide. Continue. Will monitor. (5) Anemia: Code(s): D64.9 - Anemia, unspecified Status: Acute Assessment and Plan: Preoperatively hemoglobin 11 and anemia has been worsening since surgery. Takes iron at home. Stable. Will monitor. -Continue ferrous sulfate 324 mg (6) Chronic renal insufficiency, stage III (moderate): Code(s): N18.3 - Chronic kidney disease, stage 3 (moderate) Status: Acute Assessment and Plan: Baseline creatinine 1.4-1.5. Creatinine stable. -Avoid nephrotoxic agents -Renally dose medications -Continue furosemide & losartan (7) Paroxysmal atrial fibrillation: Code(s): I48.0 - Paroxysmal atrial fibrillation Status: Acute Assessment and Plan: Rate controlled on metoprolol and anticoagulation with dabigatran. Continue. (8) Hypertension associated with diabetes: Code(s): E11.59 - Type 2 diabetes mellitus with other circulatory complications; I10 - Essential (primary) hypertension Status: Acute Assessment and Plan: On metoprolol and losartan. Continue. (9) Hyperlipidemia associated with type 2 diabetes mellitus: Code(s): E11.69 - Type 2 diabetes mellitus with other specified complication; E78.5 - Hyperlipidemia, unspecified Status: Acute Assessment and Plan: Needs to be on high intensity statin. Unclear if there is an allergy to atorvastatin or rosuvastatin. Will continue simvastatin for now. Continue home fenofibrate. (10) Diabetes mellitus: Code(s): E11.9 -
[2022-08-28 14:38] VITALS: BP 142/65; PULSE 81; RESP 17; TEMP 35.9; O2SAT 100
[2022-08-28] MEDS: ACETAMINOPHEN 325 MG TABLET 650 MG PO (16:52)
[2022-08-28 17:36] LABS: Glucose Point of Care 167 mg/dl (65-105)
[2022-08-28 20:00] VITALS: PULSE 71; RESP 18; O2SAT 98
[2022-08-28 21:13] LABS: Glucose Point of Care 132 mg/dl (65-105)
[2022-08-28] MEDS: SIMVASTATIN 20 MG TABLET PO (21:35)
[2022-08-28] MEDS: DABIGATRAN ETEXILATE 150 MG CAPSULE PO (21:35)
[2022-08-28 21:40] VITALS: BP 150/65; PULSE 71; RESP 18; TEMP 35.8; O2SAT 98
[2022-08-29] VITALS (7 sets, daily range): BP systolic 141–155; BP diastolic 45–66; PULSE 67–89; RESP 16–20; TEMP 35.8–37.4; O2SAT 89–100
[2022-08-29] MEDS: LEVOTHYROXINE SODIUM 50 MCG TABLET PO (06:35)
[2022-08-29 08:56] LABS: Glucose Point of Care 65 mg/dl (65-105)
[2022-08-29] MEDS: LOSARTAN POTASSIUM 25 MG TABLET PO (10:18)
[2022-08-29] MEDS: SENNA/DOCUSATE SODIUM TABLET 2 TAB PO (10:18)
[2022-08-29] MEDS: FENOFIBRATE,MICRONIZED 48 MG TABLET PO (10:18)
[2022-08-29] MEDS: ASPIRIN 81 MG ENTERIC TABLET PO (10:18)
[2022-08-29] MEDS: FERROUS SULFATE 324 MG TABLET PO (10:18)
[2022-08-29] MEDS: LORATADINE 5 MG TABLET PO (10:18)
[2022-08-29] MEDS: METOPROLOL SUCCINATE EXT REL 100 MG TABCR PO (10:19)
[2022-08-29] MEDS: CHOLECALCIFEROL 1,000 UNITS TABLET 5000 UNITS PO (10:19)
[2022-08-29] MEDS: CYANOCOBALAMIN 1,000 MCG TABLET 5000 MCG PO (10:19)
[2022-08-29] MEDS: FUROSEMIDE 40 MG TABLET PO (10:19)
[2022-08-29] MEDS: HYDROcodone/acetaminophen (*CRX) 5-325 MG TABLET 1 TAB PO (10:28)
[2022-08-29 10:29] LABS: Glucose Point of Care 81 mg/dl (65-105)
--- NOTE | 2022-08-29 11:02 | PM.IMPN ---
Progress Note: A&P Assessment and Plan (1) Osteomyelitis: Code(s): M86.9 - Osteomyelitis, unspecified Status: Acute Assessment and Plan: CT with ulcer plantar to cuboid with osteomyelitis and pathologic fracture of cuboid with broken screw. Gas in calcaneus and talus, consistent with osteomyelitis. Stable. Will monitor. -Continue cefepime -Discontinue metronidazole and vancomycin -Signed paper for Care Coordination to order antibiotics - cefepime through October 01. -Appreciate Orthopedic Surgery recommendations -Wound Nurse Consulted 08/29/2022 interval history: patient is a 72-year-old female with history of diabetes last hemoglobin A1c 7.8, is found to have diabetic wound in left ankle and foot patient was seen by orthopedic surgeon wound was debrided POD #4 and suspicious for osteomyelitis, wound culture is growing Enterobactter cancerogenous which very uncommon organism, patient is being treated with Cefepime will require the IV abx until 10/05/2022,and wound team will clean the wound and change the dressing, wound vac is in placed, plan was to discharge patient to [place] however, patient was unable to get PICC line on 08/28 remains clinically stable will continue to monitor and further recommendation to follow (2) Positive blood culture: Code(s): R78.81 - Bacteremia Status: Acute Assessment and Plan: 2/2 blood cultures and the wound culture growing Enterobacter cancerogenous sensitive to cefepime. Repeat blood cultures with no growth so far -Continue cefepime (3) Diabetic foot ulcer: Qualifiers: Diabetes mellitus type: type 1 Diabetic foot ulcer location: midfoot Laterality: left Non-pressure ulcer stage: with bone involvement without evidence of necrosis Qualified Code(s): E10.621 - Type 1 diabetes mellitus with foot ulcer; L97.426 - Non-pressure chronic ulcer of left heel and midfoot with bone involvement without evidence of necrosis Code(s): E11.621 - Type 2 diabetes mellitus with foot ulcer; L97.509 - Non-pressure chronic ulcer of other part of unspecified foot with unspecified severity Status: Acute Assessment and Plan: See plan as noted above. (4) CHF (congestive heart failure): Code(s): I50.9 - Heart failure, unspecified Status: Acute Assessment and Plan: Compensated. On BB, arb and furosemide. Continue. Will monitor. (5) Anemia: Code(s): D64.9 - Anemia, unspecified Status: Acute Assessment and Plan: Preoperatively hemoglobin 11 and anemia has been worsening since surgery. Takes iron at home. Stable. Will monitor. -Continue ferrous sulfate 324 mg (6) Chronic renal insufficiency, stage III (moderate): Code(s): N18.3 - Chronic kidney disease, stage 3 (moderate) Status: Acute Assessment and Plan: Baseline creatinine 1.4-1.5. Creatinine stable. -Avoid nephrotoxic agents -Renally dose medications -Continue furosemide & losartan (7) Paroxysmal atrial fibrillation: Code(s): I48.0 - Paroxysmal atrial fibrillation Status: Acute Assessment and Plan: Rate controlled on metoprolol and anticoagulation with dabigatran. Continue. (8) Hypertension associated with diabetes: Code(s): E11.59 - Type 2 diabetes mellitus with other circulatory complications; I10 - Essential (primary) hypertension Status: Acute Assessment and Plan: On metoprolol and losartan. Continue. (9) Hyperlipidemia associated with type 2 diabetes mellitus: Code(s): E11.69 - Type 2 diabetes mellitus with other specified complication; E78.5 - Hyperlipidemia, unspecified Status: Acute Assessment and Plan: Needs to be on high intensity statin. Unclear if there is an allergy to atorvastatin or rosuvastatin. Will continue simvastatin for now. Continue home fenofibrate. (10) Diabetes mellitus:
[2022-08-29 12:14] LABS: Glucose Point of Care 159 mg/dl (65-105)
[2022-08-29 17:22] LABS: Glucose Point of Care 130 mg/dl (65-105)
[2022-08-29] MEDS: ACETAMINOPHEN 325 MG TABLET 650 MG PO (21:28)
[2022-08-29] MEDS: SIMVASTATIN 20 MG TABLET PO (21:28)
[2022-08-29] MEDS: DABIGATRAN ETEXILATE 150 MG CAPSULE PO (21:28)
[2022-08-29 21:43] LABS: Glucose Point of Care 107 mg/dl (65-105)
[2022-08-30 05:34] LABS: Potassium 3.4 mmol/L (3.4-5.0)
[2022-08-30] MEDS: LEVOTHYROXINE SODIUM 50 MCG TABLET PO (06:23)
[2022-08-30 09:01] LABS: Glucose Point of Care 75 mg/dl (65-105)
--- NOTE | 2022-08-30 09:57 | PC.NURSE ---
patient refusing vital signs to be taken at this time.
[2022-08-30 10:24] VITALS: BP 136/60; PULSE 94; RESP 16; TEMP 36.2; O2SAT 95
[2022-08-30] MEDS: FENOFIBRATE,MICRONIZED 48 MG TABLET PO (10:35)
[2022-08-30] MEDS: LORATADINE 5 MG TABLET PO (10:35)
[2022-08-30] MEDS: FERROUS SULFATE 324 MG TABLET PO (10:35)
[2022-08-30 10:36] VITALS: PULSE 78
[2022-08-30] MEDS: METOPROLOL SUCCINATE EXT REL 100 MG TABCR PO (10:36)
[2022-08-30] MEDS: FUROSEMIDE 40 MG TABLET PO (10:36)
[2022-08-30] MEDS: LOSARTAN POTASSIUM 25 MG TABLET PO (10:36)
[2022-08-30] MEDS: CYANOCOBALAMIN 1,000 MCG TABLET 5000 MCG PO (10:37)
[2022-08-30] MEDS: CHOLECALCIFEROL 1,000 UNITS TABLET 5000 UNITS PO (10:37)
[2022-08-30 11:46] LABS: Glucose Point of Care 115 mg/dl (65-105)
--- NOTE | 2022-08-30 12:43 | PM.IMPN ---
Progress Note: A&P Assessment and Plan (1) Osteomyelitis: Code(s): M86.9 - Osteomyelitis, unspecified Status: Acute Assessment and Plan: CT with ulcer plantar to cuboid with osteomyelitis and pathologic fracture of cuboid with broken screw. Gas in calcaneus and talus, consistent with osteomyelitis. Stable. Will monitor. -Continue cefepime -Discontinue metronidazole and vancomycin -Signed paper for Care Coordination to order antibiotics - cefepime through October 01. -Appreciate Orthopedic Surgery recommendations -Wound Nurse Consulted 08/30/2022 interval history: patient is a 72-year-old female with history of diabetes last hemoglobin A1c 7.8, is found to have diabetic wound in left ankle and foot patient was seen by orthopedic surgeon wound was debrided POD #5 and suspicious for osteomyelitis, wound culture is growing Enterobactter cancerogenous which very uncommon organism, patient is being treated with Cefepime will require the IV abx until 10/05/2022,and wound team will clean the wound and change the dressing, wound vac is in placed, plan was to discharge patient to [place] however, patient was unable to get PICC line on 08/28, today patient slightly agitated and refuse vitals this morning, today spoke with her sister Zina and gave updats, remains clinically stable will continue to monitor and further recommendation to follow. (2) Positive blood culture: Code(s): R78.81 - Bacteremia Status: Acute Assessment and Plan: 2/2 blood cultures and the wound culture growing Enterobacter cancerogenous sensitive to cefepime. Repeat blood cultures with no growth so far -Continue cefepime (3) Diabetic foot ulcer: Qualifiers: Diabetes mellitus type: type 1 Diabetic foot ulcer location: midfoot Laterality: left Non-pressure ulcer stage: with bone involvement without evidence of necrosis Qualified Code(s): E10.621 - Type 1 diabetes mellitus with foot ulcer; L97.426 - Non-pressure chronic ulcer of left heel and midfoot with bone involvement without evidence of necrosis Code(s): E11.621 - Type 2 diabetes mellitus with foot ulcer; L97.509 - Non-pressure chronic ulcer of other part of unspecified foot with unspecified severity Status: Acute Assessment and Plan: See plan as noted above. (4) CHF (congestive heart failure): Code(s): I50.9 - Heart failure, unspecified Status: Acute Assessment and Plan: Compensated. On BB, arb and furosemide. Continue. Will monitor. (5) Anemia: Code(s): D64.9 - Anemia, unspecified Status: Acute Assessment and Plan: Preoperatively hemoglobin 11 and anemia has been worsening since surgery. Takes iron at home. Stable. Will monitor. -Continue ferrous sulfate 324 mg (6) Chronic renal insufficiency, stage III (moderate): Code(s): N18.3 - Chronic kidney disease, stage 3 (moderate) Status: Acute Assessment and Plan: Baseline creatinine 1.4-1.5. Creatinine stable. -Avoid nephrotoxic agents -Renally dose medications -Continue furosemide & losartan (7) Paroxysmal atrial fibrillation: Code(s): I48.0 - Paroxysmal atrial fibrillation Status: Acute Assessment and Plan: Rate controlled on metoprolol and anticoagulation with dabigatran. Continue. (8) Hypertension associated with diabetes: Code(s): E11.59 - Type 2 diabetes mellitus with other circulatory complications; I10 - Essential (primary) hypertension Status: Acute Assessment and Plan: On metoprolol and losartan. Continue. (9) Hyperlipidemia associated with type 2 diabetes mellitus: Code(s): E11.69 - Type 2 diabetes mellitus with other specified complication; E78.5 - Hyperlipidemia, unspecified Status: Acute Assessment and Plan: Needs to be on high intensity statin. Unclear if there is an allergy to atorvast
[2022-08-30 15:39] VITALS: BP 145/70; PULSE 98; RESP 16; TEMP 36.1; O2SAT 99
[2022-08-30 16:56] LABS: Glucose Point of Care 123 mg/dl (65-105)
[2022-08-30 19:57] VITALS: BP 149/56; PULSE 80; RESP 18; TEMP 36.7; O2SAT 98
[2022-08-30] MEDS: SIMVASTATIN 20 MG TABLET PO (21:07)
[2022-08-30] MEDS: DABIGATRAN ETEXILATE 150 MG CAPSULE PO (21:07)
[2022-08-30] MEDS: INSULIN GLARGINE (*BKC) 100 UNITS/ML 47 UNITS SUB-Q (21:27)
[2022-08-30 22:00] LABS: Glucose Point of Care 152 mg/dl (65-105)
[2022-08-30 23:26] VITALS: BP 150/53; PULSE 78; RESP 18; TEMP 36.9; O2SAT 96
[2022-08-31 06:05] VITALS: BP 144/67; PULSE 81; RESP 18; TEMP 36.9; O2SAT 95
[2022-08-31] MEDS: LEVOTHYROXINE SODIUM 50 MCG TABLET PO (06:06)
[2022-08-31 06:45] LABS: Hemoglobin 8.1 g/dL (12.0-15.0); Mean Corpuscular Hemoglobin 24.8 pg (26-34); Mean Corpuscular Volume 82.6 fl (80-100); Mean Platelet Volume 9.3 fl (7.4-10.4); Platelet Count Result 522 k/mm3 (150-375); Red Blood Count 3.27 M/mm3 (4.2-5.4); White Blood Count 12.3 K/mm3 (4.5-10.0)
[2022-08-31 06:56] LABS: Anion Gap 13 mmol/L (8-16); Blood Urea Nitrogen 34 mg/dL (7-17); Calcium 9.1 mg/dL (8.4-10.2); Carbon Dioxide 29 mmol/L (22-30); Chloride 99 mmol/L (98-107); Estimated CRCL calculation 28 ml/min; Estimated Glomerular Filt Rate 32; Glucose 70 mg/dL (65-110); Magnesium 2.5 mg/dL (1.6-2.3); Potassium 3.2 mmol/L (3.4-5.0); Sodium 141 mmol/L (137-145)
[2022-08-31 08:28] VITALS: PULSE 84
[2022-08-31] MEDS: LOSARTAN POTASSIUM 25 MG TABLET PO (08:28)
[2022-08-31] MEDS: LORATADINE 5 MG TABLET PO (08:28)
[2022-08-31] MEDS: METOPROLOL SUCCINATE EXT REL 100 MG TABCR PO (08:28)
[2022-08-31] MEDS: FERROUS SULFATE 324 MG TABLET PO (08:29)
[2022-08-31] MEDS: CHOLECALCIFEROL 1,000 UNITS TABLET 5000 UNITS PO (08:29)
[2022-08-31] MEDS: FUROSEMIDE 40 MG TABLET PO (08:29)
[2022-08-31 08:30] VITALS: RESP 18; O2SAT 95
[2022-08-31] MEDS: FENOFIBRATE,MICRONIZED 48 MG TABLET PO (08:30)
[2022-08-31] MEDS: ASPIRIN 81 MG ENTERIC TABLET PO (08:30)
[2022-08-31] MEDS: CYANOCOBALAMIN 1,000 MCG TABLET 5000 MCG PO (08:30)
[2022-08-31 08:36] LABS: Glucose Point of Care 72 mg/dl (65-105)
--- NOTE | 2022-08-31 10:55 | PCOTNOTE ---
Attempted to see patient, patient refused at this time. Patient was about to make a phone call with assist from wound RN, and declined to get cleaned up. Patient reported participating in bathing yesterday and refused at this time. Patient requested therapist try again later to see her. Will continue per plan of care for OT.
[2022-08-31 12:18] LABS: Glucose Point of Care 144 mg/dl (65-105)
--- NOTE | 2022-08-31 12:31 | PM.PNORT ---
Progress Note: A&P Assessment and Plan (1) Osteomyelitis of foot, left, acute: Code(s): M86.172 - Other acute osteomyelitis, left ankle and foot Status: Acute Assessment and Plan: POD #6 Wound VAC discontinued at this time. New areas of necrosis skin over the ankle as well as forefoot and toes. Poor arterial flow. Right foot with better flow but no palpable pulses. Switch to wet to dry dressings with no pressure on the foot or ankle. Plan vascular evaluation. Further treatment based on results. Discussed with patient in detail. Discussed problems with arterial blood flow and possibility of amputation. (2) Diabetic foot ulcer: Qualifiers: Diabetes mellitus type: type 1 Diabetic foot ulcer location: midfoot Laterality: left Non-pressure ulcer stage: with bone involvement without evidence of necrosis Qualified Code(s): E10.621 - Type 1 diabetes mellitus with foot ulcer; L97.426 - Non-pressure chronic ulcer of left heel and midfoot with bone involvement without evidence of necrosis Code(s): E11.621 - Type 2 diabetes mellitus with foot ulcer; L97.509 - Non-pressure chronic ulcer of other part of unspecified foot with unspecified severity Status: Acute Assessment and Plan: Still awaiting vascular access for IV antibiotic treatment. Subjective Subjective Date/Time Seen: 08/31/22 10:31 Post Op day: 6 Principal diagnosis: Left foot osteomyelitis Interval history: Difficulty with long-term IV access management over the weekend. Patient remained in the hospital for IV antibiotics. Wound VAC changed on August 28. No new complaints about foot. Patient does state that she is tired of being in the hospital. Exam Const: General: no acute distress, anxious and uncomfortable Nutritional Appearance: average body habitus Orientation/consciousness: oriented to person, oriented to place, oriented to time and Other orientation findings ( States does not trust caregivers) HENMT: Head: normal to inspection, normocephalic and atraumatic Resp: Effort & Inspection: normal respiratory effort Cardio: Rate: regular rate Rhythm: regular rhythm Neuro: Cranial nerves: Yes Normal hearing present Extrem: Right upper extremity: normal to inspection Left upper extremity: normal to inspection Right lower extremity: foot Details: abnormal to inspection Details: pallor ( foot and toes), vascular exam Details: abnormal capillary refill Location: of all toes; dorsalis pedis pulse absent, posterior tibial pulse absent, not cool and no cyanosis and motor-sensory exam Details: two point discrimination abnormal Location: in all toes and light-touch abnormal Location: in all toes Left lower extremity: foot Details: abnormal to inspection Details: pallor ( toes and forefoot) and cyanosis ( anterior ankle and medial ankle), abnormal ROM of toe ( decreased motion), no edema, vascular exam Details: abnormal capillary refill Location: of all toes, coolness and cyanosis ( anterior ankle); dorsalis pedis pulse absent and posterior tivial pulse absent and motor-sensory exam two point discrimination abnormal in all toes and light-touch abnormal in all toes; no unusual warmth and no ecchymosis Other: Wound VAC in place. dressing removed. No active drainage from the incisions. Otherwise dry. Area of cyanosis anterior ankle and medial ankle new since August 28. left foot toes with cyanosis, poor capillary refill, nonpalpable pulses. Objective Data Vital Signs Vital Signs: Vital Signs - 24 hr 08/30/22 15:39 08/30/22 19:57 08/30/22 21:23 Temperature 97 F L 98.0 F Pulse Rate 98 80 Respiratory Rate 16 18 Blood Pressure 145/70 H 149/56 H Pulse Oximetry 99 98 Oxygen Delivery Room Air 08/30/22 23:26 08/31/22 06:05 08/31/22 08:28 Temperature 98.4 F 98.4 F Pulse Rate 78 81 84 Respiratory Rate 18 18 Blood Pressure 150/53 H 144/67 H Pulse Oximetry 96 95 Oxygen Delivery 08/31/22 08:30 Temp
[2022-08-31 14:12] VITALS: BP 138/66; PULSE 83; RESP 20; TEMP 36.8; O2SAT 99
--- NOTE | 2022-08-31 14:31 | PM.IMPN ---
Progress Note: A&P Assessment and Plan (1) Osteomyelitis: Code(s): M86.9 - Osteomyelitis, unspecified Status: Acute Assessment and Plan: CT with ulcer plantar to cuboid with osteomyelitis and pathologic fracture of cuboid with broken screw. Gas in calcaneus and talus, consistent with osteomyelitis. Stable. Will monitor. -Continue cefepime -Discontinue metronidazole and vancomycin -Signed paper for Care Coordination to order antibiotics - cefepime through October 01. -Appreciate Orthopedic Surgery recommendations -Wound Nurse Consulted 08/31/2022 interval history: patient is a 72-year-old female with history of diabetes last hemoglobin A1c 7.8, is found to have diabetic wound in left ankle and foot patient was seen by orthopedic surgeon wound was debrided POD #6 and suspicious for osteomyelitis, wound culture is growing Enterobactter cancerogenous which very uncommon organism, patient is being treated with Cefepime will require the IV abx until 10/05/2022,and wound team will clean the wound and change the dressing, wound vac is in placed, today patient was seeing her ortho today and suggested angiogram of the foot and ankle to futher evaluate her wound circulation, will follow up on the angio of the foot and ankle and further recommendation to follow, on 08/30 patient was slightly agitated and refused vitals in the morning, today spoke with her sister Zina and gave updats, remains clinically stable will continue to monitor and further recommendation to follow. (2) Positive blood culture: Code(s): R78.81 - Bacteremia Status: Acute Assessment and Plan: 2/2 blood cultures and the wound culture growing Enterobacter cancerogenous sensitive to cefepime. Repeat blood cultures with no growth so far -Continue cefepime (3) Diabetic foot ulcer: Qualifiers: Diabetes mellitus type: type 1 Diabetic foot ulcer location: midfoot Laterality: left Non-pressure ulcer stage: with bone involvement without evidence of necrosis Qualified Code(s): E10.621 - Type 1 diabetes mellitus with foot ulcer; L97.426 - Non-pressure chronic ulcer of left heel and midfoot with bone involvement without evidence of necrosis Code(s): E11.621 - Type 2 diabetes mellitus with foot ulcer; L97.509 - Non-pressure chronic ulcer of other part of unspecified foot with unspecified severity Status: Acute Assessment and Plan: See plan as noted above. (4) CHF (congestive heart failure): Code(s): I50.9 - Heart failure, unspecified Status: Acute Assessment and Plan: Compensated. On BB, arb and furosemide. Continue. Will monitor. (5) Anemia: Code(s): D64.9 - Anemia, unspecified Status: Acute Assessment and Plan: Preoperatively hemoglobin 11 and anemia has been worsening since surgery. Takes iron at home. Stable. Will monitor. -Continue ferrous sulfate 324 mg (6) Chronic renal insufficiency, stage III (moderate): Code(s): N18.3 - Chronic kidney disease, stage 3 (moderate) Status: Acute Assessment and Plan: Baseline creatinine 1.4-1.5. Creatinine stable. -Avoid nephrotoxic agents -Renally dose medications -Continue furosemide & losartan (7) Paroxysmal atrial fibrillation: Code(s): I48.0 - Paroxysmal atrial fibrillation Status: Acute Assessment and Plan: Rate controlled on metoprolol and anticoagulation with dabigatran. Continue. (8) Hypertension associated with diabetes: Code(s): E11.59 - Type 2 diabetes mellitus with other circulatory complications; I10 - Essential (primary) hypertension Status: Acute Assessment and Plan: On metoprolol and losartan. Continue. (9) Hyperlipidemia associated with type 2 diabetes mellitus: Code(s): E11.69 - Type 2 diabetes mellitus with other specified complication; E78.5 - Hyperlipidemia, unspeci
[2022-08-31 17:22] LABS: Glucose Point of Care 175 mg/dl (65-105)
[2022-08-31] MEDS: SIMVASTATIN 20 MG TABLET PO (21:30)
[2022-08-31] MEDS: DABIGATRAN ETEXILATE 150 MG CAPSULE PO (21:30)
[2022-08-31] MEDS: INSULIN GLARGINE (*BKC) 100 UNITS/ML 47 UNITS SUB-Q (21:34)
[2022-08-31 22:00] VITALS: BP 101/62; PULSE 72; RESP 17; TEMP 36.7; O2SAT 98
[2022-08-31 22:01] LABS: Glucose Point of Care 238 mg/dl (65-105)
[2022-09-01 05:22] VITALS: BP 124/36; PULSE 79; RESP 18; TEMP 36.8; O2SAT 96
[2022-09-01] MEDS: LEVOTHYROXINE SODIUM 50 MCG TABLET PO (05:40)
[2022-09-01 07:03] LABS: Hematocrit 25.2 % (37.0-47.0); Hemoglobin 7.6 g/dL (12.0-15.0); Mean Corpuscular HGB Conc 30.2 g/dl (32-36); Mean Corpuscular Hemoglobin 24.5 pg (26-34); Mean Corpuscular Volume 81.3 fl (80-100); Mean Platelet Volume 9.4 fl (7.4-10.4); Platelet Count Result 462 k/mm3 (150-375); Red Cell Distribution Width 16.2 % (11.5-14.5); White Blood Count 11.6 K/mm3 (4.5-10.0)
[2022-09-01 07:15] LABS: Anion Gap 7 mmol/L (8-16); Blood Urea Nitrogen 44 mg/dL (7-17); Calcium 8.9 mg/dL (8.4-10.2); Carbon Dioxide 28 mmol/L (22-30); Chloride 100 mmol/L (98-107); Estimated CRCL calculation 27 ml/min; Estimated Glomerular Filt Rate 30; Glucose 149 mg/dL (65-110); Magnesium 2.4 mg/dL (1.6-2.3); Potassium 3.8 mmol/L (3.4-5.0); Sodium 135 mmol/L (137-145)
[2022-09-01 07:49] LABS: Glucose Point of Care 144 mg/dl (65-105)
[2022-09-01] MEDS: CYANOCOBALAMIN 1,000 MCG TABLET 5000 MCG PO (09:42)
[2022-09-01 09:43] VITALS: PULSE 84
[2022-09-01] MEDS: FENOFIBRATE,MICRONIZED 48 MG TABLET PO (09:43)
[2022-09-01] MEDS: LOSARTAN POTASSIUM 25 MG TABLET PO (09:43)
[2022-09-01] MEDS: METOPROLOL SUCCINATE EXT REL 100 MG TABCR PO (09:43)
[2022-09-01] MEDS: FERROUS SULFATE 324 MG TABLET PO (09:44)
[2022-09-01] MEDS: FUROSEMIDE 40 MG TABLET PO (09:44)
[2022-09-01] MEDS: CHOLECALCIFEROL 1,000 UNITS TABLET 5000 UNITS PO (09:45)
[2022-09-01] MEDS: ASPIRIN 81 MG ENTERIC TABLET PO (09:46)
[2022-09-01 09:47] VITALS: RESP 18; O2SAT 96
[2022-09-01] MEDS: LORATADINE 5 MG TABLET PO (09:47)
[2022-09-01] MEDS: INSULIN GLARGINE (*BKC) 100 UNITS/ML 47 UNITS SUB-Q (09:54)
[2022-09-01 12:28] LABS: Glucose Point of Care 189 mg/dl (65-105)
--- NOTE | 2022-09-01 12:28 | PM.PNORT ---
Progress Note: A&P Assessment and Plan (1) Osteomyelitis of foot, left, acute: Code(s): M86.172 - Other acute osteomyelitis, left ankle and foot Status: Acute Assessment and Plan: wound VAC stopped yesterday. Unable to tolerate due to poor vascularity. Proceed with dry dressing changes daily. (2) Peripheral arterial occlusive disease: Code(s): I77.9 - Disorder of arteries and arterioles, unspecified Status: Acute Assessment and Plan: Arteriogram results reviewed with patient. Expected observation with conservative care versus amputation discussed in detail. Questions answered. She is not ready to proceed with amputation at this time. She would like to transfer to correction and consider options. Recommend continue IV antibiotics and daily dressing changes. May consider vascular surgery evaluation. Plan to follow up with patient in wound clinic in 1 week. Subjective Subjective Date/Time Seen: 09/01/22 12:28 Post Op day: 7 Principal diagnosis: Left foot osteomyelitis, arterial disease Interval history: patient rates pain 3/10. No changes overnight. Angiogram findings reviewed with the patient which show compromised arterial blood flow to the left foot. Treatment options reviewed. Her questions were answered. she verbalizes understanding of her option for conservative care versus amputation. Exam Const: General: no acute distress, anxious and uncomfortable Nutritional Appearance: average body habitus Orientation/consciousness: oriented to person, oriented to place, oriented to time and Other orientation findings ( States does not trust caregivers) HENMT: Head: normal to inspection, normocephalic and atraumatic Resp: Effort & Inspection: normal respiratory effort Cardio: Rate: regular rate Rhythm: regular rhythm Neuro: Cranial nerves: Yes Normal hearing present Extrem: Right upper extremity: normal to inspection Left upper extremity: normal to inspection Right lower extremity: foot Details: abnormal to inspection Details: pallor ( foot and toes), vascular exam Details: abnormal capillary refill Location: of all toes; dorsalis pedis pulse absent, posterior tibial pulse absent, not cool and no cyanosis and motor-sensory exam Details: two point discrimination abnormal Location: in all toes and light-touch abnormal Location: in all toes Left lower extremity: foot Details: abnormal to inspection Details: pallor ( toes and forefoot) and cyanosis ( anterior ankle and medial ankle), abnormal ROM of toe ( decreased motion), no edema, vascular exam Details: abnormal capillary refill Location: of all toes, coolness and cyanosis ( anterior ankle); dorsalis pedis pulse absent and posterior tivial pulse absent and motor-sensory exam two point discrimination abnormal in all toes and light-touch abnormal in all toes; no unusual warmth and no ecchymosis Other: dressing removed. No active drainage from the incisions. Area of cyanosis anterior ankle and medial ankle new since August 28 - now with necrotic eschar. left foot toes with cyanosis, poor capillary refill, nonpalpable pulses. Objective Data Vital Signs Vital Signs: Vital Signs - 24 hr 08/31/22 14:12 08/31/22 22:00 09/01/22 05:22 Temperature 98.3 F 98.0 F 98.3 F Pulse Rate 83 72 79 Respiratory Rate 20 17 18 Blood Pressure 138/66 101/62 124/36 L Pulse Oximetry 99 98 96 Oxygen Delivery 09/01/22 09:43 09/01/22 09:47 Temperature Pulse Rate 84 Respiratory Rate 18 Blood Pressure Pulse Oximetry 96 Oxygen Delivery Room Air Intake/Output Intake/Output: Intake & Output 08/29/22 08/30/22 08/31/22 09/01/22 23:59 23:59 23:59 23:59 Intake Total 1130 1250 1020 490 Output Total 489 639 5534 600 Balance 230 217 -668 -110 Meds/Results Medications: Active Medications Generic Name Dose Route Start Last Admin Trade Name Freq PRN Reason Stop Dose Admin Acetaminophen 650 mg 08/22/22 14:30
--- NOTE | 2022-09-01 12:55 | P.DS_ITS ---
DS: Admitting Diagnosis Discharge Date 09/01/2022 Admitting Diagnosis Diabetic foot ulcer DS: Discharge Diagnosis Discharge Diagnosis (1) Osteomyelitis: Code(s): M86.9 - Osteomyelitis, unspecified Status: Acute Assessment and Plan: CT with ulcer plantar to cuboid with osteomyelitis and pathologic fracture of cuboid with broken screw. Gas in calcaneus and talus, consistent with osteomyelitis. Stable. Will monitor. -Continue cefepime -Discontinue metronidazole and vancomycin -Signed paper for Care Coordination to order antibiotics - cefepime through October 01. -Appreciate Orthopedic Surgery recommendations -Wound Nurse Consulted 08/31/2022 interval history: patient is a 72-year-old female with history of diabetes last hemoglobin A1c 7.8, is found to have diabetic wound in left ankle and foot patient was seen by orthopedic surgeon wound was debrided POD #6 and suspicious for osteomyelitis, wound culture is growing Enterobactter cancerogenous which very uncommon organism, patient is being treated with Cefepime will require the IV abx until 10/05/2022,and wound team will clean the wound and change the dressing, wound vac is in placed, today patient was seeing her ortho today and suggested angiogram of the foot and ankle to futher evaluate her wound circulation, will follow up on the angio of the foot and ankle and further recommendation to follow, on 08/30 patient was slightly agitated and refused vitals in the morning, today spoke with her sister Zina and gave updats, remains clinically stable will continue to monitor and further recommendation to follow. (2) Positive blood culture: Code(s): R78.81 - Bacteremia Status: Acute Assessment and Plan: 2/2 blood cultures and the wound culture growing Enterobacter cancerogenous sensitive to cefepime. Repeat blood cultures with no growth so far -Continue cefepime (3) Diabetic foot ulcer: Qualifiers: Diabetes mellitus type: type 1 Diabetic foot ulcer location: midfoot Laterality: left Non-pressure ulcer stage: with bone involvement without evidence of necrosis Qualified Code(s): E10.621 - Type 1 diabetes mellitus with foot ulcer; L97.426 - Non-pressure chronic ulcer of left heel and midfoot with bone involvement without evidence of necrosis Code(s): E11.621 - Type 2 diabetes mellitus with foot ulcer; L97.509 - Non-pressure chronic ulcer of other part of unspecified foot with unspecified severity Status: Acute Assessment and Plan: See plan as noted above. (4) CHF (congestive heart failure): Code(s): I50.9 - Heart failure, unspecified Status: Acute Assessment and Plan: Compensated. On BB, arb and furosemide. Continue. Will monitor. (5) Anemia: Code(s): D64.9 - Anemia, unspecified Status: Acute Assessment and Plan: Preoperatively hemoglobin 11 and anemia has been worsening since surgery. Takes iron at home. Stable. Will monitor. -Continue ferrous sulfate 324 mg (6) Chronic renal insufficiency, stage III (moderate): Code(s): N18.3 - Chronic kidney disease, stage 3 (moderate) Status: Acute Assessment and Plan: Baseline creatinine 1.4-1.5. Creatinine stable. -Avoid nephrotoxic agents -Renally dose medications -Continue furosemide & losartan (7) Paroxysmal atrial fibrillation: Code(s): I48.0 - Paroxysmal atrial fibrillation Status: Acute Assessment and Plan: Rate controlled on m
[2022-09-01 13:50] LABS: EDCOVIDSCREEN Negative (Negative)
[2022-09-01 14:44] VITALS: BP 145/70; PULSE 82; RESP 16; TEMP 37.4; O2SAT 97
== END 2022-09-01 14:55 | DRG 623 ==
PROVIDERS: Family Medicine; Nurse Practitioner; Orthopaedic Surgery; Admitting Provider Chiropractor; PCP Family Medicine; Visit Provider Family Medicine
PROC: 0KBW0ZZ Excision of Left Foot Muscle, Open Approach (ICD-10-PCS; principal; 2022-08-25 10:15)
DX: E11.69 Type 2 diabetes mellitus with other specified complication (principal); I13.0 Hypertensive heart and chronic kidney disease with heart failure and stage 1 through stage 4 chronic kidney disease, or unspecified chronic kidney disease; M86.172 Other acute osteomyelitis, left ankle and foot; I25.810 Atherosclerosis of coronary artery bypass graft(s) without angina pectoris; L97.426 Non-pressure chronic ulcer of left heel and midfoot with bone involvement without evidence of necrosis; R78.81 Bacteremia; M84.48XA Pathological fracture, other site, initial encounter for fracture; B96.89 Other specified bacterial agents as the cause of diseases classified elsewhere; E11.621 Type 2 diabetes mellitus with foot ulcer; N18.30 Chronic kidney disease, stage 3 unspecified; E11.22 Type 2 diabetes mellitus with diabetic chronic kidney disease; I50.9 Heart failure, unspecified; Z20.822 Contact with and (suspected) exposure to COVID-19; I48.0 Paroxysmal atrial fibrillation; E03.9 Hypothyroidism, unspecified; E78.5 Hyperlipidemia, unspecified; D50.9 Iron deficiency anemia, unspecified; E53.8 Deficiency of other specified B group vitamins; E55.9 Vitamin D deficiency, unspecified; I73.9 Peripheral vascular disease, unspecified; Z95.1 Presence of aortocoronary bypass graft; Z90.710 Acquired absence of both cervix and uterus; Z90.722 Acquired absence of ovaries, bilateral; Z79.82 Long term (current) use of aspirin
CPT/HCPCS: 36415; 73610; 73630; 73702; 73706; 80048; 80053; 80076; 80202; 81001; 82565; 82728; 82948; 83036; 83605; 83735; 84132; 84443; 85014; 85018; 85025; 85027; 85652; 86140; 87040; 87070; 87077; 87186; 87205; 87426; 93005; 97110; 97116; 97162; 97165; 97530; 97535; 99213; A9270; C1751; C9803; G0463; J0692; J1815; J2704; J3370; J7030; J7042; J7120; Q9967

== ENCOUNTER 2022-09-08 07:49 | Outpatient (RCR) | payer MEDICARE, OTHER, SELFPAY ==
--- NOTE | 2022-06-16 09:14 | PM.IMHP ---
H&P: HPI History of Present Illness Date/Time: 06/16/22 09:14 Chief Complaint: Left diabetic foot ulcer Narrative: 71-year-old woman who returns to the [facility] for evaluation left diabetic foot ulcer. Patient currently using shoes with custom inserts and a dressing. Changing dressing daily. She has noted worsening of the wound. 5/10 pain noted with weight-bearing. Diminished sensation and movement through the toes. Review of Systems Constitutional: Constitutional: Reports no additional constitutional complaints, Denies chills, Denies fatigue, Denies fever(s), Denies headache(s) and Denies weakness Eyes: Eyes: Denies change in vision ENT: Reports Normal hearing present and Denies headache(s) Cardiovascular: Cardiovascular: Denies chest pain and Denies dyspnea Respiratory: Respiratory: Denies cough, Denies dyspnea and Denies wheezing Gastrointestinal: Gastrointestinal: Denies constipation, Denies diarrhea, Denies nausea and Denies vomiting Genitourinary: Genitourinary: Denies hematuria, Denies dysuria and Denies urinary urgency Musculoskeletal: Musculoskeletal: Reports as per HPI, Denies numbness and Denies tingling Integumentary/Breasts: Skin/Breast: Reports as per HPI Neurologic: Reports as per HPI, Reports Normal hearing present, Denies headache(s), Denies numbness, Denies tingling and Denies weakness Psychiatric: Psychiatric: Reports no additional psychiatric complaints Endocrine: Endocrine: Reports no additional endocrine complaints and Denies fatigue Hematologic/Lymphatic: Hematologic/Lymphatic: Reports no additional hematologic/lymphatic complaints Allergic/Immunologic: Allergic/Immunologic: Reports no additional allergic/immunologic complaints and Denies wheezing PMFSH Past Medical History Medical History Chronic renal insufficiency, stage III (moderate) Coronary artery disease involving autologous artery coronary bypass graft Diabetes mellitus Hyperlipidemia associated with type 2 diabetes mellitus Hypertension associated with diabetes Iron deficiency anemia Ischemic cardiomyopathy Paroxysmal atrial fibrillation Vitamin B12 deficiency Vitamin D deficiency Surgical History Surgical History Hx of CABG S/P OBDULIO-BSO Family History Family History Other Diabetes mellitus Family history of arthritis Hypertension Social History Social History Smoking status: Never smoker Second hand tobacco smoke exposure: No Alcohol intake: never Substance use: never Substance use type: does not use Gender identity (if verbalized by the patient): Female Sexual Orientation (if Verbalized by the Patient): Straight or Heterosexual Spiritual care concerns: No Agree to blood products: Yes Meds Home Medications and Allergies Home Medications Medication Instructions Recorded Confirmed Type aspirin 81 mg tablet,delayed 81 mg PO DAILY 10/10/19 05/22/22 History release (Adult Low Dose Aspirin) cholecalciferol (vitamin D3) 125 5,000 unit PO DAILY 10/10/19 05/22/22 History mcg (5,000 unit) capsule blood-glucose meter (Accu-Chek #1 ea 05/26/21 05/22/22 Rx Cassandra Plus Meter) lancets 32 gauge #300 ea 05/26/21 05/22/22 Rx blood sugar diagnostic (Accu-Chek #300 ea 09/23/21 05/22/22 Rx Cassandra Plus test strips) mecobalamin (vitamin B12) 5,000 5,000 mcg PO DAILY 09/23/21 05/22/22 History mcg lozenge lancets (Accu-Chek Softclix #100 ea 10/07/21 05/22/22 Rx Lancets) ferrous sulfate 325 mg (65 mg 325 mg PO BID 12/29/21 05/22/22 History iron) tablet insulin aspart U-100 100 unit/mL 5 unit subcut TID 12/29/21 05/22/22 History (3 mL) subcutaneous pen (Novolog Flexpen U-100 Insulin aspart) fluticasone propionate 50 1 spray
--- NOTE | 2022-06-16 09:19 | W.PM.PROC2 ---
Procedure Note - Detailed Date of Procedure 06/16/22 Pre-op Diagnosis diabetic foot ulcer E10.621 & L97.412 Post-op Diagnosis Same Procedure Performed Debridement left diabetic foot ulcer skin, subcutaneous tissue, muscle 12 sq cm Surgeon Hugh Braga MD Anesthesia None Indications 71-year-old diabetic with foot ulcer. Necrotic skin indicated for debridement. Description of Procedure Informed consent given. Alcohol prep solution. Fifteen blade knife used to sharply excise skin, subcutaneous tissue and muscle from the left plantar ulcer. Ulcer measuring 2 x 3 cm. Hemostasis with silver nitrate and pressure. Sterile dressing applied. Estimated Blood Loss 1 Packing Yes Pathology None sent Complications None Condition Stable Disposition Other ( home. Under self-care)
--- NOTE | 2022-06-23 09:19 | PM.IMHP ---
H&P: HPI History of Present Illness Date/Time: 06/23/22 09:19 Chief Complaint: Left diabetic foot ulcer Narrative: 71-year-old woman who returns to the [facility] for evaluation left diabetic foot ulcer. Patient currently using shoes with custom inserts and a dressing. Changing dressing daily. She has noted worsening of the wound. 5/10 pain noted with weight-bearing. Diminished sensation and movement through the toes. Review of Systems Constitutional: Constitutional: Reports no additional constitutional complaints, Denies chills, Denies fatigue, Denies fever(s), Denies headache(s) and Denies weakness Eyes: Eyes: Denies change in vision ENT: Reports Normal hearing present and Denies headache(s) Cardiovascular: Cardiovascular: Denies chest pain and Denies dyspnea Respiratory: Respiratory: Denies cough, Denies dyspnea and Denies wheezing Gastrointestinal: Gastrointestinal: Denies constipation, Denies diarrhea, Denies nausea and Denies vomiting Genitourinary: Genitourinary: Denies hematuria, Denies dysuria and Denies urinary urgency Musculoskeletal: Musculoskeletal: Reports as per HPI, Denies numbness and Denies tingling Integumentary/Breasts: Skin/Breast: Reports as per HPI Neurologic: Reports as per HPI, Reports Normal hearing present, Denies headache(s), Denies numbness, Denies tingling and Denies weakness Psychiatric: Psychiatric: Reports no additional psychiatric complaints Endocrine: Endocrine: Reports no additional endocrine complaints and Denies fatigue Hematologic/Lymphatic: Hematologic/Lymphatic: Reports no additional hematologic/lymphatic complaints Allergic/Immunologic: Allergic/Immunologic: Reports no additional allergic/immunologic complaints and Denies wheezing PMFSH Past Medical History Medical History Chronic renal insufficiency, stage III (moderate) Coronary artery disease involving autologous artery coronary bypass graft Diabetes mellitus Hyperlipidemia associated with type 2 diabetes mellitus Hypertension associated with diabetes Iron deficiency anemia Ischemic cardiomyopathy Paroxysmal atrial fibrillation Vitamin B12 deficiency Vitamin D deficiency Surgical History Surgical History Hx of CABG S/P OBDULIO-BSO Family History Family History Other Diabetes mellitus Family history of arthritis Hypertension Social History Social History Smoking status: Never smoker Second hand tobacco smoke exposure: No Alcohol intake: never Substance use: never Substance use type: does not use Gender identity (if verbalized by the patient): Female Sexual Orientation (if Verbalized by the Patient): Straight or Heterosexual Spiritual care concerns: No Agree to blood products: Yes Meds Home Medications and Allergies Home Medications Medication Instructions Recorded Confirmed Type aspirin 81 mg tablet,delayed 81 mg PO DAILY 10/10/19 05/22/22 History release (Adult Low Dose Aspirin) cholecalciferol (vitamin D3) 125 5,000 unit PO DAILY 10/10/19 05/22/22 History mcg (5,000 unit) capsule blood-glucose meter (Accu-Chek #1 ea 05/26/21 05/22/22 Rx Cassandra Plus Meter) lancets 32 gauge #300 ea 05/26/21 05/22/22 Rx blood sugar diagnostic (Accu-Chek #300 ea 09/23/21 05/22/22 Rx Cassandra Plus test strips) mecobalamin (vitamin B12) 5,000 5,000 mcg PO DAILY 09/23/21 05/22/22 History mcg lozenge lancets (Accu-Chek Softclix #100 ea 10/07/21 05/22/22 Rx Lancets) ferrous sulfate 325 mg (65 mg 325 mg PO BID 12/29/21 05/22/22 History iron) tablet insulin aspart U-100 100 unit/mL 5 unit subcut TID 12/29/21 05/22/22 History (3 mL) subcutaneous pen (Novolog Flexpen U-100 Insulin aspart) fluticasone propionate 50 1 spray intra
--- NOTE | 2022-06-30 08:49 | PM.IMHP ---
H&P: HPI History of Present Illness Date/Time: 06/30/22 08:49 Chief Complaint: Left diabetic foot ulcer Narrative: 71-year-old woman who returns to the [facility] for evaluation left diabetic foot ulcer. Patient underwent TCC cast last week. Tolerated well throughout the week. No issues. Review of Systems Constitutional: Constitutional: Reports no additional constitutional complaints, Denies chills, Denies fatigue, Denies fever(s), Denies headache(s) and Denies weakness Eyes: Eyes: Denies change in vision ENT: Reports Normal hearing present and Denies headache(s) Cardiovascular: Cardiovascular: Denies chest pain and Denies dyspnea Respiratory: Respiratory: Denies cough, Denies dyspnea and Denies wheezing Gastrointestinal: Gastrointestinal: Denies constipation, Denies diarrhea, Denies nausea and Denies vomiting Genitourinary: Genitourinary: Denies hematuria, Denies dysuria and Denies urinary urgency Musculoskeletal: Musculoskeletal: Reports as per HPI, Denies numbness and Denies tingling Integumentary/Breasts: Skin/Breast: Reports as per HPI Neurologic: Reports as per HPI, Reports Normal hearing present, Denies headache(s), Denies numbness, Denies tingling and Denies weakness Psychiatric: Psychiatric: Reports no additional psychiatric complaints Endocrine: Endocrine: Reports no additional endocrine complaints and Denies fatigue Hematologic/Lymphatic: Hematologic/Lymphatic: Reports no additional hematologic/lymphatic complaints Allergic/Immunologic: Allergic/Immunologic: Reports no additional allergic/immunologic complaints and Denies wheezing PMFSH Past Medical History Medical History (Updated 06/30/22 @ 08:52 by VALENTINA Barrett) Chronic renal insufficiency, stage III (moderate) Coronary artery disease involving autologous artery coronary bypass graft Diabetes mellitus Hyperlipidemia associated with type 2 diabetes mellitus Hypertension associated with diabetes Iron deficiency anemia Ischemic cardiomyopathy Paroxysmal atrial fibrillation Vitamin B12 deficiency Vitamin D deficiency Surgical History Surgical History Hx of CABG S/P OBDULIO-BSO Family History Family History Other Diabetes mellitus Family history of arthritis Hypertension Social History Social History Smoking status: Never smoker Second hand tobacco smoke exposure: No Alcohol intake: never Substance use: never Substance use type: does not use Gender identity (if verbalized by the patient): Female Sexual Orientation (if Verbalized by the Patient): Straight or Heterosexual Spiritual care concerns: No Agree to blood products: Yes Meds Home Medications and Allergies Home Medications Medication Instructions Recorded Confirmed Type aspirin 81 mg tablet,delayed 81 mg PO DAILY 10/10/19 05/22/22 History release (Adult Low Dose Aspirin) cholecalciferol (vitamin D3) 125 5,000 unit PO DAILY 10/10/19 05/22/22 History mcg (5,000 unit) capsule blood-glucose meter (Accu-Chek #1 ea 05/26/21 05/22/22 Rx Cassandra Plus Meter) lancets 32 gauge #300 ea 05/26/21 05/22/22 Rx blood sugar diagnostic (Accu-Chek #300 ea 09/23/21 05/22/22 Rx Cassandra Plus test strips) mecobalamin (vitamin B12) 5,000 5,000 mcg PO DAILY 09/23/21 05/22/22 History mcg lozenge lancets (Accu-Chek Softclix #100 ea 10/07/21 05/22/22 Rx Lancets) ferrous sulfate 325 mg (65 mg 325 mg PO BID 12/29/21 05/22/22 History iron) tablet insulin aspart U-100 100 unit/mL 5 unit subcut TID 12/29/21 05/22/22 History (3 mL) subcutaneous pen (Novolog Flexpen U-100 Insulin aspart) fluticasone propionate 50 1 spray intranasal DAILY #15.8 mL 02/01/22 05/22/22 Rx mcg/actuation nasal spray,suspension dabigatran etexilate 150 mg 150 mg PO BID #180 ca
--- NOTE | 2022-07-07 09:07 | PM.IMHP ---
H&P: HPI History of Present Illness Date/Time: 07/07/22 09:07 Chief Complaint: Left diabetic foot ulcer Narrative: 72-year-old female returns to the [facility] for evaluation left diabetic foot ulcer. No new concerns. Denies signs of infection. Review of Systems Constitutional: Constitutional: Reports no additional constitutional complaints, Denies chills, Denies fatigue, Denies fever(s), Denies headache(s) and Denies weakness Eyes: Eyes: Denies change in vision ENT: Reports Normal hearing present and Denies headache(s) Cardiovascular: Cardiovascular: Denies chest pain and Denies dyspnea Respiratory: Respiratory: Denies cough, Denies dyspnea and Denies wheezing Gastrointestinal: Gastrointestinal: Denies constipation, Denies diarrhea, Denies nausea and Denies vomiting Genitourinary: Genitourinary: Denies hematuria, Denies dysuria and Denies urinary urgency Musculoskeletal: Musculoskeletal: Reports as per HPI, Denies numbness and Denies tingling Integumentary/Breasts: Skin/Breast: Reports as per HPI Neurologic: Reports as per HPI, Reports Normal hearing present, Denies headache(s), Denies numbness, Denies tingling and Denies weakness Psychiatric: Psychiatric: Reports no additional psychiatric complaints Endocrine: Endocrine: Reports no additional endocrine complaints and Denies fatigue Hematologic/Lymphatic: Hematologic/Lymphatic: Reports no additional hematologic/lymphatic complaints Allergic/Immunologic: Allergic/Immunologic: Reports no additional allergic/immunologic complaints and Denies wheezing PMFSH Past Medical History Medical History Chronic renal insufficiency, stage III (moderate) Coronary artery disease involving autologous artery coronary bypass graft Diabetes mellitus Hyperlipidemia associated with type 2 diabetes mellitus Hypertension associated with diabetes Iron deficiency anemia Ischemic cardiomyopathy Paroxysmal atrial fibrillation Vitamin B12 deficiency Vitamin D deficiency Surgical History Surgical History Hx of CABG S/P OBDULIO-BSO Family History Family History Other Diabetes mellitus Family history of arthritis Hypertension Social History Social History Smoking status: Never smoker Second hand tobacco smoke exposure: No Alcohol intake: never Substance use: never Substance use type: does not use Gender identity (if verbalized by the patient): Female Sexual Orientation (if Verbalized by the Patient): Straight or Heterosexual Spiritual care concerns: No Agree to blood products: Yes Meds Home Medications and Allergies Home Medications Medication Instructions Recorded Confirmed Type aspirin 81 mg tablet,delayed 81 mg PO DAILY 10/10/19 05/22/22 History release (Adult Low Dose Aspirin) cholecalciferol (vitamin D3) 125 5,000 unit PO DAILY 10/10/19 05/22/22 History mcg (5,000 unit) capsule blood-glucose meter (Accu-Chek #1 ea 05/26/21 05/22/22 Rx Cassandra Plus Meter) lancets 32 gauge #300 ea 05/26/21 05/22/22 Rx blood sugar diagnostic (Accu-Chek #300 ea 09/23/21 05/22/22 Rx Cassandra Plus test strips) mecobalamin (vitamin B12) 5,000 5,000 mcg PO DAILY 09/23/21 05/22/22 History mcg lozenge lancets (Accu-Chek Softclix #100 ea 10/07/21 05/22/22 Rx Lancets) ferrous sulfate 325 mg (65 mg 325 mg PO BID 12/29/21 05/22/22 History iron) tablet insulin aspart U-100 100 unit/mL 5 unit subcut TID 12/29/21 05/22/22 History (3 mL) subcutaneous pen (Novolog Flexpen U-100 Insulin aspart) fluticasone propionate 50 1 spray intranasal DAILY #15.8 mL 02/01/22 05/22/22 Rx mcg/actuation nasal spray,suspension dabigatran etexilate 150 mg 150 mg PO BID #180 caps 04/20/22 05/22/22 Rx capsule (Pradaxa)
--- NOTE | 2022-07-21 08:54 | PM.IMHP ---
H&P: HPI History of Present Illness Date/Time: 07/21/22 08:54 Chief Complaint: Left diabetic foot ulcer Narrative: 72-year-old female returns to the [facility] for evaluation left diabetic foot ulcer. No new concerns. Denies signs of infection. Ongoing open ulcer plantar aspect left foot for the past year and a half. She tried total contact casting for a week with some mild improvement. She is currently using fracture boot with daily dressing changes. She has not really noted any improvement or healing. Review of Systems Constitutional: Constitutional: Reports no additional constitutional complaints, Denies chills, Denies fatigue, Denies fever(s), Denies headache(s) and Denies weakness Eyes: Eyes: Denies change in vision ENT: Reports Normal hearing present and Denies headache(s) Cardiovascular: Cardiovascular: Denies chest pain and Denies dyspnea Respiratory: Respiratory: Denies cough, Denies dyspnea and Denies wheezing Gastrointestinal: Gastrointestinal: Denies constipation, Denies diarrhea, Denies nausea and Denies vomiting Genitourinary: Genitourinary: Denies hematuria, Denies dysuria and Denies urinary urgency Musculoskeletal: Musculoskeletal: Reports as per HPI, Denies numbness and Denies tingling Integumentary/Breasts: Skin/Breast: Reports as per HPI Neurologic: Reports as per HPI, Reports Normal hearing present, Denies headache(s), Denies numbness, Denies tingling and Denies weakness Psychiatric: Psychiatric: Reports no additional psychiatric complaints Endocrine: Endocrine: Reports no additional endocrine complaints and Denies fatigue Hematologic/Lymphatic: Hematologic/Lymphatic: Reports no additional hematologic/lymphatic complaints Allergic/Immunologic: Allergic/Immunologic: Reports no additional allergic/immunologic complaints and Denies wheezing PMFSH Past Medical History Medical History (Updated 07/21/22 @ 08:58 by Hugh Braga MD) Chronic renal insufficiency, stage III (moderate) Coronary artery disease involving autologous artery coronary bypass graft Diabetes mellitus Exostosis of left foot Hyperlipidemia associated with type 2 diabetes mellitus Hypertension associated with diabetes Iron deficiency anemia Ischemic cardiomyopathy Paroxysmal atrial fibrillation Vitamin B12 deficiency Vitamin D deficiency Surgical History Surgical History Hx of CABG S/P OBDULIO-BSO Family History Family History Other Diabetes mellitus Family history of arthritis Hypertension Social History Social History Smoking status: Never smoker Second hand tobacco smoke exposure: No Alcohol intake: never Substance use: never Substance use type: does not use Gender identity (if verbalized by the patient): Female Sexual Orientation (if Verbalized by the Patient): Straight or Heterosexual Spiritual care concerns: No Agree to blood products: Yes Meds Home Medications and Allergies Home Medications Medication Instructions Recorded Confirmed Type aspirin 81 mg tablet,delayed 81 mg PO DAILY 10/10/19 07/17/22 History release (Adult Low Dose Aspirin) cholecalciferol (vitamin D3) 125 5,000 unit PO DAILY 10/10/19 07/17/22 History mcg (5,000 unit) capsule blood-glucose meter (Accu-Chek #1 ea 05/26/21 05/22/22 Rx Cassandra Plus Meter) lancets 32 gauge #300 ea 05/26/21 05/22/22 Rx blood sugar diagnostic (Accu-Chek #300 ea 09/23/21 05/22/22 Rx Cassandra Plus test strips) mecobalamin (vitamin B12) 5,000 5,000 mcg PO DAILY 09/23/21 07/17/22 History mcg lozenge lancets (Accu-Chek Softclix #100 ea 10/07/21 05/22/22 Rx Lancets) ferrous sulfate 325 mg (65 mg 325 mg PO BID 12/29/21 07/17/22 History iron) tablet insulin aspart U-100 100 unit/mL 5 unit subcut TID 12/29/21 07/17/22 History (
--- NOTE | 2022-07-28 09:19 | PM.PNORT ---
Progress Note: A&P Assessment and Plan (1) Exostosis of left foot: Code(s): M89.8X7 - Other specified disorders of bone, ankle and foot Status: Acute Assessment and Plan: 5 days post op. Incision well approximated. Graft on plantar foot incorporating well. TCC changed today. Follow up in 1 week. Sutures to be removed at 3 weeks post op. (2) Diabetic foot ulcer: Qualifiers: Diabetes mellitus type: type 1 Diabetic foot ulcer location: midfoot Laterality: left Non-pressure ulcer stage: with bone involvement without evidence of necrosis Qualified Code(s): E10.621 - Type 1 diabetes mellitus with foot ulcer; L97.426 - Non-pressure chronic ulcer of left heel and midfoot with bone involvement without evidence of necrosis Code(s): E11.621 - Type 2 diabetes mellitus with foot ulcer; L97.509 - Non-pressure chronic ulcer of other part of unspecified foot with unspecified severity Status: Acute Subjective Subjective Date/Time Seen: 07/28/22 09:19 Post Op day: 5 Interval history: 5 days s/p Excision of exostosis left foot, excisional debridement of DFU and graft placement. Tolerating TCC well. No new concerns. Review of Systems Constitutional: Constitutional: Reports no additional constitutional complaints, Denies chills, Denies fatigue, Denies fever(s), Denies headache(s) and Denies weakness Eyes: Eyes: Denies change in vision ENT: Reports Normal hearing present and Denies headache(s) Cardiovascular: Cardiovascular: Denies chest pain and Denies dyspnea Respiratory: Respiratory: Denies cough, Denies dyspnea and Denies wheezing Gastrointestinal: Gastrointestinal: Denies constipation, Denies diarrhea, Denies nausea and Denies vomiting Genitourinary: Genitourinary: Denies hematuria, Denies dysuria and Denies urinary urgency Musculoskeletal: Musculoskeletal: Reports as per HPI, Denies numbness and Denies tingling Integumentary/Breasts: Skin/Breast: Reports as per HPI Neurologic: Reports as per HPI, Reports Normal hearing present, Denies headache(s), Denies numbness, Denies tingling and Denies weakness Psychiatric: Psychiatric: Reports no additional psychiatric complaints Endocrine: Endocrine: Reports no additional endocrine complaints and Denies fatigue Hematologic/Lymphatic: Hematologic/Lymphatic: Reports no additional hematologic/lymphatic complaints Allergic/Immunologic: Allergic/Immunologic: Reports no additional allergic/immunologic complaints and Denies wheezing Exam Const: General: comfortable and no acute distress HENMT: Mouth: Yes moist mucous membranes Eyes: General: appearance normal, both eyes and all related structures Neck: Neck: supple and no JVD Resp: Effort & Inspection: normal respiratory effort Cardio: Rate: regular rate Rhythm: regular rhythm GI: Inspection: non-distended Neuro: General: gait normal Cranial nerves: Yes Normal hearing present Cognition (Neuro): normal cognition Speech: normal speech Extrem: Right upper extremity: normal to inspection Left upper extremity: normal to inspection Right lower extremity: foot Details: motor-sensory exam Details: two point discrimination abnormal Location: in all toes and light-touch abnormal Location: in all toes Left lower extremity: foot Details: toes with normal ROM, no edema, vascular exam Details: dorsalis pedis pulse present and abnormal capillary refill Location: of all toes and motor-sensory exam two point discrimination abnormal in all toes and light-touch abnormal in all toes; no unusual warmth and no ecchymosis Other: Wound on the plantar aspect of the left foot covered with graft, incorporating well. No signs of infection. Surrounding tissue viable. Callus/pressure formation on the plantar aspect of the 4th metatarsal head unchanged. Incision lateral foot, well approximated. Psych: Mental Status: mental status grossly normal Affect: normal affect Objective Data Meds/Results Medications:
--- NOTE | 2022-08-04 08:52 | PM.PNORT ---
Progress Note: A&P Assessment and Plan (1) Exostosis of left foot: Code(s): M89.8X7 - Other specified disorders of bone, ankle and foot Status: Acute Assessment and Plan: 1 week, 5 days post op. Incision well approximated lateral foot. Graft on plantar foot incorporating well, sutures no longer holding. Removed. TCC changed today. Follow up in 1 week. Sutures to be removed at 3 weeks post op on lateral foot. (2) Diabetic foot ulcer: Qualifiers: Diabetes mellitus type: type 1 Diabetic foot ulcer location: midfoot Laterality: left Non-pressure ulcer stage: with bone involvement without evidence of necrosis Qualified Code(s): E10.621 - Type 1 diabetes mellitus with foot ulcer; L97.426 - Non-pressure chronic ulcer of left heel and midfoot with bone involvement without evidence of necrosis Code(s): E11.621 - Type 2 diabetes mellitus with foot ulcer; L97.509 - Non-pressure chronic ulcer of other part of unspecified foot with unspecified severity Status: Acute Subjective Subjective Date/Time Seen: 08/04/22 08:52 Interval history: 1 week, 5 days s/p Excision of exostosis left foot, excisional debridement of DFU and graft placement. Tolerating TCC well. No new concerns. Review of Systems Constitutional: Constitutional: Reports no additional constitutional complaints, Denies chills, Denies fatigue, Denies fever(s), Denies headache(s) and Denies weakness Eyes: Eyes: Denies change in vision ENT: Reports Normal hearing present and Denies headache(s) Cardiovascular: Cardiovascular: Denies chest pain and Denies dyspnea Respiratory: Respiratory: Denies cough, Denies dyspnea and Denies wheezing Gastrointestinal: Gastrointestinal: Denies constipation, Denies diarrhea, Denies nausea and Denies vomiting Genitourinary: Genitourinary: Denies hematuria, Denies dysuria and Denies urinary urgency Musculoskeletal: Musculoskeletal: Reports as per HPI, Denies numbness and Denies tingling Integumentary/Breasts: Skin/Breast: Reports as per HPI Neurologic: Reports as per HPI, Reports Normal hearing present, Denies headache(s), Denies numbness, Denies tingling and Denies weakness Psychiatric: Psychiatric: Reports no additional psychiatric complaints Endocrine: Endocrine: Reports no additional endocrine complaints and Denies fatigue Hematologic/Lymphatic: Hematologic/Lymphatic: Reports no additional hematologic/lymphatic complaints Allergic/Immunologic: Allergic/Immunologic: Reports no additional allergic/immunologic complaints and Denies wheezing Exam Const: General: comfortable and no acute distress HENMT: Mouth: Yes moist mucous membranes Eyes: General: appearance normal, both eyes and all related structures Neck: Neck: supple and no JVD Resp: Effort & Inspection: normal respiratory effort Cardio: Rate: regular rate Rhythm: regular rhythm GI: Inspection: non-distended Neuro: General: gait normal Cranial nerves: Yes Normal hearing present Cognition (Neuro): normal cognition Speech: normal speech Extrem: Right upper extremity: normal to inspection Left upper extremity: normal to inspection Right lower extremity: foot Details: motor-sensory exam Details: two point discrimination abnormal Location: in all toes and light-touch abnormal Location: in all toes Left lower extremity: foot Details: toes with normal ROM, no edema, vascular exam Details: dorsalis pedis pulse present and abnormal capillary refill Location: of all toes and motor-sensory exam two point discrimination abnormal in all toes and light-touch abnormal in all toes; no unusual warmth and no ecchymosis Other: Wound on the plantar aspect of the left foot with graft, incorporating well. No signs of infection. Surrounding tissue viable. Callus/pressure formation on the plantar aspect of the 4th metatarsal head unchanged. Incision lateral foot, well approximated. Psych: Mental Status: mental status grossly normal Affect: norm
--- NOTE | 2022-08-11 09:14 | PM.PNORT ---
Progress Note: A&P Assessment and Plan (1) Exostosis of left foot: Code(s): M89.8X7 - Other specified disorders of bone, ankle and foot Status: Acute Assessment and Plan: 2 weeks, 5 days post op. Incision well approximated lateral foot, sutures removed. Graft on plantar foot incorporating well, sutures no longer holding. Bone palpable. Recommended graft application with Amnioexcel. TCC changed today. Follow up in 1 week. Sutures to be removed at 3 weeks post op on lateral foot. (2) Diabetic foot ulcer: Qualifiers: Diabetes mellitus type: type 1 Diabetic foot ulcer location: midfoot Laterality: left Non-pressure ulcer stage: with bone involvement without evidence of necrosis Qualified Code(s): E10.621 - Type 1 diabetes mellitus with foot ulcer; L97.426 - Non-pressure chronic ulcer of left heel and midfoot with bone involvement without evidence of necrosis Code(s): E11.621 - Type 2 diabetes mellitus with foot ulcer; L97.509 - Non-pressure chronic ulcer of other part of unspecified foot with unspecified severity Status: Acute Subjective Subjective Date/Time Seen: 08/11/22 09:14 Interval history: 2 weeks, 5 days s/p Excision of exostosis left foot, excisional debridement of DFU and graft placement. Tolerating TCC well. No new concerns. Review of Systems Constitutional: Constitutional: Reports no additional constitutional complaints, Denies chills, Denies fatigue, Denies fever(s), Denies headache(s) and Denies weakness Eyes: Eyes: Denies change in vision ENT: Reports Normal hearing present and Denies headache(s) Cardiovascular: Cardiovascular: Denies chest pain and Denies dyspnea Respiratory: Respiratory: Denies cough, Denies dyspnea and Denies wheezing Gastrointestinal: Gastrointestinal: Denies constipation, Denies diarrhea, Denies nausea and Denies vomiting Genitourinary: Genitourinary: Denies hematuria, Denies dysuria and Denies urinary urgency Musculoskeletal: Musculoskeletal: Reports as per HPI, Denies numbness and Denies tingling Integumentary/Breasts: Skin/Breast: Reports as per HPI Neurologic: Reports as per HPI, Reports Normal hearing present, Denies headache(s), Denies numbness, Denies tingling and Denies weakness Psychiatric: Psychiatric: Reports no additional psychiatric complaints Endocrine: Endocrine: Reports no additional endocrine complaints and Denies fatigue Hematologic/Lymphatic: Hematologic/Lymphatic: Reports no additional hematologic/lymphatic complaints Allergic/Immunologic: Allergic/Immunologic: Reports no additional allergic/immunologic complaints and Denies wheezing Exam Const: General: comfortable and no acute distress HENMT: Mouth: Yes moist mucous membranes Eyes: General: appearance normal, both eyes and all related structures Neck: Neck: supple and no JVD Resp: Effort & Inspection: normal respiratory effort Cardio: Rate: regular rate Rhythm: regular rhythm GI: Inspection: non-distended Neuro: General: gait normal Cranial nerves: Yes Normal hearing present Cognition (Neuro): normal cognition Speech: normal speech Extrem: Right upper extremity: normal to inspection Left upper extremity: normal to inspection Right lower extremity: foot Details: motor-sensory exam Details: two point discrimination abnormal Location: in all toes and light-touch abnormal Location: in all toes Left lower extremity: foot Details: toes with normal ROM, no edema, vascular exam Details: dorsalis pedis pulse present and abnormal capillary refill Location: of all toes and motor-sensory exam two point discrimination abnormal in all toes and light-touch abnormal in all toes; no unusual warmth and no ecchymosis Other: Wound on the plantar aspect of the left foot with graft, incorporating well. Bone palpable. No signs of infection. Surrounding tissue viable. Callus/pressure formation on the plantar aspect of the 4th metatarsal head unchanged. Incision lateral foot
--- NOTE | 2022-08-18 09:08 | PM.PNORT ---
Progress Note: A&P Assessment and Plan (1) Diabetic foot ulcer: Qualifiers: Diabetes mellitus type: type 1 Diabetic foot ulcer location: midfoot Laterality: left Non-pressure ulcer stage: with bone involvement without evidence of necrosis Qualified Code(s): E10.621 - Type 1 diabetes mellitus with foot ulcer; L97.426 - Non-pressure chronic ulcer of left heel and midfoot with bone involvement without evidence of necrosis Code(s): E11.621 - Type 2 diabetes mellitus with foot ulcer; L97.509 - Non-pressure chronic ulcer of other part of unspecified foot with unspecified severity Status: Acute Assessment and Plan: Four weeks status post left foot debridement and removal of exostosis with grafting. Plantar ulcer and graft site incorporating well and appear better healed today. Incision site healed. New area redness and swelling over the medial ankle which is concerning. Patient feels like the cast was rubbing there and causing irritation. Recommend admit to hospital with workup and antibiotics. Patient has declined. She has agreed to stop the cast at this time and return to the fracture boot. Daily dressing changes with foam, silver gel and Danae. Close observation of the area of redness. If anything worsens she is to notify office and wound clinic immediately. Follow-up in 3 days for close observation. Will start on oral antibiotics. (2) Exostosis of left foot: Code(s): M89.8X7 - Other specified disorders of bone, ankle and foot Status: Acute Subjective Subjective Date/Time Seen: 08/18/22 09:08 Post Op day: 26 days Principal diagnosis: Left diabetic foot ulcer Interval history: 3weeks, 5 days s/p Excision of exostosis left foot, excisional debridement of DFU and graft placement. Not tolerating TCC well. complains of increased pain left foot Over the past several days. Difficulty with mobility. Exam Const: General: comfortable and no acute distress Neck: Neck: supple and no JVD Resp: Effort & Inspection: normal respiratory effort Cardio: Rate: regular rate Rhythm: regular rhythm Extrem: Right upper extremity: normal to inspection Left upper extremity: normal to inspection Right lower extremity: foot Details: motor-sensory exam Details: two point discrimination abnormal Location: in all toes and light-touch abnormal Location: in all toes Left lower extremity: foot Details: toes with normal ROM, no edema, vascular exam Details: dorsalis pedis pulse present and abnormal capillary refill Location: of all toes and motor-sensory exam two point discrimination abnormal in all toes and light-touch abnormal in all toes; no unusual warmth and no ecchymosis Other: Wound on the plantar aspect of the left foot with graft, incorporating well. Bone palpable but improved. No signs of infection of ulcer. Ulcer dimensions 1 x 1.1 cm and 0.9 cm depth to bone. Surrounding tissue viable. Callus/pressure formation on the plantar aspect of the 4th metatarsal head unchanged. Incision lateral foot, well approximated. Sutures removed. new redness and swelling over the anterior and medial ankle, minimal fluctuance. Redness partially resolves with elevation. Tender to palpation. Psych: Mental Status: mental status grossly normal Affect: normal affect Objective Data Meds/Results Medications: Active Medications Generic Name Dose Route Start Last Admin Trade Name Freq PRN Reason Stop Dose Admin Silver Nitrate 1 applic 06/16/22 12:28 Silvergel (Elta) 45 Ml TOPICAL 09/16/22 23:55 PRN PRN Wound Care Wound Care/Dressing Products 1 each 06/16/22 12:29 Foam Bandage (Mepilex 4x4) Bandage TOPICAL 09/16/22 23:55 PRN PRN Wound Care Wound Care/Dressing Products 1 patch 06/23/22 10:01 Mepilex Transfer Drsg 6x8 TOPICAL 09/22/22 23:55 PRN PRN Wound Care
--- NOTE | 2022-09-08 09:48 | PM.PNORT ---
Progress Note: A&P Assessment and Plan (1) Osteomyelitis of foot, left, acute: Code(s): M86.172 - Other acute osteomyelitis, left ankle and foot Status: Acute Assessment and Plan: Patient returns to the [facility] wound clinic from [facility] for reevaluation of the left foot s/p hospitalization. Patient is on IV antibiotics (Cefepime) through October. Left foot showing very little signs of improvement. Toes cool to touch, decreased capillary refill. Condition, nature, etiology and course of natural history discussed. Conservative and operative treatment options reviewed as well as the risks and benefits of each. Discussed likely need for BKA given poor vascular status and poor likelihood to heal current wounds. Discussed surgical treatment in depth. Recommended referral to vascular surgery for second opinion to evaluate potential for healing a BKA. Patient to follow up after vascular appointment in the [facility] [place] wound clinic. Will begin referral process. (2) Peripheral arterial occlusive disease: Code(s): I77.9 - Disorder of arteries and arterioles, unspecified Status: Acute Assessment and Plan: CTA from inpatient hospitalization revealed extensive atherosclerotic disease throughout the arteries of the left lower leg with complete occlusion of the majority of the peroneal artery which reconstitutes distally by collaterals and multifocal moderate to severe stenosis at the left popliteal artery and moderate stenosis along the anterior tibial and posterior tibial arteries as well as the tibioperoneal trunk. Patient would like to consider a left BKA. Recommended referral to vascular for initial workup and second opinion. If no available vascular treatment preoperatively, Dr. Braga to make surgical decision. (3) Osteomyelitis: Code(s): M86.9 - Osteomyelitis, unspecified Status: Acute (4) Abscess of left foot: Code(s): L02.612 - Cutaneous abscess of left foot Status: Acute (5) CHF (congestive heart failure): Code(s): I50.9 - Heart failure, unspecified Status: Acute Subjective Subjective Date/Time Seen: 09/08/22 09:48 Post Op day: 2 weeks Interval history: 2 weeks s/p left foot excision of osteomyelitis, cuboid; excisional debridement of diabetic foot ulcer to muscle layer 1 x 1.5 cm. Patient was discharged from [facility] to [facility]. She has been on IV antibiotics BID. She has also still had a wound VAC at the [facility]. She denies fever, chills, night sweats, nausea, vomiting or diarrhea. She has concerns today about the mcc viability of her left foot. She would like to further consider and discuss amputation. Review of Systems Constitutional: Constitutional: Reports no additional constitutional complaints, Denies chills, Denies fatigue, Denies fever(s), Denies headache(s) and Denies weakness Eyes: Eyes: Denies change in vision ENT: Reports Normal hearing present and Denies headache(s) Cardiovascular: Cardiovascular: Denies chest pain and Denies dyspnea Respiratory: Respiratory: Denies cough, Denies dyspnea and Denies wheezing Gastrointestinal: Gastrointestinal: Denies constipation, Denies diarrhea, Denies nausea and Denies vomiting Genitourinary: Genitourinary: Denies hematuria, Denies dysuria and Denies urinary urgency Musculoskeletal: Musculoskeletal: Reports as per HPI, Denies numbness and Denies tingling Integumentary/Breasts: Skin/Breast: Reports as per HPI Neurologic: Reports as per HPI, Reports Normal hearing present, Denies headache(s), Denies numbness, Denies tingling and Denies weakness Psychiatric: Psychiatric: Reports no additional psychiatric complaints Endocrine: Endocrine: Reports no additional endocrine complaints and Denies fatigue Hematologic/Lymphatic: Hematologic/Lymphatic: Reports no additional hematologic/lymphatic complaints Allergic/Immunologic: Allergic/Immunologic: Reports no additional allergic/immunologic complaints and Den
== END 2022-09-14 23:59 | disposition home or self-care (01) ==
LOC: ANHWOC 07:49
PROVIDERS: PCP Family Medicine; Referring Provider Nurse Practitioner Family; Visit Provider Orthopaedic Surgery
DX: E11.621 Type 2 diabetes mellitus with foot ulcer (principal); L97.429 Non-pressure chronic ulcer of left heel and midfoot with unspecified severity
CPT/HCPCS: 11042; 11043; 15275; 29445; 99213; 99214; G0463; Q4137

== ENCOUNTER 2023-02-25 19:10 | Emergency (ER) | payer MEDICARE, OTHER, SELFPAY ==
--- NOTE | ~2023-02-25 | CT_ITS ---
EXAMINATION: CT chest abdomen pelvis wo con DATE: 02/25/2023 20:23 INDICATION: Fall. Hip pain. TECHNIQUE: Computed tomography (CT) of the chest, abdomen, and pelvis was performed without intraveno us contrast. Automated exposure control and iterative reconstruction technique were employed. The dos e-length product was 798.61 mGy-cm. COMPARISON: Chest CT 08/26/2010 FINDINGS: CHEST CT: There are scattered nodules in the lungs measuring up to 12 mm, some of which are cavitary. There are airspace opacities in perihilar left lower lobe, consistent with pneumonia. No pleural effusion. Car diomegaly is noted. There are coronary artery calcifications. There are changes of coronary artery by pass grafting. There are calcifications of aortic valve. No pericardial effusion. There is a left veronika st wall pacer with leads in the right atrium and right ventricle. The central pulmonary arteries are enlarged, consistent with pulmonary arterial hypertension. There is mild mediastinal lymphadenopathy. There is mild thoracic spondylosis. ABDOMEN/PELVIS CT: There are widespread arterial calcifications. The liver is normal. Calcifications in the spleen are c onsistent with old granulomatous disease. The gallbladder, pancreas, adrenal glands, and kidneys are normal. The bladder is decompressed by a Woo catheter. There are no dilated loops of bowel. The cecelia endix is not visualized. There are no pathologically enlarged lymph nodes. There is no free intraperi toneal fluid. There is prominent fat in the inguinal canals that may be hernias. There is enlargement of left iliopsoas muscle with surrounding fat stranding. There is subcutaneous fat stranding in ante rior abdominal wall, likely inflammation. There is mild lumbar spondylosis. IMPRESSION: 1. Airspace opacities in perihilar left lower lobe, consistent with pneumonia. 2. Scattered pulmonary nodules measuring up to 12 mm, some with cavitation, most likely septic emboli . Metastatic disease is less likely. 3. Enlargement of left iliopsoas muscle with adjacent fat stranding suspicious for hematoma or infect ious myositis. 4. Mild mediastinal lymphadenopathy, likely reactive. Reviewed, dictated and finalized at location E. IMPRESSION: 1. Airspace opacities in perihilar left lower lobe, consistent with pneumonia. 2. Scattered pulmonary nodules measuring up to 12 mm, some with cavitation, mos t likely septic emboli. Metastatic disease is less likely. 3. Enlargement of left iliopsoas muscle with adjacent fat stranding suspicious for hematoma or infectious myositis. 4. Mild mediastinal lymphadenopathy, likely reactive.
--- NOTE | ~2023-02-25 | CT_ITS ---
EXAMINATION: CT thoracic lumbar wo con DATE: 02/25/2023 20:15 INDICATION: Back pain. Fall. TECHNIQUE: Computed tomography (CT) of the thoracic and lumbar spine was performed without intravenou s contrast. Automated exposure control and iterative reconstruction technique were employed. The dose -length product was 1840.38 mGy-cm. COMPARISON: None FINDINGS: CT THORACIC SPINE: There is 4 degrees dextrocurvature of thoracic spine. Vertebral body heights are n ormal. There is mildly decreased disc height at many levels. There is multilevel mild facet joint ost eoarthritis. There is mild neural foraminal stenosis on the right at T8-T9. No central canal stenosis . CT LUMBAR SPINE: There is 3 degrees levocurvature of lumbar spine. There is 4 mm anterolisthesis of L 4 on L5. Vertebral body heights are normal. There is mildly decreased disc height at L4-L5. There is asymmetric enlargement of left iliopsoas muscle with increased attenuation and with surrounding fat s tranding. The following disc levels are specifically discussed: L1-L2: The disc is bulging. There is mild bilateral facet joint osteoarthritis. There is mild bilater al neural foraminal stenosis. There is mild central canal stenosis. L2-L3: The disc is bulging. There is severe bilateral facet joint osteoarthritis. There is mild bilat eral neural foraminal stenosis. There is mild central canal stenosis. L3-L4: The disc is bulging. There is severe bilateral facet joint osteoarthritis. There is mild bilat eral neural foraminal stenosis. There is mild central canal stenosis. L4-L5: The disc is bulging. There is severe bilateral facet joint osteoarthritis. There is mild bilat eral neural foraminal stenosis. There is no central canal stenosis. L5-S1: The disc is bulging. There is severe bilateral facet joint osteoarthritis. There is no neural foraminal stenosis. There is no central canal stenosis. IMPRESSION: 1. Mild thoracic spondylosis and mild lumbar spondylosis. 2. Left iliopsoas hematoma without or with superimposed infectious myositis. Reviewed, dictated and finalized at location E.
--- NOTE | ~2023-02-25 | XR_ITS ---
EXAMINATION: XR chest 1V portable DATE: 02/25/2023 20:14 INDICATION: Syncope. TECHNIQUE: A single frontal view of the chest was obtained. COMPARISON: Chest 2 views 05/24/2014 FINDINGS: There are airspace opacities in perihilar left lower lobe. No pleural effusion or pneumotho rax. Cardiomegaly is noted. Median sternotomy wires and mediastinal surgical clips are seen, likely f rom prior coronary artery bypass grafting. There is a left chest wall pacer with leads in the right a trium and right ventricle. IMPRESSION: 1. Airspace opacities in perihilar left lower lobe, consistent with pneumonia. 2. Cardiomegaly. Reviewed, dictated and finalized at location E.
--- NOTE | ~2023-02-25 | CT_ITS ---
EXAMINATION: CT cervical spine wo con DATE: 02/25/2023 20:14 INDICATION: Neck pain. Syncope. TECHNIQUE: Computed tomography (CT) of the cervical spine was performed without intravenous contrast. Automated exposure control and iterative reconstruction technique were employed. The dose-length pro duct was 473.23 mGy-cm. COMPARISON: None FINDINGS: There is a 12 mm cavitary nodule in left lung upper lobe. There are other nodules measuring up to 5 mm. There is 6 degrees dextrocurvature of cervical spine. Vertebral body heights are normal. There is mildly decreased disc height at C3-C4 and severely decreased disc height at C5-C6. The foll owing disc levels are specifically discussed: C2-C3: There is no uncovertebral joint osteoarthritis. There is severe left facet joint osteoarthriti s. There is no neural foraminal stenosis. There is no central canal stenosis. C3-C4: There is no uncovertebral joint osteoarthritis. There is severe left facet joint osteoarthriti s. There is mild left neural foraminal stenosis. There is no central canal stenosis. C4-C5: There is mild bilateral uncovertebral joint osteoarthritis. There is mild right facet joint os teoarthritis. There is no neural foraminal stenosis. There is no central canal stenosis. C5-C6: There is severe bilateral uncovertebral joint osteoarthritis. There is mild bilateral facet deyanira int osteoarthritis. There is mild bilateral neural foraminal stenosis. There is mild central canal st enosis. C6-C7: There is no uncovertebral joint osteoarthritis. There is mild bilateral facet joint osteoarthr itis. There is no neural foraminal stenosis. There is no central canal stenosis. C7-T1: There is no uncovertebral joint osteoarthritis. There is mild bilateral facet joint osteoarthr itis. There is no neural foraminal stenosis. There is no central canal stenosis. IMPRESSION: 1. Pulmonary nodules measuring up to 12 mm in left upper lobe, which may be infection or malignancy. Chest CT is recommended. 2. No fracture. 3. Severe spondylosis at C5-C6 and mild spondylosis at other levels. Reviewed, dictated and finalized at location E. IMPRESSION: 1. Pulmonary nodules measuring up to 12 mm in left upper lobe, which may be inf ection or malignancy. Chest CT is recommended. 2. No fracture. 3. Severe spondylosis at C5-C6 and mild spondylosis at other levels.
--- NOTE | ~2023-02-25 | CT_ITS ---
EXAMINATION: CT brain wo con DATE: 02/25/2023 20:13 INDICATION: Syncope. Neck pain. TECHNIQUE: Computed tomography (CT) of the head was performed without intravenous contrast. The mA wa s adjusted according to patient size. Iterative reconstruction technique was employed. The dose-lengt h product was 681.00 mGy-cm. COMPARISON: Head CT 02/15/2017 FINDINGS: There is diffuse brain volume loss. There are scattered areas of low attenuation in the cer ebral white matter. There is no intracranial hemorrhage, acute infarction, or abnormal intracranial m ass lesion. The ventricles are normal in size. There are likely changes of ocular lens replacement salcedo rgeries. There is mild mucosal thickening in the paranasal sinuses. There are small bilateral mastoid effusions. There are likely changes of ocular lens replacement surgeries. IMPRESSION: 1. Mild nonspecific cerebral white matter disease, which likely represents chronic small vessel ische zhanna disease. Reviewed, dictated and finalized at location E. IMPRESSION: 1. Mild nonspecific cerebral white matter disease, which likely represents waiter/waitress tourist class trish small vessel ischemic disease.
[2023-02-25 19:07] VITALS: BP 110/48; PULSE 94; RESP 19; TEMP 37
[2023-02-25 19:16] LABS: Glucose Point of Care 144 mg/dl (65-105)
--- NOTE | 2023-02-25 19:22 | ED.SYNCOPE ---
HPI - Syncope General Chief Complaint: Arrhythmia/Palpitations Stated Complaint: FALL, L HIP PAIN, RUNS OF V-TACH History of Present Illness HPI narrative: This is a 72-year-old female with reported history of coronary artery disease, CHF, diabetes, brought in by EMS after a fall. The patient states she was in her bathroom, when she suddenly lost consciousness and woke up on the floor. She was reportedly unable to stand for several hours. She complains of right-sided hip pain rated 7/10, described as sharp. EMS reports in route, they noted couplets and a run of V. tach on the monitor and diverted to this facility. Related Data Home Medications Medication Instructions Recorded Confirmed aspirin 81 mg tablet,delayed 81 mg PO DAILY 10/10/19 12/17/22 release (Adult Low Dose Aspirin) cholecalciferol (vitamin D3) 125 5,000 unit PO DAILY 10/10/19 12/17/22 mcg (5,000 unit) capsule ferrous sulfate 325 mg (65 mg 325 mg PO DAILY 12/29/21 12/17/22 iron) tablet fluticasone propionate 50 1 spray intranasal DAILY PRN 07/17/22 12/17/22 mcg/actuation nasal Allergy Symptoms spray,suspension cyanocobalamin (vitamin B-12) 5,000 mcg PO DAILY 08/21/22 12/17/22 5,000 mcg sublingual tablet (Vitamin B-12) dabigatran etexilate 150 mg 150 mg PO QHS 08/21/22 12/17/22 capsule (Pradaxa) furosemide 40 mg tablet 40 mg PO DAILY 08/21/22 12/17/22 levothyroxine 50 mcg tablet 50 mcg PO DAILY 08/21/22 12/17/22 metoprolol succinate 100 mg 100 mg PO DAILY 08/21/22 12/17/22 tablet,extended release 24 hr insulin aspart U-100 100 unit/mL 5 unit subcut TIDWM 12/17/22 12/17/22 (3 mL) subcutaneous pen (Novolog FlexPen U-100 Insulin aspart) Allergies Allergy/AdvReac Type Severity Reaction Status Date / Time apixaban Allergy Unknown Rash Verified 02/25/23 19:16 canagliflozin Allergy Unknown Other Verified 02/25/23 19:16 pioglitazone Allergy Unknown Other Verified 02/25/23 19:16 Low Fat Milk Allergy Unknown Other Uncoded 02/25/23 19:16 Review of Systems Review of Systems: CONSTITUTIONAL: Denies fever, chills, or sweats. ENT: Denies rhinorrhea, congestion, sore throat, or otalgia. CARDIOVASCULAR: Denies chest pain, palpitations, or edema. RESPIRATORY: Denies cough or dyspnea. GASTROINTESTINAL: Diarrhea denies abdominal pain, nausea, vomiting, GENITOURINARY: Denies dysuria or hematuria. MUSCULOSKELETAL: Neck and upper back pain denies joint pain, or myalgia. NEUROLOGIC: Denies headache, numbness, dizziness, or weakness. PSYCHIATRIC: Denies anxiety or depression. [facility] Past Medical History Medical History (Updated 02/26/23 @ 01:53 by Gonzalez Roa MD) Abscess of left foot Amputation below knee CHF (congestive heart failure) ef 30-35% Chronic renal insufficiency, stage III (moderate) Coronary artery disease involving autologous artery coronary bypass graft Diabetes mellitus Exostosis of left foot Hyperlipidemia associated with type 2 diabetes mellitus Hypertension associated with diabetes Hypothyroidism Iron deficiency anemia Ischemic cardiomyopathy Osteomyelitis of foot, left, acute Paroxysmal atrial fibrillation Peripheral arterial occlusive disease Vitamin B12 deficiency Vitamin D deficiency Surgical History Surgical History (Updated 02/25/23 @ 23:37 by Halley Cordoba DO) History of left below knee amputation Hx of CABG S/P OBDULIO-BSO Family History Family History Grandparent Diabetes mellitus Grandparent Family history of arthritis Sibling Family history of arthritis Mother Family history of arthritis Mother Hypertension Father Hypertension Social History Social History (Updated 02/25/23 @ 23:38 by Halley Cordoba DO) Social History: She is and lives alone. She does not have any children. She is wheelchair dependent for ambulation. Her sisters are durable power defense attorney for healthcare. She worked for a company where she was t
[2023-02-25 19:54] LABS: Basophils Percent Auto 0.2 % (0.2-1.2); Hematocrit 22.2 % (37.0-47.0); Immature Granulocyte Absolute 0.23 K/mm3 (0.00-0.031); Lymphocytes Absolute Auto 1.15 K/mm3 (0.9-3.2); Lymphocytes Percent Auto 4.9 % (18.3-44.2); Mean Corpuscular HGB Conc 27.9 g/dl (32-36); Mean Corpuscular Hemoglobin 22.2 pg (26-34); Mean Corpuscular Volume 79.6 fl (80-100); Mean Platelet Volume 9.6 fl (7.4-10.4); Monocytes Absolute Auto 1.1 K/mm3 (0.1-0.6); Monocytes Percent Auto 4.8 % (2.6-8.5); Neutrophils Absolute Auto 20.9 K/mm3 (1.3-6.7); Neutrophils Percent Auto 89.1 % (45.5-73.1); Nucleated Red Blood Cells Perc 0.1 % (0.0-0.2); Platelet Count Result 484 k/mm3 (150-375); Red Blood Count 2.79 M/mm3 (4.2-5.4); Red Cell Distribution Width 17.9 % (11.5-14.5); White Blood Count 23.4 K/mm3 (4.5-10.0)
[2023-02-25] MEDS: SODIUM CHLORIDE 0.9% IV 1,000 ML 999 ML IV CONT (20:02)
[2023-02-25 20:04] LABS: INR 3.1; Prothrombin Time 34.5 Seconds (11.1-14.7)
[2023-02-25 20:06] LABS: Partial Thromboplastin Time 89.9 SECONDS (22.3-36.8)
[2023-02-25 20:07] LABS: Lactic Acid Reflex 7.2 mmol/L (0.7-2.0)
[2023-02-25 20:09] LABS: Albumin Level 3.1 g/dL (3.5-5.1); Alkaline Phosphatase 88 U/L (38-126); Anion Gap 13 mmol/L (8-16); Aspartate Amino Transferase 70 U/L (14-36); Bilirubin,Total 0.7 mg/dL (0.2-1.3); Blood Urea Nitrogen 49 mg/dL (7-17); Calcium 8.4 mg/dL (8.4-10.2); Carbon Dioxide 19 mmol/L (22-30); Chloride 104 mmol/L (98-107); Estimated CRCL calculation 23 ml/min; Estimated Glomerular Filt Rate 25; Glucose 236 mg/dL (65-110); Potassium 4.7 mmol/L (3.4-5.0); Sodium 136 mmol/L (137-145)
[2023-02-25 20:10] LABS: Hemoglobin 6.2 g/dL (12.0-15.0)
[2023-02-25 20:11] LABS: Hypochromasia 1+ (NORMAL); Platelet Estimate Increased (Adequate)
[2023-02-25 20:12] LABS: Anisocytosis 1+ (NORMAL); Ovalocytes 1+ (NORMAL); Schistocytes None Seen (NORMAL)
[2023-02-25 20:13] LABS: Alanine Aminotransferase 52 U/L (6-35)
[2023-02-25 20:19] LABS: CRP 21.3 mg/dL (<1.0)
[2023-02-25 20:19] LABS: Add Urine Microscopic? YES; Appearance Urine Clear (Clear); Bacteria Urine None Seen /hpf; Bilirubin Urine Negative (Negative); Blood Urine Negative (Negative); Color Urine Dark Yellow (Yellow); Glucose Urine UA Negative (Negative); Ketones Urine Negative (Negative); Leukocyte Esterase Ur Negative LEU/UL (Negative); Need Manual Microscopic Reviewed; Nitrate Urine Negative (Negative); Protein Urine 2+ mg/dL (Negative); Specific Grav Ur 1.019 (1.001-1.035); Squamous Epithelial Cell Urine None seen /hpf (Few); WBC Urine 0-5 /hpf
[2023-02-25 20:27] LABS: Creatine Kinase 999 U/L (30-135)
[2023-02-25] MEDS: CEFEPIME 2 GM/NS 50 ML 2 GM/50 ML BAG IVPB (20:31)
[2023-02-25] MEDS: SODIUM CHLORIDE 0.9% IV 2,300 ML/1,000 ML BAG 999 ML IV CONT ×3 (20:41→23:26)
[2023-02-25] MEDS: CALCIUM GLUCONATE 1,000 MG/10 ML VIAL 1000 MG IV PUSH (20:42)
[2023-02-25] MEDS: PANTOPRAZOLE SODIUM IV 40 MG VIAL 80 MG IV PUSH (20:54)
[2023-02-25 20:58] LABS: Hematocrit 21.3 % (37.0-47.0)
[2023-02-25 21:05] LABS: Hemoglobin 5.5 g/dL (12.0-15.0)
[2023-02-25] MEDS: HUMAN PROTHROMBIN COMPLEX(PCC) 3,500 UNITS in PREMIXIV 0 ML 504 UNITS IV CONT (22:10)
[2023-02-25 22:52] LABS: Reflex Lactic Acid Yes or No Add Lactic
--- NOTE | 2023-02-25 23:20 | PM.IMCN ---
Assessment and Plan Assessment and plan (1) Severe sepsis: Code(s): A41.9 - Sepsis, unspecified organism; R65.20 - Severe sepsis without septic shock Status: Acute (2) Transient hypotension: Code(s): I95.9 - Hypotension, unspecified Status: Acute (3) Symptomatic anemia: Code(s): D64.9 - Anemia, unspecified Status: Acute (4) Acute kidney injury superimposed on chronic kidney disease: Code(s): N17.9 - Acute kidney failure, unspecified; N18.9 - Chronic kidney disease, unspecified Status: Acute (5) Lower GI bleed: Code(s): K92.2 - Gastrointestinal hemorrhage, unspecified Status: Acute (6) Pneumonia: Qualifiers: Pneumonia type: due to unspecified organism Laterality: left Lung location: unspecified part of lung Qualified Code(s): J18.9 - Pneumonia, unspecified organism Code(s): J18.9 - Pneumonia, unspecified organism Status: Acute (7) Acute septic pulmonary embolism: Qualifiers: Acute cor pulmonale presence: unspecified Qualified Code(s): I26.90 - Septic pulmonary embolism without acute cor pulmonale Code(s): I26.90 - Septic pulmonary embolism without acute cor pulmonale Status: Acute (8) Abnormal findings on imaging test: Code(s): R93.89 - Abnormal findings on diagnostic imaging of other specified body structures Status: Acute (9) Severe sepsis with lactic acidosis: Code(s): A41.9 - Sepsis, unspecified organism; E87.20 - Acidosis, unspecified; R65.20 - Severe sepsis without septic shock Status: Acute Plan The patient has severe sepsis with criteria including leukocytosis, hypotension, lactic acidosis in the setting of suspected pulmonary emboli and pneumonia. Patient could also have some infectious myositis of the iliopsoas versus hematoma. The patient has been started on broad-spectrum antibiotic coverage with cefepime and vancomycin in the ER. Central line was placed by the ER physician right femoral. The patient has not yet required any pressors. Repeat lactic acid level is been ordered and is pending. His due to symptomatic anemia in the setting of active bleeding in both the GI tract and possible hematoma the five piece expansion maker hand felt the patient would benefit from higher level of care and thus patient is being transferred within the [facility] system as that is where the patient has established care. The patient did receive 30 mL/kilos fluid bolus. The patient has a Woo catheter in place to monitor strict I&O's. At blood transfusion has been ordered and a by ER provider. The patient received FFP and Kcentra. The patient does not for take anticoagulant. I wonder if the patient and does not have some DIC. FFP has already been provided and blood transfusion is ordered. I also suspect the patient has been on the floor much longer than she reports. Her CK is already 1000 this would seem excessive for patient only being on the floor for under 6 hours. Patient is already received IV fluid hydration. Will need to monitor fluid status closely given the patient has ischemic cardiomyopathy. 45 minutes spent in critical care activities. Due to a high probability of clinically significant, life threatening deterioration, the patient required my highest level of preparedness to intervene emergently and I personally spent this critical care time directly and personally managing the patient. This critical care time included obtaining a history; examining the patient; pulse oximetry; ordering and review of studies; arranging urgent treatment with development of a management plan; evaluation of patient's response to treatment; frequent reassessment; and discussions with other providers. It was exclusive of separately billable procedures and treating other patients and teaching time. Please see Assessment and Plan section and the rest of the note for further information on patient assessment and treatment. I discussed th
[2023-02-25 23:23] VITALS: BP 103/78; PULSE 79; RESP 15; TEMP 36.4; O2SAT 100
--- NOTE | 2023-02-26 00:02 | ECG_ITS ---
Measurements Intervals [place] Rate: 85 P: IA: 0 QRS: -44 QRSD: 91 T: 94 QT: 387 QTc: 462 Interpretive Statements POSSIBLE ATRIAL FIBRILLATION, HOWEVER, BASELINE ARTIFACT LIMITS INTERPRETATION PVC MARKED LEFT AXIS DEVIATION [QRS AXIS < -30] NONSPECIFIC ST & T-WAVE ABNORMALITY COMPARED TO ECG 08/21/2022 14:47:09 NO SIGNIFICANT CHANGES Electronically Signed On 02-26-2023 10:59:38 CDT by Eduard Bustillos M.D.
--- NOTE | 2023-02-26 00:06 | PC.NURSE ---
Patient told me that year was 2023 or 2024
--- NOTE | 2023-02-26 00:19 | PC.NURSE ---
Patient was unable to sign blood consent. Patient kept telling staff that the year was 2023 or 2024. Attempted to call patient's listed POA and other family and no one answered. Notified Genie caceres RN and Dr. Cordoba. Per Dr. Cordoba she will sign the blood consent form for implied consent. Consent form in patient's chart.
[2023-02-26 00:38] VITALS: BP 88/65; PULSE 92
[2023-02-26] MEDS: NOREPINEPHRINE 8 MG/D5W 250 ML 8 MG/250 ML BAG 9.38 MG IV CONT (00:38)
[2023-02-26 00:41] VITALS: BP 88/65; PULSE 87; RESP 28; TEMP 36.4; O2SAT 100
[2023-02-26] MEDS: TUBING, BLOOD SET 1 EACH XX (00:58)
[2023-02-26 01:03] VITALS: BP 123/63; PULSE 109; RESP 28; TEMP 36.9; O2SAT 100
[2023-02-26 01:13] VITALS: BP 141/68; PULSE 100; RESP 21; O2SAT 100
[2023-02-26 01:32] LABS: Lactate Dehydrogenase 299 U/L (120-246)
[2023-02-26 01:52] LABS: Fibrinogen 471 mg/dl (215-510)
[2023-02-26 02:03] VITALS: BP 144/67; PULSE 115; RESP 22; TEMP 36.9; O2SAT 100
[2023-02-26 02:08] VITALS: BP 144/67; PULSE 115; RESP 22; TEMP 36.9; O2SAT 100
[2023-02-26 02:08] LABS: D Dimer 0.69 ug/mL (<0.48)
--- NOTE | 2023-02-26 02:11 | PC.NURSE ---
Patient received one unit of blood. The other unit of blood was sent with [employer] crew [facility]
== END 2023-02-26 02:12 | disposition short-term general hospital (02) ==
PROVIDERS: Emergency Provider Preventive Medicine Aerospace Medicine; PCP Family Medicine
DX: A41.9 Sepsis, unspecified organism (principal); R65.21 Severe sepsis with septic shock; I26.90 Septic pulmonary embolism without acute cor pulmonale; J18.9 Pneumonia, unspecified organism; N17.9 Acute kidney failure, unspecified; E11.22 Type 2 diabetes mellitus with diabetic chronic kidney disease; I13.0 Hypertensive heart and chronic kidney disease with heart failure and stage 1 through stage 4 chronic kidney disease, or unspecified chronic kidney disease; N18.30 Chronic kidney disease, stage 3 unspecified; I50.9 Heart failure, unspecified; K92.2 Gastrointestinal hemorrhage, unspecified; E87.20 Acidosis, unspecified; I95.9 Hypotension, unspecified; M25.551 Pain in right hip; M79.81 Nontraumatic hematoma of soft tissue; D50.9 Iron deficiency anemia, unspecified; I25.5 Ischemic cardiomyopathy; I48.0 Paroxysmal atrial fibrillation; I25.810 Atherosclerosis of coronary artery bypass graft(s) without angina pectoris; E11.59 Type 2 diabetes mellitus with other circulatory complications; E11.51 Type 2 diabetes mellitus with diabetic peripheral angiopathy without gangrene; I73.9 Peripheral vascular disease, unspecified; E11.69 Type 2 diabetes mellitus with other specified complication; E78.49 Other hyperlipidemia; E03.9 Hypothyroidism, unspecified; E55.9 Vitamin D deficiency, unspecified; R93.89 Abnormal findings on diagnostic imaging of other specified body structures; Z89.512 Acquired absence of left leg below knee; Z95.1 Presence of aortocoronary bypass graft; Z90.710 Acquired absence of both cervix and uterus; Z90.79 Acquired absence of other genital organ(s); Z79.4 Long term (current) use of insulin; Z79.82 Long term (current) use of aspirin; Z79.85 Long-term (current) use of injectable non-insulin antidiabetic drugs; Z99.3 Dependence on wheelchair; R94.31 Abnormal electrocardiogram [ECG] [EKG]; Z95.0 Presence of cardiac pacemaker; W18.39XA Other fall on same level, initial encounter
CPT/HCPCS: 36415; 36430; 36556; 70450; 71045; 71250; 72125; 72128; 72131; 74176; 80053; 81001; 82550; 82948; 83605; 83615; 85014; 85018; 85025; 85380; 85384; 85610; 85730; 86140; 86850; 86900; 86901; 86923; 87040; 87081; 87147; 87181; 87186; 93005; 96365; 96366; 96367; 96375; 99285; 99291; C1751; C9113; J0131; J0612; J0692; J3370; J7030; J7168; P9016